=== PATIENT | male | born 1935 | race Caucasian/White ===

== ENCOUNTER 2017-11-11 20:40 | Observation (INO) | payer MEDICARE, OTHER ==
[~2017-11-11] VITALS: Ht 182.9 cm; Wt 96.5 kg
[~2017-11-11 20:40] MED LIST: ASPI81EC PO; Bactrim Ds Tab1 EACH PO; CALC.25 PO; CALCAVITDA PO; CARV6.25 PO; CLON.1 PO; DOXA4 PO; FURO20 PO; FURO40 PO; FURO80 PO; GABA100 PO; HYDCHL25 PO; LOSA50 PO; MERIBIN5 MG PO; POTA10T PO; POTCHL10ER PO
[2017-11-11 21:39] LABS: BASOPHILS ABSOLUTE AUTO 0.02 K/mm3 (0.00-0.23); BASOPHILS PERCENT AUTO 0 % (0-2); EOSINOPHILS PERCENT AUTO 0 % (0-6); Hematocrit 41.3 % (37.0-53.0); Hemoglobin 14.2 g/dL (13.5-17.5); IMMATURE GRAN ABSOLUTE AUTO 0.33 K/mm3 (0.00-0.10); IMMATURE GRAN PERCENT AUTO 3 % (0-1); LYMPHOCYTES ABSOLUTE AUTO 1.25 K/mm3 (0.84-5.20); LYMPHOCYTES PERCENT AUTO 9 % (21-46); MONOCYTES ABSOLUTE AUTO 0.71 K/mm3 (0.16-1.47); MONOCYTES PERCENT AUTO 5 % (4-13); Mean Corpuscular HGB 30.3 pg (26.0-34.0); Mean Corpuscular HGB Conc 34.4 g/dL (31.5-36.5); Mean Corpuscular Volume 88 fL (80-100); Mean Platelet Volume 9.9 fL (9.1-12.4); NEUTROPHILS ABSOLUTE AUTO 11.08 K/mm3 (1.96-9.15); NEUTROPHILS PERCENT AUTO 83 % (41-73); NRBC ABSOLUTE 0.02 K/mm3 (0.00-0.02); NRBC Auto 0.1 /100 WBC (0.0-0.2); Platelet Count 130 K/mm3 (150-400); RDW Coefficient Variation 14.7 % (11.7-14.2); RDW Standard Deviation 46.8 fL (35.1-46.3); Red Blood Cell Count 4.68 M/mm3 (4.30-5.90); White Blood Cell Count 13.39 K/mm3 (4.00-11.30)
[2017-11-11 21:57] LABS: Albumin, Blood 2.8 g/dL (3.4-5.0); Albumin/Globulin Ratio 0.8 (0.8-1.8); Bilirubin, Total 0.7 mg/dL (0.1-1.0); Bun/Creatinine Ratio 28.8 (12.0-20.0); Calcium, Blood 8.8 mg/dL (8.5-10.1); Creatinine, Blood 1.84 mg/dL (0.60-1.20); Globulin, Blood 3.5 g/dL (2.2-4.0); Potassium, Blood 4.1 mmol/L (3.5-5.5); Total Protein, Blood 6.3 g/dL (6.4-8.2)
[2017-11-11] MEDS ORDERED: CARV3.125 PO (22:39)
[2017-11-11] MEDS ORDERED: NYSTRITC TOP (22:39)
[2017-11-11] MEDS ORDERED: BUME2 PO (22:39)
[2017-11-11] MEDS ORDERED: ATOR10 PO (22:40)
[2017-11-11] MEDS ORDERED: PRED20 PO (22:40)
[2017-11-11] MEDS ORDERED: FAMO20 PO (22:40)
[2017-11-11 22:58] LABS: Source, Urine Catheter
[2017-11-11 23:12] LABS: Appearance, Urine Clear (Clear); Bilirubin, Urine Neg (Neg); Blood, Urine Neg (Neg); Color, Urine Yellow (P-Yellow); Glucose Qualitative, Urine 3+ (Neg); Ketones, Urine Neg (Neg); Leukocyte Esterase, Urine Neg (Neg); Nitrite, Urine Neg (Neg); Protein, Urine 3+ (Neg); Urobilinogen, Urine NORM (Normal); pH, Urine 6.5 (5.0-8.0)
[2017-11-11 23:18] LABS: Bacteria Not Seen /hpf; Red Blood Cells, Urine Not Seen /hpf (0-2); Squamous Epithelial Cells Few /hpf (Few); White Blood Cells, Urine Rare /hpf (0-5)
[2017-11-12 04:39] LABS: Hematocrit 34.5 % (37.0-53.0); Hemoglobin 11.7 g/dL (13.5-17.5); Mean Corpuscular HGB 30.5 pg (26.0-34.0); Mean Corpuscular HGB Conc 33.9 g/dL (31.5-36.5); Mean Corpuscular Volume 90 fL (80-100); Mean Platelet Volume 9.5 fL (9.1-12.4); NRBC ABSOLUTE 0.03 K/mm3 (0.00-0.02); NRBC Auto 0.4 /100 WBC (0.0-0.2); Platelet Count 86 K/mm3 (150-400); RDW Coefficient Variation 14.7 % (11.7-14.2); RDW Standard Deviation 47.3 fL (35.1-46.3); Red Blood Cell Count 3.84 M/mm3 (4.30-5.90); White Blood Cell Count 8.38 K/mm3 (4.00-11.30)
[2017-11-12 05:02] LABS: Albumin, Blood 2.2 g/dL (3.4-5.0); Albumin/Globulin Ratio 0.8 (0.8-1.8); Bilirubin, Total 0.7 mg/dL (0.1-1.0); Bun/Creatinine Ratio 27.5 (12.0-20.0); Calcium, Blood 8.5 mg/dL (8.5-10.1); Creatinine, Blood 1.67 mg/dL (0.60-1.20); Globulin, Blood 2.9 g/dL (2.2-4.0); Potassium, Blood 3.8 mmol/L (3.5-5.5); Total Protein, Blood 5.1 g/dL (6.4-8.2)
[2017-11-13 05:20] LABS: Hematocrit 31.1 % (37.0-53.0); Hemoglobin 10.5 g/dL (13.5-17.5); Mean Corpuscular HGB 30.5 pg (26.0-34.0); Mean Corpuscular HGB Conc 33.8 g/dL (31.5-36.5); Mean Corpuscular Volume 90 fL (80-100); Platelet Count 92 K/mm3 (150-400); RDW Coefficient Variation 14.9 % (11.7-14.2); RDW Standard Deviation 48.7 fL (35.1-46.3); Red Blood Cell Count 3.44 M/mm3 (4.30-5.90); White Blood Cell Count 8.59 K/mm3 (4.00-11.30)
[2017-11-13 05:36] LABS: Bun/Creatinine Ratio 25.3 (12.0-20.0); Creatinine, Blood 1.62 mg/dL (0.60-1.20); Potassium, Blood 4.1 mmol/L (3.5-5.5)
[2017-11-14 05:48] LABS: Hematocrit 31.3 % (37.0-53.0); Hemoglobin 10.6 g/dL (13.5-17.5)
[2017-11-14 06:04] LABS: Anion Gap 8 mmol/L (6-16); Blood Urea Nitrogen 45 mg/dL (8-24); Bun/Creatinine Ratio 24.9 (12.0-20.0); CO2, Blood 28 mmol/L (21-32); Calcium, Blood 8.2 mg/dL (8.5-10.1); Chloride, Blood 104 mmol/L (98-108); Creatinine, Blood 1.81 mg/dL (0.60-1.20); Glomerular Filtration Rate 39 (60-); Glucose, Blood 157 mg/dL (70-99); Magnesium, Blood 1.9 mg/dL (1.6-2.4); Phosphorus, Blood 2.8 mg/dL (2.5-4.9); Potassium, Blood 4.1 mmol/L (3.5-5.5); Sodium, Blood 140 mmol/L (136-145)
[2017-11-14] MEDS ORDERED: LOSA25 PO (14:45)
[2017-11-14] MEDS ORDERED: ACIDOPHILUS1 EAC1 PO (14:57)
[2017-11-14] MEDS ORDERED: Bactrim 400-801 EACH PO (14:58)
[2017-11-14] MEDS ORDERED: TAMS.4ER PO (14:58)
[2017-11-14] MEDS ORDERED: CEPH500 PO (14:59)
[2017-11-14] MEDS ORDERED: METR500 PO (15:00)
== END 2017-11-14 15:41 | disposition home or self-care (01) ==
LOC: ER 20:40 → MEDS 20:41 → ER 11-12 01:13 → MEDS 11-12 01:13 → ENPENDDIS 11-14 12:00 → MEDS 11-14 15:41
PROVIDERS: Emergency Medicine; Internal Medicine; Internal Medicine Nephrology
DX: R33.9 Retention of urine, unspecified (principal); K57.32 Diverticulitis of large intestine without perforation or abscess without bleeding; E11.22 Type 2 diabetes mellitus with diabetic chronic kidney disease; I12.9 Hypertensive chronic kidney disease with stage 1 through stage 4 chronic kidney disease, or unspecified chronic kidney disease; N18.3 Chronic kidney disease, stage 3 (moderate); D63.1 Anemia in chronic kidney disease; E86.0 Dehydration; E88.09 Other disorders of plasma-protein metabolism, not elsewhere classified; E86.9 Volume depletion, unspecified; F19.20 Other psychoactive substance dependence, uncomplicated; E11.649 Type 2 diabetes mellitus with hypoglycemia without coma; Z79.52 Long term (current) use of systemic steroids; Z79.899 Other long term (current) drug therapy; Z88.8 Allergy status to other drugs, medicaments and biological substances; Z79.82 Long term (current) use of aspirin
CPT/HCPCS: 36415; 51702; 51798; 74176; 80048; 80053; 80069; 81001; 83036; 83690; 83735; 85014; 85018; 85025; 85027; 96365; 96366; 96367; 96372; 96375; 96376; 99285; G0378; J0696; J0744; J1650; J2405; J3010; J7030

== ENCOUNTER 2017-12-21 15:02 | Emergency (ER) | payer MEDICARE, OTHER ==
[~2017-12-21] VITALS: Ht 182.9 cm; Wt 97.5 kg
[~2017-12-21 15:02] MED LIST changes: +ACIDOPHILUS1 EAC1 PO; +ATOR10 PO; +BUME2 PO; +Bactrim 400-801 EACH PO; +CARV3.125 PO; +CEPH500 PO; +FAMO20 PO; +LOSA25 PO; +METR500 PO; +NYSTRITC TOP; +PRED20 PO; +TAMS.4ER PO
[2017-12-21] MEDS ORDERED: CARV3.125 PO (15:32)
[2017-12-21] MEDS ORDERED: LOSA25 PO (15:33)
[2017-12-21] MEDS ORDERED: BUME2 PO (15:33)
[2017-12-21] MEDS ORDERED: PRED20 PO (15:34)
[2017-12-21] MEDS ORDERED: TAMS.4ER PO (15:35)
[2017-12-21 16:05] LABS: Calcium, Ionized (POC) 1.04 mmol/L (1.10-1.46); Chloride (POC) 91 mmol/L (98-108); Creatinine (POC) 1.8 mg/dL (0.8-1.3); Glucose (ISTAT POC) 327 mg/dL (70-99); Hemoglobin (POC) 12.2 g/dL (13.5-17.5); Potassium (POC) 3.9 mmol/L (3.5-5.5); Sodium (POC) 132 mmol/L (135-148); Total CO2 (POC) 32 mmol/L (21-32)
[2017-12-21] MEDS ORDERED: Coumadin5 MG PO (17:47)
[2017-12-21] MEDS ORDERED: Lovenox100 MG/1 M SC (17:47)
[2017-12-21 18:27] LABS: International Normalized Ratio 1.01; Prothrombin Time Results 10.4 Sec (9.7-11.5)
[2017-12-23] MEDS ORDERED: GLIP5 PO (16:19)
== END 2017-12-21 18:22 | disposition home or self-care (01) ==
LOC: ER 15:02
PROVIDERS: Physician Assistant
DX: I82.411 Acute embolism and thrombosis of right femoral vein (principal); Z88.8 Allergy status to other drugs, medicaments and biological substances; Z79.899 Other long term (current) drug therapy; Z79.52 Long term (current) use of systemic steroids; Z79.2 Long term (current) use of antibiotics; I10 Essential (primary) hypertension; Z87.891 Personal history of nicotine dependence
CPT/HCPCS: 36415; 80047; 85014; 85610; 96372; 99283; J1650

== ENCOUNTER 2018-05-31 12:00 | Emergency (ER) | payer MEDICARE, OTHER ==
[~2018-05-31] VITALS: Ht 182.9 cm; Wt 86.2 kg
[~2018-05-31 12:00] MED LIST changes: +CIPR250 PO; +Cardizem LA180 MG PO; +Coumadin5 MG PO; +GLIP5 PO; +LEVFLO500 PO; +Lovenox100 MG/1 M SC; +Macrodantin100 MG PO; +Novolog Fl100 UNIT/1 SC; +Novolog Fl100 UNIT/1 SQ; +POTCHL20ER PO; +SPIR25 PO; +Vancocin HCL1000 M1 PO
[2018-05-31 13:31] LABS: BASOPHILS ABSOLUTE AUTO 0.05 K/mm3 (0.00-0.23); BASOPHILS PERCENT AUTO 0 % (0-2); EOSINOPHILS ABSOLUTE AUTO 0.07 K/mm3 (0.00-0.68); EOSINOPHILS PERCENT AUTO 1 % (0-6); Hematocrit 35.8 % (37.0-53.0); Hemoglobin 10.9 g/dL (13.5-17.5); IMMATURE GRAN ABSOLUTE AUTO 0.06 K/mm3 (0.00-0.10); IMMATURE GRAN PERCENT AUTO 1 % (0-1); LYMPHOCYTES ABSOLUTE AUTO 1.25 K/mm3 (0.84-5.20); LYMPHOCYTES PERCENT AUTO 11 % (21-46); MONOCYTES ABSOLUTE AUTO 1.04 K/mm3 (0.16-1.47); MONOCYTES PERCENT AUTO 9 % (4-13); Mean Corpuscular HGB 28.5 pg (26.0-34.0); Mean Corpuscular HGB Conc 30.4 g/dL (31.5-36.5); Mean Corpuscular Volume 94 fL (80-100); NEUTROPHILS ABSOLUTE AUTO 9.07 K/mm3 (1.96-9.15); NEUTROPHILS PERCENT AUTO 79 % (41-73); RDW Coefficient Variation 15.9 % (11.7-14.2); RDW Standard Deviation 54.8 fL (35.1-46.3); Red Blood Cell Count 3.83 M/mm3 (4.30-5.90); White Blood Cell Count 11.54 K/mm3 (4.00-11.30)
[2018-05-31 13:38] LABS: Albumin, Blood 2.7 g/dL (3.4-5.0); Albumin/Globulin Ratio 0.6 (0.8-1.8); Bilirubin, Total 0.5 mg/dL (0.1-1.0); Bun/Creatinine Ratio 14.7 (12.0-20.0); Calcium, Blood 10.3 mg/dL (8.5-10.1); Creatinine, Blood 2.32 mg/dL (0.60-1.20); Globulin, Blood 4.8 g/dL (2.2-4.0); Potassium, Blood 4.9 mmol/L (3.5-5.5); Total Protein, Blood 7.5 g/dL (6.4-8.2)
[2018-05-31 13:47] LABS: International Normalized Ratio 1.01; Prothrombin Time Results 10.4 Sec (9.7-11.5)
[2018-05-31 13:48] LABS: Mean Platelet Volume 10.3 fL (9.1-12.4); Platelet Count 255 K/mm3 (150-400)
[2018-05-31] MEDS ORDERED: MAGCHL64ER PO (15:17)
[2018-05-31] MEDS ORDERED: BUME2 PO (15:17)
[2018-05-31] MEDS ORDERED: FLUC150A PO (15:17)
[2018-05-31] MEDS ORDERED: NYST100000 (15:18)
== END 2018-05-31 17:39 | disposition home or self-care (01) ==
LOC: ER 12:00
PROVIDERS: Physician Assistant
DX: I82.402 Acute embolism and thrombosis of unspecified deep veins of left lower extremity (principal); I10 Essential (primary) hypertension; R22.42 Localized swelling, mass and lump, left lower limb; M79.605 Pain in left leg; I82.412 Acute embolism and thrombosis of left femoral vein; I82.432 Acute embolism and thrombosis of left popliteal vein; I82.4Z2 Acute embolism and thrombosis of unspecified deep veins of left distal lower extremity
CPT/HCPCS: 36415; 80053; 85025; 85610; 85730; 93005; 93010; 93971; 99283-25

== ENCOUNTER 2018-06-19 15:10 | Day surgery (SDC) | payer MEDICARE, OTHER ==
[~2018-06-19 15:10] MED LIST changes: +FLUC150A PO; +MAGCHL64ER PO; +NYST100000
[2018-06-19] MEDS ORDERED: Stool Softener100 MG PO (15:56)
[2018-06-19] MEDS ORDERED: 24 HOUR ALLERG9.9 ML (15:57)
--- NOTE | 2018-06-19 18:45 | NUR ---
1700: PT WAITED AFTER INFUSION FINISHED TO MONITOR FOR S/S OF REACTION. IV FLUSHED WITH 10 ML NS AND SWAB CAP PLACED. 2X2 GAUZE UNDER END CAPS/CLAMP AND OVER SITE AND WRAPPED LIGHTLY IN COBAN TO MAINTAIN INTEGRITY OF SITE. PT TEACHING ON IV SITE CARE. VERBALIZED UNDERSTANDING. PT TO RETURN TOMORROW FOR INFUSION.
== END 2018-06-19 16:55 | disposition home or self-care (01) ==
LOC: ATC 15:10
DX: N39.0 Urinary tract infection, site not specified (principal)
CPT/HCPCS: 96365; J0713

== ENCOUNTER 2018-06-20 00:05 | Day surgery (SDC) | payer MEDICARE, OTHER ==
[~2018-06-20 00:05] MED LIST changes: +24 HOUR ALLERG9.9 ML; +Stool Softener100 MG PO
== END 2018-06-20 16:39 | disposition home or self-care (01) ==
LOC: ATC 00:05
DX: N39.0 Urinary tract infection, site not specified (principal)
CPT/HCPCS: 96365; J0713

== ENCOUNTER 2018-06-21 00:18 | Day surgery (SDC) | payer MEDICARE, OTHER | END 2018-06-21 16:00 | disposition home or self-care (01) | LOC: ATC 00:18 | DX: N39.0 Urinary tract infection, site not specified (principal); I12.9 Hypertensive chronic kidney disease with stage 1 through stage 4 chronic kidney disease, or unspecified chronic kidney disease; N18.4 Chronic kidney disease, stage 4 (severe); D63.1 Anemia in chronic kidney disease; R05 Cough; J47.9 Bronchiectasis, uncomplicated; R91.8 Other nonspecific abnormal finding of lung field; J43.9 Emphysema, unspecified | CPT/HCPCS: 71250; 96365; J0713 ==

== ENCOUNTER 2018-06-22 00:58 | Day surgery (SDC) | payer MEDICARE, OTHER | END 2018-06-22 15:55 | disposition home or self-care (01) | LOC: ATC 00:58 | DX: N39.0 Urinary tract infection, site not specified (principal); I12.9 Hypertensive chronic kidney disease with stage 1 through stage 4 chronic kidney disease, or unspecified chronic kidney disease; N18.4 Chronic kidney disease, stage 4 (severe); D63.1 Anemia in chronic kidney disease | CPT/HCPCS: 96365; J0713 ==

== ENCOUNTER 2018-06-23 00:58 | Day surgery (SDC) | payer MEDICARE, OTHER | END 2018-06-23 23:06 | disposition home or self-care (01) | LOC: ATC 00:58 | DX: N39.0 Urinary tract infection, site not specified (principal); I12.9 Hypertensive chronic kidney disease with stage 1 through stage 4 chronic kidney disease, or unspecified chronic kidney disease; N18.4 Chronic kidney disease, stage 4 (severe); D63.1 Anemia in chronic kidney disease | CPT/HCPCS: 96365; J0713 ==

== ENCOUNTER 2018-11-13 10:12 | Day surgery (SDC) | payer MEDICARE, OTHER ==
[~2018-11-13] VITALS: Ht 177.8 cm; Wt 97.7 kg
[2018-11-13] MEDS ORDERED: METO5 PO (11:19)
[2018-11-13] MEDS ORDERED: CARV25 PO (11:20)
[2018-11-13] MEDS ORDERED: CYCLOPHOSPHAMID50 MG PO (11:20)
[2018-11-13] MEDS ORDERED: GLUC500 PO (11:21)
[2018-11-13] MEDS ORDERED: ASCO500 PO (11:21)
[2018-11-13 11:30] LABS: BASOPHILS ABSOLUTE AUTO 0.05 K/mm3 (0.00-0.23); BASOPHILS PERCENT AUTO 2 % (0-2); EOSINOPHILS ABSOLUTE AUTO 0.11 K/mm3 (0.00-0.68); EOSINOPHILS PERCENT AUTO 4 % (0-6); Hematocrit 33.3 % (37.0-53.0); Hemoglobin 10.4 g/dL (13.5-17.5); IMMATURE GRAN ABSOLUTE AUTO 0.02 K/mm3 (0.00-0.10); IMMATURE GRAN PERCENT AUTO 1 % (0-1); LYMPHOCYTES PERCENT AUTO 17 % (21-46); MONOCYTES ABSOLUTE AUTO 0.33 K/mm3 (0.16-1.47); MONOCYTES PERCENT AUTO 11 % (4-13); Mean Corpuscular HGB 30.6 pg (26.0-34.0); Mean Corpuscular HGB Conc 31.2 g/dL (31.5-36.5); Mean Corpuscular Volume 98 fL (80-100); Mean Platelet Volume 10.1 fL (9.1-12.4); NEUTROPHILS ABSOLUTE AUTO 1.98 K/mm3 (1.96-9.15); NEUTROPHILS PERCENT AUTO 66 % (41-73); Platelet Count 190 K/mm3 (150-400); RDW Coefficient Variation 18.2 % (11.7-14.2); RDW Standard Deviation 65.1 fL (35.1-46.3); White Blood Cell Count 2.99 K/mm3 (4.00-11.30)
[2018-11-13 11:38] LABS: International Normalized Ratio 0.98; Prothrombin Time Results 10.4 Sec (9.7-11.5)
[2018-11-13 11:39] LABS: Bun/Creatinine Ratio 15.1 (12.0-20.0); Calcium, Blood 8.5 mg/dL (8.5-10.1); Creatinine, Blood 3.65 mg/dL (0.60-1.20); Potassium, Blood 3.7 mmol/L (3.5-5.5)
--- NOTE | 2018-11-13 12:06 | NUR ---
PT PREPPED AND READY FOR PERMACATH PROCEDURE. DR. LUIS AT BEDSIDE TO SIGN PAPERWORK. PT APPEARS TO HAVE NO NEEDS AT THIS TIME.
--- NOTE | 2018-11-13 14:12 | NUR ---
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 ARMIJO. REPORTED THAT PT WILL BE CALLED BY [facility], [facility] WHEN IT IS APPROPRIATE TO SCHEDULE DIALYSIS. PT AND HIS AWARE. PT EATING AND DRINKING POST PROCEDURE. TOLERATING WELL. DENIES PAIN. PT HAVING HYPERTENSION, HAS HOME MEDS, PER DR. LUIS PT IS OKAY TO TAKE HOME BP MEDICATION, COREG. WILL CONTINUE TO MONITOR.
--- NOTE | 2018-11-13 15:01 | NUR ---
PT VERBALIZED UNDERSTANDING OF D/C INSTRUCTIONS. PERMACATH TO RIGHT CHEST WNL, STERI STRIPS OOZY, PRESSURE DRESSING REMAINS IN PLACE AT TIME OF DISPO. PT AMBULATES WITH STEADY GAIT TO RESTROOM. HERE TO DRIVE HIM HOME. PT DENIES PAIN OR SOB. BP SLOWLY DECREASING, PT REPORTS HE WILL MONITOR AT HOME. PT DENIES NEED FOR W/C OUT TO PRIVATE VEHICLE. NADN AT TIME OF DISPO. ENCOURAGED TO FOLLOW UP WITH DR ARMIJO OR ATIF.
--- NOTE | 2018-11-13 16:30 | NUR ---
PT RETURNS TO HEART CENTER C/O BLEEDING FROM SMALL INCISION FROM TUNNELED CATHETER PLACEMENT. 15 MINUTES MANUAL PRESSURE HELD ABOVE INCISION, BLEEDING STOPPED. RED CLOTH DOT DRESSING APPLIED. NEW PRESSURE DRESSING APPLIED. DR. LUIS PREVIOUSLY IN TO SEE PT. PT ENCOURAGED TO RETURN WITH ANY OTHER BLEEDING ISSUES. VSS. PT AMBULATES TO PRIVATE VEHICLE WITH STEADY GAIT, DRIVING HIM HOME.
== END 2018-11-13 16:45 | disposition home or self-care (01) ==
LOC: MHTC 10:12
PROVIDERS: Radiology Diagnostic Radiology
DX: I12.0 Hypertensive chronic kidney disease with stage 5 chronic kidney disease or end stage renal disease (principal); E11.22 Type 2 diabetes mellitus with diabetic chronic kidney disease; N18.6 End stage renal disease; G47.33 Obstructive sleep apnea (adult) (pediatric); D50.9 Iron deficiency anemia, unspecified; E78.5 Hyperlipidemia, unspecified; Z79.899 Other long term (current) drug therapy
CPT/HCPCS: 36558; 76937; 80048; 85025; 85610; 99152; 99153; C1750; C1769; J1644; J2250; J3010; J7040

== ENCOUNTER 2018-11-14 09:50 | Emergency (ER) | payer MEDICARE, OTHER ==
[~2018-11-14] VITALS: Ht 182.9 cm; Wt 99.8 kg
[~2018-11-14 09:50] MED LIST changes: +ASCO500 PO; +CARV25 PO; +CYCLOPHOSPHAMID50 MG PO; +GLUC500 PO; +METO5 PO
[2018-11-14 10:32] LABS: BASOPHILS ABSOLUTE AUTO 0.04 K/mm3 (0.00-0.23); BASOPHILS PERCENT AUTO 2 % (0-2); EOSINOPHILS ABSOLUTE AUTO 0.07 K/mm3 (0.00-0.68); EOSINOPHILS PERCENT AUTO 3 % (0-6); Hematocrit 32.6 % (37.0-53.0); Hemoglobin 10.3 g/dL (13.5-17.5); IMMATURE GRAN PERCENT AUTO 0 % (0-1); LYMPHOCYTES ABSOLUTE AUTO 0.45 K/mm3 (0.84-5.20); LYMPHOCYTES PERCENT AUTO 19 % (21-46); MONOCYTES ABSOLUTE AUTO 0.37 K/mm3 (0.16-1.47); MONOCYTES PERCENT AUTO 15 % (4-13); Mean Corpuscular HGB 31.1 pg (26.0-34.0); Mean Corpuscular HGB Conc 31.6 g/dL (31.5-36.5); Mean Corpuscular Volume 99 fL (80-100); NEUTROPHILS ABSOLUTE AUTO 1.49 K/mm3 (1.96-9.15); NEUTROPHILS PERCENT AUTO 62 % (41-73); Platelet Count 168 K/mm3 (150-400); RDW Standard Deviation 64.5 fL (35.1-46.3); Red Blood Cell Count 3.31 M/mm3 (4.30-5.90); White Blood Cell Count 2.42 K/mm3 (4.00-11.30)
[2018-11-14 10:54] LABS: Bun/Creatinine Ratio 15.3 (12.0-20.0); Calcium, Blood 8.1 mg/dL (8.5-10.1); Creatinine, Blood 3.65 mg/dL (0.60-1.20); Potassium, Blood 3.9 mmol/L (3.5-5.5)
== END 2018-11-14 11:31 | disposition home or self-care (01) ==
LOC: ER 09:50
PROVIDERS: Emergency Medicine
DX: R60.0 Localized edema (principal); I12.0 Hypertensive chronic kidney disease with stage 5 chronic kidney disease or end stage renal disease; N18.6 End stage renal disease; Z88.8 Allergy status to other drugs, medicaments and biological substances; Z79.899 Other long term (current) drug therapy; I48.91 Unspecified atrial fibrillation; Z87.891 Personal history of nicotine dependence
CPT/HCPCS: 36415; 80048; 85025; 93971; 99284-25

== ENCOUNTER → 2019-01-11 | Outpatient (CLI) | payer MEDICARE, OTHER | END | disposition home or self-care (01) | LOC: EDSTATUS 11:22 → LAB 12:23 → LAB SHORT 12:23 | DX: D51.8 Other vitamin B12 deficiency anemias (principal) | CPT/HCPCS: 82607; 82746 ==

== ENCOUNTER → 2019-04-01 | Outpatient (CLI) | payer MEDICARE, OTHER ==
[2019-04-01 16:51] LABS: Albumin, Blood 3.4 g/dL (3.4-5.0); Albumin/Globulin Ratio 1.2 (0.8-1.8); Bilirubin, Total 0.7 mg/dL (0.1-1.0); Bun/Creatinine Ratio 21.6 (12.0-20.0); Calcium, Blood 9.3 mg/dL (8.5-10.1); Creatinine, Blood 2.68 mg/dL (0.60-1.20); Globulin, Blood 2.9 g/dL (2.2-4.0); Potassium, Blood 3.8 mmol/L (3.5-5.5); Total Protein, Blood 6.3 g/dL (6.4-8.2)
== END | disposition home or self-care (01) ==
LOC: LAB SHORT 13:10 → LAB 13:10
PROVIDERS: Internal Medicine Hematology & Oncology
DX: E11.65 Type 2 diabetes mellitus with hyperglycemia (principal); D64.9 Anemia, unspecified
CPT/HCPCS: 80053

== ENCOUNTER 2019-12-05 00:09 | Day surgery (SDC) | payer MEDICARE, OTHER ==
[~2019-12-05 00:09] MED LIST changes: -24 HOUR ALLERG9.9 ML; +FERROUS SULFAT324 MG PO; +FLONASE ALLERG9.9 M2
== END 2019-12-05 15:36 | disposition home or self-care (01) ==
LOC: ATC 00:09
DX: N39.0 Urinary tract infection, site not specified (principal); I12.9 Hypertensive chronic kidney disease with stage 1 through stage 4 chronic kidney disease, or unspecified chronic kidney disease; N18.9 Chronic kidney disease, unspecified; Z79.899 Other long term (current) drug therapy
CPT/HCPCS: 96365; J0713

== ENCOUNTER 2019-12-06 01:55 | Day surgery (SDC) | payer MEDICARE, OTHER | END 2019-12-06 15:29 | disposition home or self-care (01) | LOC: ATC 01:55 | DX: N39.0 Urinary tract infection, site not specified (principal); I12.9 Hypertensive chronic kidney disease with stage 1 through stage 4 chronic kidney disease, or unspecified chronic kidney disease; N18.9 Chronic kidney disease, unspecified; Z79.899 Other long term (current) drug therapy | CPT/HCPCS: 96365; J0713 ==

== ENCOUNTER 2020-06-09 12:05 | Inpatient (IN) | payer MEDICARE, OTHER ==
[~2020-06-09] VITALS: Ht 182.9 cm; Wt 96.0 kg
[~2020-06-09 12:05] MED LIST changes: -ACIDOPHILUS1 EAC1 PO; -CARV25 PO; +CARVEDILOL12.5 MG PO; -FERROUS SULFAT324 MG PO; +FERROUS SULFAT325 M3 PO; -MAGCHL64ER PO; +Magnesium250 MG PO; +PROBIOTIC1 EA13 PO
[2020-06-09 13:28] LABS: BASOPHILS ABSOLUTE AUTO 0.02 K/mm3 (0.00-0.23); BASOPHILS PERCENT AUTO 0 % (0-2); EOSINOPHILS ABSOLUTE AUTO 0.11 K/mm3 (0.00-0.68); EOSINOPHILS PERCENT AUTO 1 % (0-6); Hematocrit 35.4 % (37.0-53.0); Hemoglobin 11.8 g/dL (13.5-17.5); IMMATURE GRAN ABSOLUTE AUTO 0.03 K/mm3 (0.00-0.10); IMMATURE GRAN PERCENT AUTO 0 % (0-1); LYMPHOCYTES PERCENT AUTO 13 % (21-46); MONOCYTES ABSOLUTE AUTO 1.02 K/mm3 (0.16-1.47); MONOCYTES PERCENT AUTO 13 % (4-13); Mean Corpuscular HGB 33.1 pg (26.0-34.0); Mean Corpuscular HGB Conc 33.3 g/dL (31.5-36.5); Mean Corpuscular Volume 99 fL (80-100); NEUTROPHILS ABSOLUTE AUTO 5.58 K/mm3 (1.96-9.15); NEUTROPHILS PERCENT AUTO 72 % (41-73); Platelet Count 195 K/mm3 (150-400); RDW Coefficient Variation 14.5 % (11.7-14.2); RDW Standard Deviation 52.8 fL (35.1-46.3); Red Blood Cell Count 3.56 M/mm3 (4.30-5.90); White Blood Cell Count 7.76 K/mm3 (4.00-11.30)
[2020-06-09 13:51] LABS: Albumin, Blood 3.1 g/dL (3.4-5.0); Albumin/Globulin Ratio 0.6 (0.8-1.8); Bilirubin, Total 0.5 mg/dL (0.1-1.0); Bun/Creatinine Ratio 32.6 (12.0-20.0); Calcium, Blood 9.7 mg/dL (8.5-10.1); Creatinine, Blood 2.91 mg/dL (0.60-1.20); Globulin, Blood 4.8 g/dL (2.2-4.0); Potassium, Blood 4.1 mmol/L (3.5-5.5); Total Protein, Blood 7.9 g/dL (6.4-8.2)
[2020-06-09 14:30] LABS: Source, Urine Voided
[2020-06-09 14:33] LABS: Bilirubin, Urine Neg (Neg); Blood, Urine Neg (Neg); Glucose Qualitative, Urine Neg (Neg); Ketones, Urine Neg (Neg); Leukocyte Esterase, Urine 1+ (Neg); Nitrite, Urine Neg (Neg); Protein, Urine Neg (Neg); Urobilinogen, Urine NORM (Normal)
[2020-06-09 14:56] LABS: Appearance, Urine Clear (Clear); Color, Urine Pale Yellow (P-Yellow)
[2020-06-09 14:57] LABS: Bacteria Few /hpf; Hyaline Casts 0-2 /lpf (0-2); Red Blood Cells, Urine 0-2 /hpf (0-2); Squamous Epithelial Cells Few /hpf (Few); White Blood Cells, Urine 0-2 /hpf (0-5)
[2020-06-09] MEDS ORDERED: POTCHL20ER PO (16:37)
[2020-06-09] MEDS ORDERED: SPIR25 PO (16:38)
[2020-06-10 04:17] LABS: BASOPHILS ABSOLUTE AUTO 0.03 K/mm3 (0.00-0.23); BASOPHILS PERCENT AUTO 0 % (0-2); EOSINOPHILS ABSOLUTE AUTO 0.12 K/mm3 (0.00-0.68); EOSINOPHILS PERCENT AUTO 2 % (0-6); Hematocrit 32.3 % (37.0-53.0); Hemoglobin 10.8 g/dL (13.5-17.5); IMMATURE GRAN ABSOLUTE AUTO 0.04 K/mm3 (0.00-0.10); IMMATURE GRAN PERCENT AUTO 1 % (0-1); LYMPHOCYTES ABSOLUTE AUTO 1.08 K/mm3 (0.84-5.20); LYMPHOCYTES PERCENT AUTO 15 % (21-46); MONOCYTES ABSOLUTE AUTO 0.81 K/mm3 (0.16-1.47); MONOCYTES PERCENT AUTO 11 % (4-13); Mean Corpuscular HGB 32.8 pg (26.0-34.0); Mean Corpuscular HGB Conc 33.4 g/dL (31.5-36.5); Mean Corpuscular Volume 98 fL (80-100); Mean Platelet Volume 9.9 fL (9.1-12.4); NEUTROPHILS ABSOLUTE AUTO 5.03 K/mm3 (1.96-9.15); NEUTROPHILS PERCENT AUTO 71 % (41-73); Platelet Count 182 K/mm3 (150-400); RDW Coefficient Variation 14.4 % (11.7-14.2); RDW Standard Deviation 51.5 fL (35.1-46.3); Red Blood Cell Count 3.29 M/mm3 (4.30-5.90); White Blood Cell Count 7.11 K/mm3 (4.00-11.30)
[2020-06-10 04:34] LABS: Bun/Creatinine Ratio 34.7 (12.0-20.0); Creatinine, Blood 2.59 mg/dL (0.60-1.20); Potassium, Blood 3.7 mmol/L (3.5-5.5)
--- NOTE | 2020-06-10 04:40 | NUR ---
SHIFT SUMMARY NO ACUTE CHANGES THIS SHIFT, NO C/O ANY KIND, NPO T/O SHIFT, ST BY ASSIST TO D/T IV LINES, SLEEPING AT THIS TIME, CALL LIGHT IN REACH, WILL CONT TO MONITOR UNTIL REPORT GIVEN TO DAY RN.
--- NOTE | 2020-06-10 15:54 | NUR ---
PT IS A/OX3, PLEASANT AND COOPERATIVE, THE PT HAS BEEN NPO T/O THE DAY, THE PT IS SOMEWHAT IRRITABLE DUE TO THE NPO STATUS AND UNSURE WHEN HIS PROCEDURE WILL TAKE PLACE, THE PT APPEARS TO BE BREATHING EASILY ON RA AT THIS TIME, THE PT REPORTED ONLY MILD ABD PAIN AT THIS TIME, IS AT THE BADSIDE, CALL LIGHT IN REACH, WILL CONTINUE TO MONITOR AND ASSESS FOR CHANGES
--- NOTE | 2020-06-10 16:35 | NUR ---
DR MACIAS RECENTLY HERE TO SEE PT, FAMILY PRESENT. THIS RN AND OTHER RN ESTRELLITA DISCUSSED PT'S STATUS WITH DR MACIAS. LAB ALSO HERE RECENLTY.
--- NOTE | 2020-06-10 16:36 | NUR ---
THIS RN RECENTLY RECIEVED REPORT AND IS ASSUMING CARE OF PT.
--- NOTE | 2020-06-10 16:37 | NUR ---
IMAGING REPORTS RECIEVING STAT ORDER FOR CT. PT REPORTS BEEN NPO. ASSISTED WITH ADL'S PRN.
[2020-06-10 16:53] LABS: International Normalized Ratio 1.08; Prothrombin Time Results 11.5 Sec (9.7-11.5)
--- NOTE | 2020-06-10 17:12 | NUR ---
PT TO IMAGING BY W/C, TELE NOTIFIED. FAMILY PRESENT.
--- NOTE | 2020-06-10 18:15 | NUR ---
PT BACK FROM HAVING DRAIN PLACED TO RIGHT LOWER ABD. APPEARS WNL. WILL ORDER DIET. PT GIVEN CRANBERRY JUICE PER HIS REQ.
--- NOTE | 2020-06-10 18:40 | NUR ---
TELE REPORTED EARLIER THAT PT NOT COMING IN ON TELE AFTER PT ARRIVED AFTER HAVING DRAIN PLACED. NEW WIRES, PADS, ADAPTER WERE CHANGED WITH NO SUCCESS. NEW TELE BOX SENT TO PLACE ON TELE. PT TELE CONFIRMED WORKING WITH TELE BOX NUMBER [id number] WITH
--- NOTE | 2020-06-10 19:27 | NUR ---
TELE REPORTS PT CONT TO BE IN PLACE WNL.
--- NOTE | 2020-06-11 06:31 | NUR ---
SHIFT SUMMARY POD#1 DRAIN PLACEMENT. AAOX4/[place]BA. PT REPORTING DISCOMFORT T/O NIGHT AT TOLERABLE LEVEL, DENIES PAIN MEDS. MILD NAUSEA YESTARDAY PM CONTROLLED WITH X1 ZOFRAN. DRAIN WITH 50cc THICK/PURULENT/FOUL DRAINAGE. TELEMETRY IN PLACE, NSR IN 70s T/O NIGHT. PT UP TO RESTROOM SBA. GOOD PO INTAKE + OUTPUT. PT RESTED WELL T/O NIGHT WITH CPAP + CONT PULSE OXIMETRY IN PLACE.
--- NOTE | 2020-06-11 17:50 | NUR ---
PATIENT HAS DECLINED PAIN MEDICATION THROUGHOUT SHIFT. FOUL SMELLING, THICK, YELLOW/MIRANDA DRAINAGE FROM PERC DRAIN. PT UP IN ROOM AND SAT IN CHAIR THIS SHIFT.
--- NOTE | 2020-06-12 08:03 | NUR ---
SHIFT SUMMARY POD#2 CT GUIDED DRAIN PLACEMENT. AAOX4/TWENTY[place]. DISCOMFORT CONTROLLED WITH 2 TYLENOL X2 THIS SHIFT. NO NAUSEA/EMESIS. DRAIN WITH 20cc THICK PURULENT FOUL DRAINAGE OUT. AMBULATING IN HALLS + IN ROOM, SBA. GOOD PO INTAKE + OUTPUT. PT RESTED WELL THIS AM. AWAITING LAB RESULTS. PT CURRENLTY SITTING UP IN BED AWAITING BREAKFAST WITH CALL LIGHT IN REACH. REPORT TO DAY SHIFT RN.
[2020-06-12 08:37] LABS: BASOPHILS ABSOLUTE AUTO 0.02 K/mm3 (0.00-0.23); BASOPHILS PERCENT AUTO 0 % (0-2); EOSINOPHILS ABSOLUTE AUTO 0.17 K/mm3 (0.00-0.68); EOSINOPHILS PERCENT AUTO 2 % (0-6); Hematocrit 32.5 % (37.0-53.0); Hemoglobin 10.8 g/dL (13.5-17.5); IMMATURE GRAN ABSOLUTE AUTO 0.05 K/mm3 (0.00-0.10); IMMATURE GRAN PERCENT AUTO 1 % (0-1); LYMPHOCYTES ABSOLUTE AUTO 1.27 K/mm3 (0.84-5.20); LYMPHOCYTES PERCENT AUTO 16 % (21-46); MONOCYTES ABSOLUTE AUTO 0.72 K/mm3 (0.16-1.47); MONOCYTES PERCENT AUTO 9 % (4-13); Mean Corpuscular HGB 32.9 pg (26.0-34.0); Mean Corpuscular HGB Conc 33.2 g/dL (31.5-36.5); Mean Corpuscular Volume 99 fL (80-100); Mean Platelet Volume 9.7 fL (9.1-12.4); NEUTROPHILS ABSOLUTE AUTO 5.55 K/mm3 (1.96-9.15); NEUTROPHILS PERCENT AUTO 71 % (41-73); Platelet Count 175 K/mm3 (150-400); RDW Coefficient Variation 14.7 % (11.7-14.2); RDW Standard Deviation 53.6 fL (35.1-46.3); Red Blood Cell Count 3.28 M/mm3 (4.30-5.90); White Blood Cell Count 7.78 K/mm3 (4.00-11.30)
[2020-06-12 08:48] LABS: Bun/Creatinine Ratio 25.9 (12.0-20.0); Calcium, Blood 8.9 mg/dL (8.5-10.1); Creatinine, Blood 2.43 mg/dL (0.60-1.20); Potassium, Blood 3.3 mmol/L (3.5-5.5)
[2020-06-12] MEDS ORDERED: SENN187 PO (11:08)
[2020-06-12] MEDS ORDERED: AMOCLA875 PO (11:09)
[2020-06-12] MEDS ORDERED: POTA10T PO (11:10)
[2020-06-12] MEDS ORDERED: PROBIOTIC1 EA13 PO (11:17)
--- NOTE | 2020-06-12 12:50 | NUR ---
provided pt and with discharge teaching re: drain and follow up visits; provided with printed education. peripheral iv removed wnl. pt transferred to awaiting vehicle via wheelchair, pt's transported belongings. pt and state undertanding of discharge instructions
[2020-07-15] MEDS ORDERED: FERSU300 PO (16:29)
[2020-07-15] MEDS ORDERED: PROBIOTIC1 EA13 PO (16:29)
[2020-08-07] MEDS ORDERED: VANCOCIN HCL125 MG PO (13:07)
== END 2020-06-12 13:00 | disposition home or self-care (01) | DRG 393 ==
LOC: ER 12:05 → SURS 12:06
PROVIDERS: Emergency Medicine; Internal Medicine; Nurse Practitioner Acute Care; ADMIT Internal Medicine
PROC: 0K9N30Z Drainage of Right Hip Muscle with Drainage Device, Percutaneous Approach (ICD-10-PCS; principal; 2020-06-10)
DX: K63.2 Fistula of intestine (principal); K68.12 Psoas muscle abscess; K57.20 Diverticulitis of large intestine with perforation and abscess without bleeding; N18.4 Chronic kidney disease, stage 4 (severe); I12.9 Hypertensive chronic kidney disease with stage 1 through stage 4 chronic kidney disease, or unspecified chronic kidney disease; Z90.79 Acquired absence of other genital organ(s); Z87.891 Personal history of nicotine dependence; D50.9 Iron deficiency anemia, unspecified; E87.6 Hypokalemia; J98.4 Other disorders of lung; K59.09 Other constipation
CPT/HCPCS: 36415; 74176; 75989; 80048; 80053; 81001; 85025; 85610; 85730; 86850; 86900; 86901; 87070; 87075; 87076; 87086; 87185; 87205; 94762; 96365; 96366; 96375; 96376; 99285-25; A9270; G0378; J0295; J0744; J2405; J7030

== ENCOUNTER 2020-07-17 14:01 | Inpatient (IN) | payer MEDICARE, OTHER ==
[~2020-07-17] VITALS: Ht 182.9 cm; Wt 100.3 kg
[~2020-07-17 14:01] MED LIST changes: +AMOCLA875 PO; +FERSU300 PO; +SENN187 PO
[2020-07-22] MEDS ORDERED: GABA100 PO (07:01)
[2020-07-22] MEDS ORDERED: MAGNESIUM OXID500 MG PO (07:01)
[2020-07-22] MEDS ORDERED: CENTRUM SILVER1 EAC2 PO (07:01)
[2020-07-22 13:35] LABS: BASOPHILS ABSOLUTE AUTO 0.02 K/mm3 (0.00-0.23); BASOPHILS PERCENT AUTO 0 % (0-2); EOSINOPHILS ABSOLUTE AUTO 0.03 K/mm3 (0.00-0.68); EOSINOPHILS PERCENT AUTO 0 % (0-6); Hematocrit 33.2 % (37.0-53.0); Hemoglobin 10.8 g/dL (13.5-17.5); IMMATURE GRAN ABSOLUTE AUTO 0.03 K/mm3 (0.00-0.10); IMMATURE GRAN PERCENT AUTO 0 % (0-1); LYMPHOCYTES PERCENT AUTO 5 % (21-46); MONOCYTES ABSOLUTE AUTO 0.42 K/mm3 (0.16-1.47); MONOCYTES PERCENT AUTO 5 % (4-13); Mean Corpuscular HGB 31.6 pg (26.0-34.0); Mean Corpuscular HGB Conc 32.5 g/dL (31.5-36.5); Mean Corpuscular Volume 97 fL (80-100); Mean Platelet Volume 9.9 fL (9.1-12.4); NEUTROPHILS ABSOLUTE AUTO 7.59 K/mm3 (1.96-9.15); NEUTROPHILS PERCENT AUTO 89 % (41-73); Platelet Count 134 K/mm3 (150-400); RDW Standard Deviation 53.7 fL (35.1-46.3); Red Blood Cell Count 3.42 M/mm3 (4.30-5.90); White Blood Cell Count 8.49 K/mm3 (4.00-11.30)
--- NOTE | 2020-07-22 14:05 | NUR ---
PT ARRIVED TO ROOM 231 FROM PACU PT IS AWAKE REPORTS PAIN TO HIS THROAT ONLY A FEW ICE CHIPS GIVE NO NAUSEA WILL ASK DR REDDING FOR LOZENGES PT DENIES ABD PAIN NUMB TO ABD WITH EPIDURAL GOOD PAIN CONTROL ORIENTED TO ROOM PT COLD SHIVERING WARM BLANKETS ADDED JAYLENE WOUND VAC MIDLINE HAS SCANT SANG DRAINAGE PT COUGHED UP LG AMT OF THICK YELLOW MUCUS
--- NOTE | 2020-07-22 17:09 | NUR ---
dr sewell and dr londono by to see pt ok to have ice chips prn
--- NOTE | 2020-07-22 18:01 | NUR ---
pt resting offered ice chips pt declined at this time
--- NOTE | 2020-07-22 22:45 | NUR ---
PT ASLEEP, CPAP IN PLACE.
--- NOTE | 2020-07-23 00:41 | NUR ---
CPAP IN PLACE
[2020-07-23 01:45] LABS: Hematocrit 28.4 % (37.0-53.0); Hemoglobin 9.6 g/dL (13.5-17.5); Mean Corpuscular HGB 31.1 pg (26.0-34.0); Mean Corpuscular HGB Conc 33.8 g/dL (31.5-36.5); Mean Platelet Volume 10.1 fL (9.1-12.4); Platelet Count 127 K/mm3 (150-400); RDW Coefficient Variation 15.7 % (11.7-14.2); RDW Standard Deviation 52.3 fL (35.1-46.3); Red Blood Cell Count 3.09 M/mm3 (4.30-5.90); White Blood Cell Count 10.33 K/mm3 (4.00-11.30)
[2020-07-23 01:47] LABS: Bun/Creatinine Ratio 21.9 (12.0-20.0); Calcium, Blood 7.9 mg/dL (8.5-10.1); Creatinine, Blood 3.33 mg/dL (0.60-1.20); Potassium, Blood 4.6 mmol/L (3.5-5.5)
[2020-07-23 01:48] LABS: Mean Corpuscular Volume 92 fL (80-100)
[2020-07-23 02:07] LABS: BAND PERCENT MAN 1 % (0-8); BASOPHILS PERCENT MAN 0 % (0-2); EOSINOPHILS PERCENT MAN 0 % (0-6); LYMPHOCYTES ABSOLUTE MAN 1.13 K/mm3 (0.84-5.20); LYMPHOCYTES PERCENT MAN 11 % (21-46); MONOCYTES PERCENT MAN 2 % (4-13); NEUTROPHILS ABSOLUTE MAN 8.98 K/mm3 (1.96-9.15); SEG NEUTROPHILS PERCENT MAN 86 % (41-73); TOTAL CELLS COUNTED 100
--- NOTE | 2020-07-23 02:53 | NUR ---
PT SLEEPING, CPAP IN PLACE.
--- NOTE | 2020-07-23 06:37 | NUR ---
SHIFT SUMMARY: PURA IS A&OX4. VSS, NO ACUTE EVENTS OVERNIGHT. O2 SATS MAINTAINING ORA. EPIDURAL PATENT. PURA DID USE THE DEMAND BUTTON ONE TIME THIS SHIFT. HE REPORTS GOOD PAIN CONTROL. QUIÑONES IN PLACE DRAINING DARK YELLOW URINE, GFR 19. HE REPORTS SEEING DR. ARMIJO OUTPATIENT AND THAT HIS GFR HAS BEEN RUNNING 18-[address] ARMIJO HAS RECOMMENDED DIALYSIS IF HIS GFR REACHES 12. WILL REQUEST CONSULTATION. JAYLENE WITH SMALL AMOUNT DRAINAGE, COMPRESSED AND PATENT. IV X 2 TO RIGHT ARM PATENT. HE IS ABLE TO MOVE HIMSELF IN BED WELL. HE IS LYING IN BED WITH HIS CALL LIGHT IN REACH. WILL REPORT TO DAY SHIFT RN.
--- NOTE | 2020-07-23 07:48 | NUR ---
DR REDDING HERE WHILE DOING BEDSIDE REPORTING. REPORTS TO DECREASE IVF TO 50/HR AND HAVE THERAPY COME SEE PT.
--- NOTE | 2020-07-23 09:27 | NUR ---
THERAPY HERE TO SEE PT. PT MOVING WELL IN BED. VSS.
--- NOTE | 2020-07-23 10:07 | NUR ---
PT UP IN CHAIR. REPORTS PAIN "NOT TO BAD". PT USED PAIN BUTTON. PT TO CHAIR WITH THERAPY. IVF IN PLACE. DISCUSSED PAIN MGMT.
--- NOTE | 2020-07-23 11:11 | NUR ---
PT CONT TO BE UP IN CHAIR. PT RECLINED PER PT REQ. PT REPORTS PAIN DOING FINE. PT REPORTS HICCUPS BETTER RIGHT NOW. SPIRITUAL CARE HERE TO SEE PT.
--- NOTE | 2020-07-23 11:31 | NUR ---
Patient is sitting on a chair and alert. Patient tells me about his medical issues and the what has taken place to eleviate those issues. Patient repeats himself several times in our conversation but is able to talk about his family, about his life with his as they are [employer] and their many adventures. Patient also shares about his yuliana. He was baptized into the [employer] but attends the [facility] [employer] when they are in the area. Patient is happy to be in town so he could get his health conditions dealt with at [facility]. I normalize patient's experience, reinforce helpful attitudes and practices and provide therapeutic listening and prayer. Patient responds well and shows signs of being encouraged in his yuliana. I will continue to remain available to patient and family.
[2020-07-23 12:22] LABS: Albumin, Blood 2.5 g/dL (3.4-5.0); Anion Gap 14 mmol/L (6-16); Blood Urea Nitrogen 77 mg/dL (8-24); Bun/Creatinine Ratio 21.8 (12.0-20.0); CO2, Blood 18 mmol/L (21-32); Calcium, Blood 8.4 mg/dL (8.5-10.1); Chloride, Blood 104 mmol/L (98-108); Creatinine, Blood 3.53 mg/dL (0.60-1.20); Glomerular Filtration Rate 18 (60-); Glucose, Blood 124 mg/dL (70-99); Phosphorus, Blood 4.7 mg/dL (2.5-4.9); Potassium, Blood 4.4 mmol/L (3.5-5.5); Sodium, Blood 136 mmol/L (136-145)
--- NOTE | 2020-07-23 12:30 | NUR ---
PT BACK TO BED WITH ASSIST PER PT REQ. PT BEEN UP IN CHAIR. PAS IN PLACE. CONT BIOX IN PLACE.
--- NOTE | 2020-07-23 16:49 | NUR ---
DR REDDING HERE TO SEE PT.
--- NOTE | 2020-07-23 18:23 | NUR ---
IMAGING IN ROOM WITH PT.
--- NOTE | 2020-07-23 18:34 | NUR ---
SHIFT SUMMARY PT BEEN TOLERATING ICE CHIPS TODAY ALTHOUGH PT DISCUSSED HAVING NAUSEA X1 TODAY TO DR REDDING, "THAT PASSED ON IT'S OWN". PT REPORTS PASSING GAS. PT BEEN UP TO CHAIR AND TOOK NAP THIS AFTERNOON. EPIDURAL CONTINUES TO BE IN PLACE. DR ARMIJO CONSULTED TODAY. IMAGING IN ROOM AT THIS TIME FOR U.S.. PT USING CALL LIGHT APPR. PT BEEN ASSISTED WITH ADL'S PRN. PT FAMILY BEEN TO SEE PT EARLIER TODAY.
--- NOTE | 2020-07-24 01:18 | NUR ---
PT IS COMPLAINING OF INCREASED PAIN AND ABDOMINAL BLOATING WHICH IS CAUSING SOB. BP IS INCREASED, HAS BEEN TRENDING UP. O2 SATS MAINTAINING ORA. HR STABLE. PT REPORTS NAUSEA WITHOUT EMESIS, MEDICATED PER MAR WITHOUT RELIEF. ACTIVE BT X 4 QUADRANTS. PT DENIES PASSING FLATUS SINCE YESTERDAY, NO BM. ON-CALL PHYSICIAN NOTIFIED, NO NEW ORDERS AT THIS TIME.
--- NOTE | 2020-07-24 02:10 | NUR ---
PT REPORTS INCREASED PAIN EACH TIME HE USES THE BOLUS HANDLE. WETNESS FOUND ON EPIDURAL DRESSING AND SHEET. DR. HERNANDEZ CONTACTED ORDER GIVEN TO D/C EPIDURAL AND COMPLETE Q1 NEURO CHECKS.
--- NOTE | 2020-07-24 02:24 | NUR ---
CATHETER INTACT. APPROX 3 ML SS FLUID LEAKED FROM SITE UPON REMOVAL.
[2020-07-24 02:37] LABS: BASOPHILS ABSOLUTE AUTO 0.03 K/mm3 (0.00-0.23); BASOPHILS PERCENT AUTO 0 % (0-2); EOSINOPHILS PERCENT AUTO 0 % (0-6); Hematocrit 33.7 % (37.0-53.0); Hemoglobin 11.5 g/dL (13.5-17.5); IMMATURE GRAN ABSOLUTE AUTO 0.16 K/mm3 (0.00-0.10); IMMATURE GRAN PERCENT AUTO 1 % (0-1); LYMPHOCYTES ABSOLUTE AUTO 1.13 K/mm3 (0.84-5.20); LYMPHOCYTES PERCENT AUTO 6 % (21-46); MONOCYTES ABSOLUTE AUTO 1.32 K/mm3 (0.16-1.47); MONOCYTES PERCENT AUTO 7 % (4-13); Mean Corpuscular HGB 31.6 pg (26.0-34.0); Mean Corpuscular HGB Conc 34.1 g/dL (31.5-36.5); Mean Corpuscular Volume 93 fL (80-100); Mean Platelet Volume 9.8 fL (9.1-12.4); NEUTROPHILS PERCENT AUTO 87 % (41-73); Platelet Count 193 K/mm3 (150-400); RDW Coefficient Variation 15.7 % (11.7-14.2); RDW Standard Deviation 54.2 fL (35.1-46.3); Red Blood Cell Count 3.64 M/mm3 (4.30-5.90); White Blood Cell Count 20.34 K/mm3 (4.00-11.30)
[2020-07-24 02:53] LABS: Albumin, Blood 2.5 g/dL (3.4-5.0); Anion Gap 13 mmol/L (6-16); Blood Urea Nitrogen 81 mg/dL (8-24); Bun/Creatinine Ratio 20.7 (12.0-20.0); CO2, Blood 19 mmol/L (21-32); Calcium, Blood 8.3 mg/dL (8.5-10.1); Chloride, Blood 104 mmol/L (98-108); Creatinine, Blood 3.92 mg/dL (0.60-1.20); Glomerular Filtration Rate 16 (60-); Glucose, Blood 147 mg/dL (70-99); Magnesium, Blood 2.1 mg/dL (1.6-2.4); Phosphorus, Blood 4.8 mg/dL (2.5-4.9); Potassium, Blood 4.2 mmol/L (3.5-5.5); Sodium, Blood 136 mmol/L (136-145)
--- NOTE | 2020-07-24 05:48 | NUR ---
SHIFT SUMMARY: PURA IS A&OX4. VS W/INCREASED BP, MAINTAINING SATS ORA, CONTINUOUS BIOX IN PLACE. HE HAS BEEN HAVING EPISODES OF EMESIS THIS MORNING. HE REPORTS MODERATE PAIN RELIEF WITH THE F[place]ANYL TRAINING AND DEVELOPMENT PROFESSIONAL, USES THE BOLUS HANDLE APPROPRIATELY. QUIÑONES IN PLACE DRAINING DARK YELLOW URINE WITH SOME SEDIMENT NOTED. HE MOVES HIMSELF IN BED WELL. HE DENIES ANY NEW NUMBNESS OR TINGLING, ABLE TO MOVE ALL EXTREMITIES WITHOUT DIFFICULTY. HE IS LYING IN BED WITH HIS CALL LIGHT IN REACH. WILL REPORT TO DAY SHIFT RN.
--- NOTE | 2020-07-24 07:46 | NUR ---
NGT TO L NARES RECENTLY PLACED WITH MATTRESS SPRING ENCASER A.G. ASSISTANCE. PT TOLERATED WELL. PT HAD 500 ML OF BROWN LIQUID INITIALLY COME OUT. NGT TO LIS. PT WAS EXPLAINED PROCEDURE PRIOR TO PLACING NGT. NGT TO NOSE WITH ADHESIVE, CLAMPED TO GOWN. PT REPORTS TUBE NOT IN VISION. PT CLEANED UP AND GIVEN NEW GOWN. PT HAD CALL LIGHT AND MIXED CROP FARMER.
--- NOTE | 2020-07-24 08:19 | NUR ---
DR REDDING HERE TO SEE PT.
--- NOTE | 2020-07-24 09:32 | NUR ---
TELE PLACED PT TO HAVE IV METOPROLOL. TELE REPORTS PT SINUS 82. PT REPORTS FINALLY ABLE TO SLEEP AN HOUR WITHOUT WAKING UP. PT HAD 1000 ML OUT OF NGT SO FAR.
--- NOTE | 2020-07-24 16:06 | NUR ---
DR REDDING HERE TO SEE PT.
--- NOTE | 2020-07-24 18:21 | NUR ---
SHIFT SUMMARY PT HAD NGT PLACED EARLY THIS AM. PT BEEN NPO WITH VERY FEW ICE CHIPS. NGT BEEN IN PLACE ALTHOUGH HE REPORTED NAUSEA IT WAS NOTICED THAT TAPE WAS COMING UNDONE, NGT WAS ADVANCED, PLACEMENT CHECKED. NGT TAPE WITH ADHESIVE TAPE. PT TOLERATED WELL. PT BEEN RESTING WHEN NOT DISTURBED. PT FAMILY IN TO SEE PT TODAY. DR REDDING BEEN TO SEE PT MULT TIMES TODAY. PT TO HAVE BLADDER TRAINING OVER-NIGHT AND HAVE QUIÑONES DC'D IN AM. PAS IN PLACE. THERAPY WAS IN ROOM AND WORKED WITH PT TODAY. NGT TO LIS, NEW CANISTER PLACED AT END OF THIS SHIFT. PT HAD 1650 ML OF BROWN LIQUID OUT OF NGT TODAY. CALL LIGHT IN REACH. IMAGING NURSE BUTTON IN REACH. PT REMAINED PLEASANT AND COOPERATIVE TODAY.
--- NOTE | 2020-07-24 18:40 | NUR ---
QUIÑONES CLAMPED FOR BLADDER TRAINING. DISCUSSED WITH TOP KNITTER'S. WILL REPORT TO PAULETTE BRAGA.
[2020-07-25 04:40] LABS: BASOPHILS ABSOLUTE AUTO 0.01 K/mm3 (0.00-0.23); BASOPHILS PERCENT AUTO 0 % (0-2); EOSINOPHILS ABSOLUTE AUTO 0.09 K/mm3 (0.00-0.68); EOSINOPHILS PERCENT AUTO 1 % (0-6); Hematocrit 27.8 % (37.0-53.0); Hemoglobin 9.3 g/dL (13.5-17.5); IMMATURE GRAN ABSOLUTE AUTO 0.06 K/mm3 (0.00-0.10); IMMATURE GRAN PERCENT AUTO 1 % (0-1); LYMPHOCYTES ABSOLUTE AUTO 1.06 K/mm3 (0.84-5.20); LYMPHOCYTES PERCENT AUTO 9 % (21-46); MONOCYTES ABSOLUTE AUTO 1.01 K/mm3 (0.16-1.47); MONOCYTES PERCENT AUTO 9 % (4-13); Mean Corpuscular HGB 31.4 pg (26.0-34.0); Mean Corpuscular HGB Conc 33.5 g/dL (31.5-36.5); Mean Corpuscular Volume 94 fL (80-100); Mean Platelet Volume 9.5 fL (9.1-12.4); NEUTROPHILS ABSOLUTE AUTO 9.35 K/mm3 (1.96-9.15); NEUTROPHILS PERCENT AUTO 81 % (41-73); Platelet Count 132 K/mm3 (150-400); RDW Coefficient Variation 15.5 % (11.7-14.2); RDW Standard Deviation 53.1 fL (35.1-46.3); Red Blood Cell Count 2.96 M/mm3 (4.30-5.90); White Blood Cell Count 11.58 K/mm3 (4.00-11.30)
--- NOTE | 2020-07-25 04:51 | NUR ---
PT WITH SUDDEN SPIKE IN HEART RATE. MAINTAINING 130-140'S.SINUS TACH PER TELE. STARLA CONFIRMED. I CALLED DR DOMINGO AND DISCUSSED NG COLOR PINK STAINED BROWN. 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 DR ARMIJO NOTE OF 07/23 SPEAKS OF FLUID VOLUME EXCESS AND EDEMA. PT CONT WITH EDEMA. CURRENT IV RATE AT 50 ML/HR.PT DISCUSSED METOPROLOL ORDERED FOR HYPERTENSION TODAY.HEART RATE SPIKE IS NEW THIS SHIFT.SEE ORDERS FOR METOPROLOL NOW DOSE.
[2020-07-25 05:08] LABS: Albumin, Blood 2.1 g/dL (3.4-5.0); Anion Gap 14 mmol/L (6-16); Blood Urea Nitrogen 97 mg/dL (8-24); Bun/Creatinine Ratio 22.6 (12.0-20.0); CO2, Blood 21 mmol/L (21-32); Calcium, Blood 7.8 mg/dL (8.5-10.1); Chloride, Blood 108 mmol/L (98-108); Glomerular Filtration Rate 14 (60-); Glucose, Blood 95 mg/dL (70-99); Phosphorus, Blood 4.8 mg/dL (2.5-4.9); Potassium, Blood 3.8 mmol/L (3.5-5.5); Sodium, Blood 143 mmol/L (136-145)
--- NOTE | 2020-07-25 06:24 | NUR ---
METOPROLOL 5 MG IV WAS GIVEN-SEE F/U VS .PCU SKULL SPLITTER SINUS TACH WITH PCS RATE 110 AT THIS TIME.
[2020-07-25 08:16] LABS: Magnesium, Blood 2.1 mg/dL (1.6-2.4); Thyroid Stimulating Hormone 2.21 uIU/mL (0.360-4.800)
--- NOTE | 2020-07-25 15:12 | NUR ---
NGT TO GRAVITY AT THIS TIME. WILL CTM
--- NOTE | 2020-07-25 18:48 | NUR ---
SUMMARY: PT IS POD3 L CHARLES COLECTOMY. A/O, VSS.NO ACUTE CHANGE TODAY. SURGICAL SITES WNL. PT ABLE TO WALK IN HALLS WITH THERAPY. NGT TO GRAVITY AND ADVANCED TO CLEAR LIQ. PT TOLERATED THIS WELL, TOLD TO TAKE PO INTAKE SLOW. NO ACUTE CONCERNS AT THIS TIME. WILL REPORT TO ARIAN BRAGA.
--- NOTE | 2020-07-26 06:42 | NUR ---
SUMMARY HEART RATE STABLE TONIGHT.NG TO GRAVITY WITH NO C/O NAUSEA.PT ABLE TO REPOSTITION P IN BED.
[2020-07-26 07:14] LABS: Hematocrit 27.5 % (37.0-53.0)
[2020-07-26 07:27] LABS: Albumin, Blood 2.1 g/dL (3.4-5.0); Anion Gap 12 mmol/L (6-16); Blood Urea Nitrogen 96 mg/dL (8-24); Bun/Creatinine Ratio 24.1 (12.0-20.0); CO2, Blood 23 mmol/L (21-32); Calcium, Blood 7.8 mg/dL (8.5-10.1); Chloride, Blood 111 mmol/L (98-108); Creatinine, Blood 3.99 mg/dL (0.60-1.20); Glomerular Filtration Rate 15 (60-); Glucose, Blood 102 mg/dL (70-99); Magnesium, Blood 2.2 mg/dL (1.6-2.4); Phosphorus, Blood 4.8 mg/dL (2.5-4.9); Potassium, Blood 3.6 mmol/L (3.5-5.5); Sodium, Blood 146 mmol/L (136-145)
--- NOTE | 2020-07-26 12:29 | NUR ---
NGT DC'D AT THIS TIME. HUMIDIFIER MAINTENANCE WORKER STOPPED, NO VALUE WASTED, VIAL WAS EMPTY. WILL CTM PT STATUS
--- NOTE | 2020-07-26 17:42 | NUR ---
SUMMARY: PT IS POD4 L CHARLES COLECTOMY. NO ACUTE CHANGE, VSS, NSR. SURGICAL SITE WNL. PT HAD SMALL LIQ BM TODAY, REPORTS PASSING GAS. TOLERATING SIPS OF CLEAR LIQ, DIET ADVANCED TO FULL LIQ FOR DINNER. PT DENIES N/V, ABD APPEARS MODERATELY DISTENDED, NO NOTED CHANGE FROM THIS MORNING. PT REPORTS PAIN HAS BEEN WELL MANAGED WITH 1 NARCO. NO SAFETY CONCERNS AT THIS TIME.
[2020-07-27 04:32] LABS: Hematocrit 25.9 % (37.0-53.0); Hemoglobin 8.5 g/dL (13.5-17.5)
[2020-07-27 04:54] LABS: Anion Gap 10 mmol/L (6-16); Blood Urea Nitrogen 94 mg/dL (8-24); Bun/Creatinine Ratio 25.3 (12.0-20.0); CO2, Blood 25 mmol/L (21-32); Calcium, Blood 7.5 mg/dL (8.5-10.1); Chloride, Blood 109 mmol/L (98-108); Creatinine, Blood 3.71 mg/dL (0.60-1.20); Glomerular Filtration Rate 17 (60-); Glucose, Blood 115 mg/dL (70-99); Magnesium, Blood 2.1 mg/dL (1.6-2.4); Phosphorus, Blood 5.3 mg/dL (2.5-4.9); Potassium, Blood 3.4 mmol/L (3.5-5.5); Sodium, Blood 144 mmol/L (136-145)
--- NOTE | 2020-07-27 07:39 | NUR ---
SUMMARY PT AMBULATORY IN HALLS AND ROOM TONIGHTWITH SBA. TOLERATING PO LIQ. HAVING LOOSE GREEN BM THIS AM.REPORTED TO DAY RN MAY WANT TO QUESTION IF NURIA CAN BE DCD TODAY AND NURSE JESSIE SHI RN AGREES TO FOLLOW UP.
--- NOTE | 2020-07-27 17:02 | NUR ---
SHIFT SUMMARY PT A&OX4, TELE SINUS PVCS @ 77 BPM. POD5 CHARLES COLECTOMY, JAYLENE WNL/DRY/INTACT. PAIN MANAGED WITH 5 MG NORCO. JEWEL PO FULL LIQUID DIET. QUIÑONES REMOVED; AWAITING POST REMOVAL VOID. MULTIPLE BM'S. AMBULATING WITH SBA, FWW & GB TO BRP AND HALLWAYS; UP TO CHAIR FOR MEALS. AT BEDSIDE. WILL REPORT TO ONCOMING NOC RN.
[2020-07-28 04:12] LABS: Hematocrit 26.9 % (37.0-53.0); Hemoglobin 8.7 g/dL (13.5-17.5)
--- NOTE | 2020-07-28 04:35 | NUR ---
SHIFT SUMMARY PT IS A/O X4, SBA UP TO BATHROOM. PT TOLERATING FULL LIQUID DIET AND VOIDING. JAYLENE IN PLACE TO ABD WITH FOAM COMPRESSED AND GREEN LIGHT ON. USING 2L O2 NC WHILE ASLEEP. PAIN MANAGED WITH NORCO X1 PRN. BP WAS ELEVATED AT START OF SHIFT; PROVIDER NOTIFIED AND ORDER FOR IV HYDRALAZINE 10MG OBTAINED AND ADMINISTERED. PT RESTING IN BED AT THIS TIME WITH CALL LIGHT IN REACH.
[2020-07-28 04:36] LABS: Anion Gap 10 mmol/L (6-16); Blood Urea Nitrogen 87 mg/dL (8-24); Bun/Creatinine Ratio 26.9 (12.0-20.0); CO2, Blood 22 mmol/L (21-32); Calcium, Blood 7.2 mg/dL (8.5-10.1); Chloride, Blood 110 mmol/L (98-108); Creatinine, Blood 3.24 mg/dL (0.60-1.20); Glomerular Filtration Rate 20 (60-); Glucose, Blood 112 mg/dL (70-99); Magnesium, Blood 1.8 mg/dL (1.6-2.4); Phosphorus, Blood 5.2 mg/dL (2.5-4.9); Sodium, Blood 142 mmol/L (136-145)
--- NOTE | 2020-07-28 15:30 | NUR ---
BLADDER SCAN 225, URINE OUT 250
[2020-07-28] MEDS ORDERED: HYDR1TAB94 PO (15:37)
--- NOTE | 2020-07-28 18:13 | NUR ---
DISCHARGE SUMMARY PT A&OX4, VSS, LEFT FLOOR VIA WC WITH WOOD DIE MAKER, TO GO HOME WITH , WITH ALL PERSONAL POSSESSIONS INCLUDING DC PACKET, MEDIPORE DRESSINGS, AND 1 NARC SCRIPT. DC INSTRUCTIONS PROVIDED. PT AND SPOUSE REP UDNERSTANDING THOSE INSTRUCTIONS INCLUDING FU WITH SURGEON FOR STAPLE REMOVAL, OK TO SHOWER, CHANGE MEDIPORE DRESSINGS DAILY. IV DC'D.
[2020-08-07] MEDS ORDERED: VANCOCIN HCL125 MG PO (13:07)
== END 2020-07-28 16:07 | disposition home or self-care (01) | DRG 330 ==
LOC: SURS 07-22 06:08 → PRE IP 07-22 07:30 → SURS 07-22 14:21
PROVIDERS: Hospitalist; Internal Medicine Nephrology; ADMIT Surgery
PROC: 0DTG0ZZ Resection of Left Large Intestine, Open Approach (ICD-10-PCS; principal; 2020-07-22 07:30)
DX: K57.20 Diverticulitis of large intestine with perforation and abscess without bleeding (principal); K63.2 Fistula of intestine; N25.81 Secondary hyperparathyroidism of renal origin; E87.2 Acidosis; E87.0 Hyperosmolality and hypernatremia; N17.9 Acute kidney failure, unspecified; I48.92 Unspecified atrial flutter; Z87.891 Personal history of nicotine dependence; E88.09 Other disorders of plasma-protein metabolism, not elsewhere classified; E87.6 Hypokalemia; N18.9 Chronic kidney disease, unspecified; I12.9 Hypertensive chronic kidney disease with stage 1 through stage 4 chronic kidney disease, or unspecified chronic kidney disease; E87.70 Fluid overload, unspecified; I48.0 Paroxysmal atrial fibrillation; D50.9 Iron deficiency anemia, unspecified
CPT/HCPCS: 0241U; 36415; 36430; 76770; 80048; 80069; 83735; 84443; 85014; 85018; 85025; 86850; 86900; 86901; 86923; 88305; 94660; 94762; 97110; 97116; 97162; 97530; A9270; J0360; J0690; J0881; J1940; J2405; J2765; J3010; J3480; J7030; J7050; J7120; P9016

== ENCOUNTER 2020-08-03 19:26 | Inpatient (IN) | payer MEDICARE, OTHER ==
[~2020-08-03] VITALS: Ht 180.3 cm; Wt 104.7 kg
[~2020-08-03 19:26] MED LIST changes: +CENTRUM SILVER1 EAC2 PO; +HYDR1TAB94 PO; +MAGNESIUM OXID500 MG PO
[2020-08-03 20:28] LABS: BASOPHILS ABSOLUTE AUTO 0.02 K/mm3 (0.00-0.23); BASOPHILS PERCENT AUTO 0 % (0-2); EOSINOPHILS ABSOLUTE AUTO 0.27 K/mm3 (0.00-0.68); EOSINOPHILS PERCENT AUTO 2 % (0-6); Hematocrit 28.4 % (37.0-53.0); Hemoglobin 9.1 g/dL (13.5-17.5); IMMATURE GRAN ABSOLUTE AUTO 0.06 K/mm3 (0.00-0.10); IMMATURE GRAN PERCENT AUTO 1 % (0-1); LYMPHOCYTES PERCENT AUTO 6 % (21-46); MONOCYTES ABSOLUTE AUTO 1.26 K/mm3 (0.16-1.47); MONOCYTES PERCENT AUTO 10 % (4-13); Mean Corpuscular HGB 31.8 pg (26.0-34.0); Mean Corpuscular Volume 99 fL (80-100); Mean Platelet Volume 10.2 fL (9.1-12.4); NEUTROPHILS ABSOLUTE AUTO 10.08 K/mm3 (1.96-9.15); NEUTROPHILS PERCENT AUTO 81 % (41-73); Platelet Count 225 K/mm3 (150-400); RDW Standard Deviation 57.3 fL (35.1-46.3); Red Blood Cell Count 2.86 M/mm3 (4.30-5.90); White Blood Cell Count 12.49 K/mm3 (4.00-11.30)
[2020-08-03 20:45] LABS: Magnesium, Blood 1.9 mg/dL (1.6-2.4)
[2020-08-03 20:51] LABS: Albumin, Blood 2.2 g/dL (3.4-5.0); Albumin/Globulin Ratio 0.6 (0.8-1.8); Bilirubin, Total 0.4 mg/dL (0.1-1.0); Bun/Creatinine Ratio 18.2 (12.0-20.0); Calcium, Blood 8.3 mg/dL (8.5-10.1); Creatinine, Blood 5.33 mg/dL (0.60-1.20); Globulin, Blood 3.8 g/dL (2.2-4.0); Potassium, Blood 6.8 mmol/L (3.5-5.5)
[2020-08-04 03:10] LABS: BASOPHILS ABSOLUTE AUTO 0.04 K/mm3 (0.00-0.23); BASOPHILS PERCENT AUTO 0 % (0-2); EOSINOPHILS ABSOLUTE AUTO 0.33 K/mm3 (0.00-0.68); EOSINOPHILS PERCENT AUTO 3 % (0-6); Hematocrit 27.9 % (37.0-53.0); Hemoglobin 8.9 g/dL (13.5-17.5); IMMATURE GRAN ABSOLUTE AUTO 0.08 K/mm3 (0.00-0.10); IMMATURE GRAN PERCENT AUTO 1 % (0-1); LYMPHOCYTES ABSOLUTE AUTO 0.92 K/mm3 (0.84-5.20); LYMPHOCYTES PERCENT AUTO 7 % (21-46); MONOCYTES PERCENT AUTO 9 % (4-13); Mean Corpuscular HGB 31.2 pg (26.0-34.0); Mean Corpuscular HGB Conc 31.9 g/dL (31.5-36.5); Mean Corpuscular Volume 98 fL (80-100); Mean Platelet Volume 9.8 fL (9.1-12.4); NEUTROPHILS ABSOLUTE AUTO 10.26 K/mm3 (1.96-9.15); NEUTROPHILS PERCENT AUTO 80 % (41-73); Platelet Count 200 K/mm3 (150-400); RDW Coefficient Variation 15.9 % (11.7-14.2); RDW Standard Deviation 56.7 fL (35.1-46.3); Red Blood Cell Count 2.85 M/mm3 (4.30-5.90); White Blood Cell Count 12.83 K/mm3 (4.00-11.30)
[2020-08-04 03:43] LABS: Magnesium, Blood 1.9 mg/dL (1.6-2.4)
[2020-08-04 03:45] LABS: Albumin, Blood 2.1 g/dL (3.4-5.0); Anion Gap 9 mmol/L (6-16); Blood Urea Nitrogen 96 mg/dL (8-24); Bun/Creatinine Ratio 18.1 (12.0-20.0); CO2, Blood 20 mmol/L (21-32); Calcium, Blood 8.4 mg/dL (8.5-10.1); Chloride, Blood 109 mmol/L (98-108); Creatinine, Blood 5.29 mg/dL (0.60-1.20); Glomerular Filtration Rate 11 (60-); Glucose, Blood 89 mg/dL (70-99); Phosphorus, Blood 8.1 mg/dL (2.5-4.9); Potassium, Blood 6.8 mmol/L (3.5-5.5); Sodium, Blood 138 mmol/L (136-145)
[2020-08-04 04:21] LABS: C DIFFICILE DNA POSITIVE (Negative)
--- NOTE | 2020-08-04 07:24 | NUR ---
SHIFT SUMMARY PT ARRIVED TO THE UNIT AROUND 0300 IN STABLE CONDTION. VITALS WERE, BP 148/85. HR 80'S. O2 SATS >98% ON ROOM AIR, PT STATED SLEEPING WITH A CPAP AT HOME AND HIS WOULD BRING IT IN IN THE MORNING, O2 SATS REMAINED >95% T/O THE NIGHT. PT HAD SEVERAL LOOSE/WATERY BOWEL MOVEMENTS T/O THE NIGHT, PT WAS UNABLE TO CONTROL BM'S AND HAD THEM IN THE BED. BED CHANGES AND ATTENDS CHANGES COMPLETED. AM LABS SHOWED ELEVATED POTASSIUM AND PHOS, CALLED AND HE ORDERED INSULIN, BICARB, D50, AND BUMEX. CONSULT CALLED IN FOR DIALYSIS PORT PLACEMENT. PT HAS BEEN NPO SINCE ARRIVAL.
[2020-08-04 10:54] LABS: Influenza A, PCR NEGATIVE (NEGATIVE); Influenza B, PCR NEGATIVE (NEGATIVE); Resp Syncytial Virus, PCR NEGATIVE (NEGATIVE); SARS-Cov-2 (COVID-19) PCR, MMC NEGATIVE (NEGATIVE)
--- NOTE | 2020-08-04 13:57 | NUR ---
PT TO SDS FROM PCU 5. PT ABLE TO AMBULATES FROM BED IN ROOM TO RESTROOM, INCREASED SOB c WHEEZING NOTED DURING EXERTION. PT SITS ON BED AND RECOVERS WITHIN MINUTE. NO WHEEZING NOTED ON AUSCULTATION. History, Chart, Medications and Allergies reviewed before start of procedure. Lungs clear T/O to Auscultation. Patient confirms NPO status and agrees with scheduled surgery. Patient reports completing Chlorhexadine shower X2 prior to admission to hospital. L PICC LINE FLUSED s DIFFICULTY. APPROX 200 CC OF URINE DRAINED FROM QUIÑONES CATH BAG.
--- NOTE | 2020-08-04 15:38 | NUR ---
08/04/20 1538 Onur Guerra PATIENT IS ON SCHEDULED ANTIBIOTICS. ARRIVED TO OR WITH QUIÑONES CATH
--- NOTE | 2020-08-04 19:20 | NUR ---
SHIFT SUMMARY PT A&Ox3; CALM AND COOPERATIVE WITH CARE. PT RESTING IN BED DURING SHIFT. UP TO BATHROOM WITH 1 PERSON ASSIST. PT SOB WITH EXERTIONS; EPISODE THIS EVENING OF AUDIBLE WHEEZING WHEN TRANSFERING TO OR BED. PT ON RA THIS AM, BACK FORM OR ON 2L O2 VIA NC, TITERATED BACK TO RA. PERMACATH PLACED TO LEFT CHEST WALL, C/D/I. ABD INCISION SLIGHTLY PINK, JAMAAL NOTED. PT HAVING MULTIPLE BOUTS OF LOOSE STOOL T/O SHIFT. QUIÑONES IN PLACE, PATENT AND DRAINING. DR ARMIJO NOTIFIED OF CRITICAL POTASSIUM LEVELS, ORDERS ENTERED; PLANS FOR DIALYSIS TOMORROW. CLARIFIED ORDERS FOR BUMEX T/O SHIFT. VSS. NO OTHER ACUTE CHAGNES NOTED. REPORT GIVEN TO ARMEN BRAGA.
--- NOTE | 2020-08-05 04:59 | NUR ---
SHIFT SUMMARY - PT UP X2 TO BRP WITH 2 PERSON SBA AND WALKER - PT STABLE WITH AMBULATION. PT HAD A LOOSE MUCOUS MIRANDA COLORED BM. QUIÑONES PUT OUT CLEAR YELLOW URINE. POWER GLIDE TO MICHELE DIDN'T DRAW THIS AM - FLUSHED EASILY. LAB CAME FOR DRAW. PT'S DIALYSIS PORT TO LEFT CHEST WALL HASN'T CHANGED FROM THE BEGINNING OF THE SHIFT - SCANT SANGUINOUS AMOUNT. PT SLEPT FOR APPX 7-8 HOURS TONIGHT WITH HOME CPAP IN PLACE - SATS WNL. CALL LIGHT WITHIN REACH. BED IN LOW POSITION. FLUIDS AT BEDSIDE. PAS ON.
[2020-08-05 05:10] LABS: Hematocrit 27.4 % (37.0-53.0); Hemoglobin 8.7 g/dL (13.5-17.5)
[2020-08-05 05:39] LABS: Magnesium, Blood 1.8 mg/dL (1.6-2.4)
[2020-08-05 05:51] LABS: Anion Gap 12 mmol/L (6-16); Blood Urea Nitrogen 93 mg/dL (8-24); Bun/Creatinine Ratio 16.3 (12.0-20.0); CO2, Blood 19 mmol/L (21-32); Calcium, Blood 7.8 mg/dL (8.5-10.1); Chloride, Blood 109 mmol/L (98-108); Creatinine, Blood 5.72 mg/dL (0.60-1.20); Glomerular Filtration Rate 10 (60-); Glucose, Blood 148 mg/dL (70-99); Phosphorus, Blood 7.9 mg/dL (2.5-4.9); Potassium, Blood 6.9 mmol/L (3.5-5.5); Sodium, Blood 140 mmol/L (136-145)
--- NOTE | 2020-08-05 06:27 | NUR ---
CRITICAL K+ 6.9 THIS AM - SPOKE TO DR. ARMIJO - HE REPORTED PT IS GOING TO DIALYSIS THIS AM - NO ORDERS RECEIVED.
--- NOTE | 2020-08-05 06:41 | NUR ---
DR. ARMIJO HERE - REPORTED TO CALL DOPE HOUSE OPERATOR HELPER - I SPOKE TO JARRELL DOPE HOUSE OPERATOR HELPER - AND HE REPORTED A 9 AM RUN TIME - RELAYED THIS INFORMATION TO DR. ARMIJO.
--- NOTE | 2020-08-05 14:51 | NUR ---
JAMAAL REMOVED FROM SURGICAL SITE TO ABD; 25 JAMAAL REMOVED. A SMALL SHALLOW OPENING NOTED, PLACED STERI STRIPS.
--- NOTE | 2020-08-05 18:28 | NUR ---
SHIFT SUMMARY PT A&Ox4; CALM AND COOPERATIVE WITH CARE. PT MORE ALERT T/O SHIFT. PT UP 1 PERSON ASSIST IN ROOM. PT DENIES PAIN, CHEST PAIN, NAUSEA, SOB, AND DIZZINESS. PT HAD DIALYSIS THIS AM; PERMACATH TO LEFT CHEST; C/D/I. PT ABS JAMAAL REMOVED PER ORDERS. BLE EDEMA; ENCOURAGED TO ELEVATED. PT CONTINUES WITH PO VANCO. VSS. NO OTHER ACUTE CHANGES NOTED DURING SHIFT. WILL CONTINUE TO MONITOR UNITL REPORT GIVEN TO ONCOMING RN.
[2020-08-06 04:39] LABS: Hematocrit 22.9 % (37.0-53.0); Hemoglobin 7.3 g/dL (13.5-17.5)
[2020-08-06 05:06] LABS: Albumin, Blood 1.9 g/dL (3.4-5.0); Anion Gap 8 mmol/L (6-16); Blood Urea Nitrogen 81 mg/dL (8-24); Bun/Creatinine Ratio 14.4 (12.0-20.0); CO2, Blood 23 mmol/L (21-32); Calcium, Blood 7.3 mg/dL (8.5-10.1); Chloride, Blood 108 mmol/L (98-108); Creatinine, Blood 5.62 mg/dL (0.60-1.20); Glomerular Filtration Rate 10 (60-); Glucose, Blood 101 mg/dL (70-99); Magnesium, Blood 1.7 mg/dL (1.6-2.4); Potassium, Blood 5.6 mmol/L (3.5-5.5); Sodium, Blood 139 mmol/L (136-145)
[2020-08-06 05:40] LABS: Phosphorus, Blood 8.5 mg/dL (2.5-4.9)
--- NOTE | 2020-08-06 06:39 | NUR ---
SHIFT SUMMARY NO ACUTE CHANGES THIS SHIFT. PT A&OX4. SP02>90% ON RA, PT USED CPAP TO SLEEP. PT IS SR. QUIÑONES CATHETER DRAINING TO GRAVITY. NO BM THIS SHIFT. PT REPOSITIONS SELF IN BED. PT DENIES PAIN. SCDS ON THIS SHIFT. PT USES CALL LIGHT APPROPRIATELY. PT SLEPT MOST OF SHIFT. CALL LIGHT IN REACH.
[2020-08-06 07:10] LABS: HBSAG SCREEN Negative (Negative); HEP A AB, IGM Negative (Negative); HEP B CORE AB, IGM Negative (Negative); HEP C VIRUS AB 0.1 (0.0-0.9)
--- NOTE | 2020-08-06 17:49 | NUR ---
SHIFT SUMMARY: PT ALERT AND ORIENTED X4. ON ROOM AIR SATING ABOVE 92%. TELE SHOWING NSR WITH HR 80'S. DENIES CHEST PAIN. DIALYSIS THIS AM. LEFT CHEST DIALYSIS PORT. PT COMPLAINS OF HICCUPS AND LACK OF SLEEP THE PREVIOUS NIGHT. DR. VILCHIS AWARE AND MELITONIN ORDERED FOR BEDTIME. QUIÑONES CATH IN PLACE DRAINING TO GRAVITY. UP IN CHAIR FOR MEALS. IN TO VISIT THIS AFTERNOON. TEARFUL IN ROOM. QUESTIONS AND CONCERNS ANSWERED. PT AND EXPRESSED GRATITUDE FOR TIME SPENT WITH THEM. SBA WITH WALKER AND GAIT BELT TO BATHROOM. IV'S SALINE LOCKED AND FLUSHING WELL. MIDLINE ABDOMEN SCAR HEALING STAGES. VITAL SIGNS STABLE. WILL CONTINUE TO MONITOR AND REPORT OFF.
[2020-08-07 04:17] LABS: Albumin, Blood 1.8 g/dL (3.4-5.0); Anion Gap 7 mmol/L (6-16); Blood Urea Nitrogen 67 mg/dL (8-24); Bun/Creatinine Ratio 12.8 (12.0-20.0); CO2, Blood 27 mmol/L (21-32); Calcium, Blood 7.2 mg/dL (8.5-10.1); Chloride, Blood 106 mmol/L (98-108); Creatinine, Blood 5.22 mg/dL (0.60-1.20); Glomerular Filtration Rate 11 (60-); Glucose, Blood 90 mg/dL (70-99); Magnesium, Blood 1.6 mg/dL (1.6-2.4); Phosphorus, Blood 7.2 mg/dL (2.5-4.9); Potassium, Blood 5.3 mmol/L (3.5-5.5); Sodium, Blood 140 mmol/L (136-145)
--- NOTE | 2020-08-07 05:39 | NUR ---
SHIFT SUMMARY NO ACUTE CHANGES THIS SHIFT. PT A&OX4. SP02>92% RA. PT DID NOT WANT TO WEAR CPAP WHILE SLEEPING THIS EVENING, REQUESTED TO WEAR 2L NC WHILE ASLEEP. TELEMETRY READS SINUS RHYTHM, HR 80'S. PT DENIES PAIN. QUIÑONES CATHETER DRAINING CLEAR YELLOW URINE TO GRAVITY. PT STATED HE WAS ABLE TO SLEEP MUCH BETTER THAN PREVIOUS NIGHT. PT IN ROOM RESTING NOW AFTER GETTING WARM BLANKET. CALL LIGHT IN REACH. WILL GIVE REPORT TO ONCOMING SHIFT.
[2020-08-07] MEDS ORDERED: VANCOCIN HCL125 MG PO ×2 (13:07)
--- NOTE | 2020-08-07 14:41 | NUR ---
DISCHARGE: PT ALERT AND ORIENTED X4. ON TELE SHOWING SR WITH HR 80'S. DENIES CHEST PAIN. ON ROOM AIR SATING ABOVE 92%. DIALYSIS TODAY. VITAL SIGNS STABLE. NO ACUTE CHANGES. POWERGLIDE AND QUIÑONES CATHETER REMOVED PER PROTOCOL. DISCHARGE INSTRUCTIONS REVIEWED AND QUESTIONS ANSWERED. PRESENT WITH INSTRUCTIONS. TAKEN TO VEHICLE VIA WHEELCHAR.
== END 2020-08-07 14:38 | disposition home or self-care (01) | DRG 674 ==
LOC: ER 19:26 → PCU 19:27 → ERHOLD 19:27 → PCU 08-04 02:51
PROVIDERS: Internal Medicine Nephrology; Nurse Practitioner Acute Care; Physician Assistant; Surgery; ADMIT Internal Medicine
PROC: 02HV33Z Insertion of Infusion Device into Superior Vena Cava, Percutaneous Approach (ICD-10-PCS; 2020-08-04)
PROC: B518ZZA Fluoroscopy of Superior Vena Cava, Guidance (ICD-10-PCS; 2020-08-04)
PROC: 5A1D70Z Performance of Urinary Filtration, Intermittent, Less than 6 Hours Per Day (ICD-10-PCS; 2020-08-04)
PROC: 0JH63XZ Insertion of Tunneled Vascular Access Device into Chest Subcutaneous Tissue and Fascia, Percutaneous Approach (ICD-10-PCS; principal; 2020-08-04 14:30)
PROC: 30233N1 Transfusion of Nonautologous Red Blood Cells into Peripheral Vein, Percutaneous Approach (ICD-10-PCS; 2020-08-07)
DX: N17.9 Acute kidney failure, unspecified (principal); E87.2 Acidosis; A04.72 Enterocolitis due to Clostridium difficile, not specified as recurrent; E87.5 Hyperkalemia; N18.4 Chronic kidney disease, stage 4 (severe); E55.9 Vitamin D deficiency, unspecified; D63.1 Anemia in chronic kidney disease; E78.5 Hyperlipidemia, unspecified; I48.0 Paroxysmal atrial fibrillation; D50.9 Iron deficiency anemia, unspecified; G47.33 Obstructive sleep apnea (adult) (pediatric); E83.39 Other disorders of phosphorus metabolism; I12.9 Hypertensive chronic kidney disease with stage 1 through stage 4 chronic kidney disease, or unspecified chronic kidney disease; N25.81 Secondary hyperparathyroidism of renal origin; M19.90 Unspecified osteoarthritis, unspecified site; Z98.890 Other specified postprocedural states; Z87.891 Personal history of nicotine dependence; Z79.899 Other long term (current) drug therapy; Z86.718 Personal history of other venous thrombosis and embolism; Z90.79 Acquired absence of other genital organ(s); Z90.49 Acquired absence of other specified parts of digestive tract; Z88.8 Allergy status to other drugs, medicaments and biological substances
CPT/HCPCS: 0241U; 36415; 36430; 51702; 51798; 71046; 76770; 77001; 80048; 80053; 80069; 80074; 82947; 83735; 84100; 84132; 85014; 85018; 85025; 86317; 86850; 86900; 86901; 86923; 87324; 87493; 93005; 93010; 94762; 96374-59; 96375; 96375-59; 96376; 99285-25; A9270; C1750; C1751; C1894; G0378; J0881; J1100; J1644; J1815; J2250; J2370; J2405; J2704; J2997; J3010; J7030; P9016

== ENCOUNTER 2020-08-10 13:28 | Emergency (ER) | payer MEDICARE, OTHER ==
[~2020-08-10] VITALS: Ht 182.9 cm; Wt 104.3 kg
[~2020-08-10 13:28] MED LIST changes: +VANCOCIN HCL125 MG PO
[2020-08-10 15:50] LABS: Calcium, Ionized (POC) 0.96 mmol/L (1.10-1.46); Chloride (POC) 99 mmol/L (98-108); Glucose (ISTAT POC) 102 mg/dL (70-99); Hemoglobin (POC) 8.8 g/dL (13.5-17.5); Potassium (POC) 5.1 mmol/L (3.5-5.5); Sodium (POC) 136 mmol/L (135-148); Total CO2 (POC) 31 mmol/L (21-32)
== END 2020-08-10 17:02 | disposition home or self-care (01) ==
LOC: ER 13:28
PROVIDERS: Emergency Medicine
DX: I12.0 Hypertensive chronic kidney disease with stage 5 chronic kidney disease or end stage renal disease (principal); N18.6 End stage renal disease; E78.5 Hyperlipidemia, unspecified; Z79.899 Other long term (current) drug therapy; Z88.8 Allergy status to other drugs, medicaments and biological substances; Z86.718 Personal history of other venous thrombosis and embolism; Z87.891 Personal history of nicotine dependence
CPT/HCPCS: 36415; 71045; 80047; 85014; 99284; A9270

== ENCOUNTER 2020-08-18 19:52 | Emergency (ER) | payer MEDICARE, OTHER ==
[~2020-08-18] VITALS: Ht 182.9 cm; Wt 95.2 kg
[2020-08-18 20:40] LABS: BASOPHILS ABSOLUTE AUTO 0.03 K/mm3 (0.00-0.23); BASOPHILS PERCENT AUTO 0 % (0-2); EOSINOPHILS ABSOLUTE AUTO 0.48 K/mm3 (0.00-0.68); EOSINOPHILS PERCENT AUTO 7 % (0-6); Hematocrit 25.9 % (37.0-53.0); Hemoglobin 8.2 g/dL (13.5-17.5); IMMATURE GRAN ABSOLUTE AUTO 0.02 K/mm3 (0.00-0.10); IMMATURE GRAN PERCENT AUTO 0 % (0-1); LYMPHOCYTES PERCENT AUTO 13 % (21-46); MONOCYTES ABSOLUTE AUTO 0.99 K/mm3 (0.16-1.47); MONOCYTES PERCENT AUTO 15 % (4-13); Mean Corpuscular HGB Conc 31.7 g/dL (31.5-36.5); Mean Corpuscular Volume 95 fL (80-100); Mean Platelet Volume 10.5 fL (9.1-12.4); NEUTROPHILS ABSOLUTE AUTO 4.42 K/mm3 (1.96-9.15); NEUTROPHILS PERCENT AUTO 65 % (41-73); Platelet Count 186 K/mm3 (150-400); RDW Coefficient Variation 16.3 % (11.7-14.2); RDW Standard Deviation 57.5 fL (35.1-46.3); Red Blood Cell Count 2.73 M/mm3 (4.30-5.90); White Blood Cell Count 6.84 K/mm3 (4.00-11.30)
[2020-08-18 20:57] LABS: Albumin/Globulin Ratio 0.5 (0.8-1.8); Bilirubin, Total 0.4 mg/dL (0.1-1.0); Bun/Creatinine Ratio 8.5 (12.0-20.0); Creatinine, Blood 6.1 mg/dL (0.60-1.20); Globulin, Blood 4.2 g/dL (2.2-4.0); Potassium, Blood 5.2 mmol/L (3.5-5.5); Total Protein, Blood 6.2 g/dL (6.4-8.2)
[2020-08-19] MEDS ORDERED: AMOX-CLAV 500-1 EAC1 PO (01:11)
== END 2020-08-19 01:26 | disposition home or self-care (01) ==
LOC: ER 19:52
PROVIDERS: Emergency Medicine
DX: J18.9 Pneumonia, unspecified organism (principal); I10 Essential (primary) hypertension; E78.5 Hyperlipidemia, unspecified; Z86.718 Personal history of other venous thrombosis and embolism; Z79.899 Other long term (current) drug therapy; Z87.891 Personal history of nicotine dependence; J47.9 Bronchiectasis, uncomplicated; N26.1 Atrophy of kidney (terminal); N62 Hypertrophy of breast
CPT/HCPCS: 36415; 71046; 71250; 80053; 84145; 85025; 99283; A9270

== ENCOUNTER → 2020-08-31 | Outpatient (CLI) | payer MEDICARE, OTHER ==
[~2020-08-31] MED LIST changes: +AMOX-CLAV 500-1 EAC1 PO; +Acetaminophen650 M1 PO; +ONDA4ODT MM; +Vancocin HCl125 MG
[2020-08-31 20:09] LABS: Hematocrit 19.4 % (37.0-53.0)
== END | disposition home or self-care (01) ==
LOC: LAB SHORT 18:42 → LAB 18:42
PROVIDERS: Internal Medicine Nephrology
DX: N18.6 End stage renal disease (principal)
CPT/HCPCS: 85014; 85018

== ENCOUNTER 2020-09-01 11:03 | Observation (INO) | payer MEDICARE, OTHER ==
[~2020-09-01] VITALS: Ht 182.9 cm; Wt 96.7 kg
[~2020-09-01 11:03] MED LIST changes: -Acetaminophen650 M1 PO; -ONDA4ODT MM; -Vancocin HCl125 MG
[2020-09-01 12:24] LABS: BASOPHILS ABSOLUTE AUTO 0.02 K/mm3 (0.00-0.23); BASOPHILS PERCENT AUTO 0 % (0-2); EOSINOPHILS ABSOLUTE AUTO 0.51 K/mm3 (0.00-0.68); EOSINOPHILS PERCENT AUTO 7 % (0-6); Hematocrit 24.3 % (37.0-53.0); Hemoglobin 6.2 g/dL (13.5-17.5); IMMATURE GRAN ABSOLUTE AUTO 0.04 K/mm3 (0.00-0.10); IMMATURE GRAN PERCENT AUTO 1 % (0-1); LYMPHOCYTES ABSOLUTE AUTO 0.72 K/mm3 (0.84-5.20); LYMPHOCYTES PERCENT AUTO 10 % (21-46); MONOCYTES ABSOLUTE AUTO 0.81 K/mm3 (0.16-1.47); MONOCYTES PERCENT AUTO 12 % (4-13); Mean Corpuscular HGB 29.5 pg (26.0-34.0); Mean Corpuscular HGB Conc 25.5 g/dL (31.5-36.5); Mean Corpuscular Volume 116 fL (80-100); Mean Platelet Volume 11.9 fL (9.1-12.4); NEUTROPHILS ABSOLUTE AUTO 4.82 K/mm3 (1.96-9.15); NEUTROPHILS PERCENT AUTO 70 % (41-73); Platelet Count 145 K/mm3 (150-400); RDW Standard Deviation 71.9 fL (35.1-46.3); White Blood Cell Count 6.92 K/mm3 (4.00-11.30)
[2020-09-01 12:43] LABS: Albumin, Blood 1.8 g/dL (3.4-5.0); Albumin/Globulin Ratio 0.4 (0.8-1.8); Bilirubin, Total 0.4 mg/dL (0.1-1.0); Bun/Creatinine Ratio 4.7 (12.0-20.0); Calcium, Blood 7.9 mg/dL (8.5-10.1); Creatinine, Blood 5.1 mg/dL (0.60-1.20); Globulin, Blood 4.2 g/dL (2.2-4.0); Potassium, Blood 3.7 mmol/L (3.5-5.5)
[2020-09-01 13:48] LABS: Percent Saturation 22.4 % (20.0-50.0)
--- NOTE | 2020-09-01 18:59 | NUR ---
SHIFT SUMMARY: PATIENT ADMIT FROM ED THIS SHIFT. PT A&O; CALM AND COOEPRATIVE WITH CARE. NO C/O PAIN SINCE ARRIVAL ON MEDICAL. DIALYSIS PATIENT; NEW PERMACATH PLACED TO R CHEST PRIOR TO ARRIVAL ON MEDICAL; OLD PERMACATH REMOVED FROM L CHEST; STERI-STRIPS IN PLACE; SITE C/D/I. ONE UNIT PRBCS TRANSFUSING THIS SHIFT; ADDITIONAL UNIT PLANNED WITH DIALYSIS 09/02. NEPHROLOGY (DR ARMIJO) FOLLOWING. REPORT GIVEN TO ONCOMING RN.
[2020-09-02 05:00] LABS: Hematocrit 21.2 % (37.0-53.0); Hemoglobin 6.7 g/dL (13.5-17.5)
[2020-09-02] MEDS ORDERED: Acetaminophen650 M1 PO (15:21)
[2020-09-02] MEDS ORDERED: ONDA4ODT MM (15:22)
--- NOTE | 2020-09-02 16:13 | NUR ---
DISCHARGE NOTE PT ABLE TO MAKE NEEDS KNONW. PT VERY ANXIOUS TO GO HOME AFTER COMING BACK TO ROOM FROM DIALYSIS. PT HAD O2 EVAL AND GIVEN ORDERS FOR 1L OF OXYGEN WHILE HOME [facility] CAME AND GAVE PT O2 CANASTER AND CARD TO CALL WHEN HE GETS HOME. PT STATED HE DID NOT NEED OXYGEN AND WOULD NOT BE USING IT. WENT OVER DC PACKET WITH PATIENT AND HIS . PT DID NOT HAVE ANY QUESTIONS. TOOK OUT IV. COMPUTER AIDED DESIGN DESIGNER TOOK PATIENT TO EXIT VIA WHEELCHAIR.
== END 2020-09-02 15:42 | disposition home or self-care (01) ==
LOC: ER 11:03 → MEDS 11:04
PROVIDERS: Emergency Medicine; Nurse Practitioner Acute Care; ADMIT Hospitalist
DX: N17.9 Acute kidney failure, unspecified (principal); D64.9 Anemia, unspecified; I12.0 Hypertensive chronic kidney disease with stage 5 chronic kidney disease or end stage renal disease; N18.6 End stage renal disease; D50.9 Iron deficiency anemia, unspecified; I48.0 Paroxysmal atrial fibrillation; G47.33 Obstructive sleep apnea (adult) (pediatric); T82.41XA Breakdown (mechanical) of vascular dialysis catheter, initial encounter; Y84.9 Medical procedure, unspecified as the cause of abnormal reaction of the patient, or of later complication, without mention of misadventure at the time of the procedure; Z99.2 Dependence on renal dialysis; Z88.8 Allergy status to other drugs, medicaments and biological substances; Z87.891 Personal history of nicotine dependence; Z86.718 Personal history of other venous thrombosis and embolism
CPT/HCPCS: 36415; 36430; 36558; 36589; 76937; 77001; 80053; 82272; 82607; 82728; 82746; 83540; 83550; 85014; 85018; 85025; 86850; 86900; 86901; 86923; 93005; 93010; 94761; 94762; 97112; 97162; 99152; 99285-25; A9270; C1750; C1769; C1894; G0257; G0378; J1644; J2250; J3010; J7040; P9016

== ENCOUNTER → 2020-10-07 | Outpatient (CLI) | payer MEDICARE, OTHER ==
[~2020-10-07] MED LIST changes: +Acetaminophen650 M1 PO; +ONDA4ODT MM; +Vancocin HCl125 MG
== END ==
LOC: LAB 10:20 → LAB SHORT 10:20
DX: R05 Cough (principal)
CPT/HCPCS: 87015; 87116; 87206

== ENCOUNTER 2020-10-08 02:08 | Day surgery (SDC) | payer MEDICARE, OTHER ==
[~2020-10-08 02:08] MED LIST changes: -Vancocin HCl125 MG
[2020-10-08] MEDS ORDERED: Vancocin HCl125 MG (15:26)
== END 2020-10-08 15:46 | disposition home or self-care (01) ==
LOC: ATC 02:08
DX: N18.6 End stage renal disease (principal); D64.9 Anemia, unspecified
CPT/HCPCS: 36415; 36430; 86850; 86900; 86901; 86923; J7050; P9016

== ENCOUNTER → 2020-10-08 | Outpatient (CLI) | payer MEDICARE, OTHER | END | disposition home or self-care (01) | LOC: LAB 13:39 → LAB SHORT 13:39 | DX: R05 Cough (principal) | CPT/HCPCS: 87015; 87116; 87206 ==

== ENCOUNTER 2020-11-02 15:30 | Emergency (ER) | payer MEDICARE, OTHER ==
[~2020-11-02] VITALS: Ht 180.3 cm; Wt 90.7 kg
[~2020-11-02 15:30] MED LIST changes: +Vancocin HCl125 MG
[2020-11-02 16:53] LABS: Albumin/Globulin Ratio 0.5 (0.8-1.8); Bilirubin, Total 0.4 mg/dL (0.1-1.0); Bun/Creatinine Ratio 8.8 (12.0-20.0); Calcium, Blood 8.4 mg/dL (8.5-10.1); Creatinine, Blood 2.96 mg/dL (0.60-1.20); Globulin, Blood 4.2 g/dL (2.2-4.0); Potassium, Blood 3.4 mmol/L (3.5-5.5); Total Protein, Blood 6.2 g/dL (6.4-8.2)
== END 2020-11-02 21:45 | disposition home or self-care (01) ==
LOC: ER 15:30
PROVIDERS: Physician Assistant
DX: D64.9 Anemia, unspecified (principal); E87.6 Hypokalemia; I10 Essential (primary) hypertension; R05 Cough; Z88.8 Allergy status to other drugs, medicaments and biological substances
CPT/HCPCS: 36415; 36430; 80053; 84484; 86850; 86900; 86901; 86923; 93005; 93010; 99283-25; J7030; P9016

== ENCOUNTER 2020-12-15 18:50 | Emergency (ER) | payer MEDICARE, OTHER ==
[~2020-12-15] VITALS: Ht 182.9 cm; Wt 90.7 kg
[2020-12-15 19:51] LABS: BASOPHILS ABSOLUTE AUTO 0.02 K/mm3 (0.00-0.23); BASOPHILS PERCENT AUTO 0 % (0-2); EOSINOPHILS ABSOLUTE AUTO 0.03 K/mm3 (0.00-0.68); EOSINOPHILS PERCENT AUTO 0 % (0-6); Hemoglobin 8.5 g/dL (13.5-17.5); IMMATURE GRAN ABSOLUTE AUTO 0.11 K/mm3 (0.00-0.10); IMMATURE GRAN PERCENT AUTO 1 % (0-1); LYMPHOCYTES ABSOLUTE AUTO 0.76 K/mm3 (0.84-5.20); LYMPHOCYTES PERCENT AUTO 6 % (21-46); MONOCYTES ABSOLUTE AUTO 1.31 K/mm3 (0.16-1.47); MONOCYTES PERCENT AUTO 10 % (4-13); Mean Corpuscular HGB Conc 32.7 g/dL (31.5-36.5); Mean Corpuscular Volume 95 fL (80-100); Mean Platelet Volume 10.1 fL (9.1-12.4); NEUTROPHILS ABSOLUTE AUTO 11.07 K/mm3 (1.96-9.15); NEUTROPHILS PERCENT AUTO 83 % (41-73); Platelet Count 160 K/mm3 (150-400); RDW Coefficient Variation 15.9 % (11.7-14.2); Red Blood Cell Count 2.74 M/mm3 (4.30-5.90)
[2020-12-15 19:59] LABS: Source, Urine Clean Catch
[2020-12-15 20:02] LABS: Appearance, Urine Clear (Clear); Bilirubin, Urine Neg (Neg); Blood, Urine 1+ (Neg); Color, Urine Yellow (P-Yellow); Glucose Qualitative, Urine 3+ (Neg); Ketones, Urine 1+ (Neg); Leukocyte Esterase, Urine 1+ (Neg); Nitrite, Urine Neg (Neg); Protein, Urine 4+ (Neg); Urobilinogen, Urine NORM (Normal)
[2020-12-15 20:09] LABS: Bacteria Mod /hpf; Red Blood Cells, Urine 0-2 /hpf (0-2); Squamous Epithelial Cells Few /hpf (Few)
[2020-12-15 20:10] LABS: Albumin, Blood 2.2 g/dL (3.4-5.0); Albumin/Globulin Ratio 0.5 (0.8-1.8); Bilirubin, Total 0.6 mg/dL (0.1-1.0); Bun/Creatinine Ratio 9.5 (12.0-20.0); Calcium, Blood 8.9 mg/dL (8.5-10.1); Creatinine, Blood 4.74 mg/dL (0.60-1.20); Globulin, Blood 4.4 g/dL (2.2-4.0); Potassium, Blood 3.4 mmol/L (3.5-5.5); Total Protein, Blood 6.6 g/dL (6.4-8.2)
[2020-12-15] MEDS ORDERED: CEPH500 PO (22:00)
== END 2020-12-15 23:28 | disposition home or self-care (01) ==
LOC: ER 18:50
PROVIDERS: Physician Assistant
DX: N39.0 Urinary tract infection, site not specified (principal); R41.82 Altered mental status, unspecified; I10 Essential (primary) hypertension; Z99.2 Dependence on renal dialysis; Z88.8 Allergy status to other drugs, medicaments and biological substances; Z87.891 Personal history of nicotine dependence; Z79.899 Other long term (current) drug therapy
CPT/HCPCS: 36415; 51701; 70450; 80053; 81001; 82947; 83605; 83735; 85025; 87086; 93005; 93010; 96365; 99285-25; A9270; J0690

== ENCOUNTER 2021-01-05 18:29 | Inpatient (IN) | payer MEDICARE, OTHER ==
[~2021-01-05] VITALS: Ht 182.9 cm; Wt 92.0 kg
[~2021-01-05 18:29] MED LIST changes: -CARVEDILOL12.5 MG PO; -CENTRUM SILVER1 EAC2 PO
[2021-01-05 21:02] LABS: BASOPHILS ABSOLUTE AUTO 0.02 K/mm3 (0.00-0.23); BASOPHILS PERCENT AUTO 0 % (0-2); EOSINOPHILS ABSOLUTE AUTO 0.01 K/mm3 (0.00-0.68); EOSINOPHILS PERCENT AUTO 0 % (0-6); Hematocrit 26.2 % (37.0-53.0); Hemoglobin 8.2 g/dL (13.5-17.5); IMMATURE GRAN ABSOLUTE AUTO 0.19 K/mm3 (0.00-0.10); IMMATURE GRAN PERCENT AUTO 1 % (0-1); LYMPHOCYTES ABSOLUTE AUTO 0.55 K/mm3 (0.84-5.20); LYMPHOCYTES PERCENT AUTO 4 % (21-46); MONOCYTES ABSOLUTE AUTO 1.09 K/mm3 (0.16-1.47); MONOCYTES PERCENT AUTO 8 % (4-13); Mean Corpuscular HGB 29.9 pg (26.0-34.0); Mean Corpuscular HGB Conc 31.3 g/dL (31.5-36.5); Mean Corpuscular Volume 96 fL (80-100); Mean Platelet Volume 10.4 fL (9.1-12.4); NEUTROPHILS ABSOLUTE AUTO 12.26 K/mm3 (1.96-9.15); NEUTROPHILS PERCENT AUTO 87 % (41-73); Platelet Count 197 K/mm3 (150-400); RDW Coefficient Variation 16.9 % (11.7-14.2); RDW Standard Deviation 59.2 fL (35.1-46.3); Red Blood Cell Count 2.74 M/mm3 (4.30-5.90); White Blood Cell Count 14.12 K/mm3 (4.00-11.30)
[2021-01-05 21:21] LABS: Albumin, Blood 2.2 g/dL (3.4-5.0); Albumin/Globulin Ratio 0.5 (0.8-1.8); Bilirubin, Total 0.4 mg/dL (0.1-1.0); Bun/Creatinine Ratio 13.2 (12.0-20.0); Creatinine, Blood 4.85 mg/dL (0.60-1.20); Globulin, Blood 4.7 g/dL (2.2-4.0); Potassium, Blood 3.4 mmol/L (3.5-5.5); Total Protein, Blood 6.9 g/dL (6.4-8.2)
[2021-01-05 23:11] LABS: International Normalized Ratio 1.22
--- NOTE | 2021-01-06 01:30 | NUR ---
RECEIVED REPORT FROM MAGEN ARANDA RN. PT TRANSPORTED TO MEDICAL FLOOR VIA GURNEY, TRANSFERRED TO BED VIA SLIDE-SHEET AND ASSIST OF 3. VS TAKEN, WNL. ORIENTED TO ROOM/UNIT. PT NPO. NO ACUTE NEEDS ASSESSED AT THIS TIME. CALL LIGHT, POSSESSIONS IN REACH, BED IN LOW AND LOCKED POSITION WITH ALARMS ON.
[2021-01-06 05:39] LABS: BASOPHILS ABSOLUTE AUTO 0.02 K/mm3 (0.00-0.23); BASOPHILS PERCENT AUTO 0 % (0-2); EOSINOPHILS ABSOLUTE AUTO 0.02 K/mm3 (0.00-0.68); EOSINOPHILS PERCENT AUTO 0 % (0-6); Hematocrit 20.9 % (37.0-53.0); Hemoglobin 6.4 g/dL (13.5-17.5); IMMATURE GRAN ABSOLUTE AUTO 0.08 K/mm3 (0.00-0.10); IMMATURE GRAN PERCENT AUTO 1 % (0-1); LYMPHOCYTES ABSOLUTE AUTO 0.78 K/mm3 (0.84-5.20); LYMPHOCYTES PERCENT AUTO 8 % (21-46); MONOCYTES ABSOLUTE AUTO 0.74 K/mm3 (0.16-1.47); MONOCYTES PERCENT AUTO 8 % (4-13); Mean Corpuscular HGB 29.5 pg (26.0-34.0); Mean Corpuscular HGB Conc 30.6 g/dL (31.5-36.5); Mean Corpuscular Volume 96 fL (80-100); Mean Platelet Volume 10.8 fL (9.1-12.4); NEUTROPHILS ABSOLUTE AUTO 7.86 K/mm3 (1.96-9.15); NEUTROPHILS PERCENT AUTO 83 % (41-73); Platelet Count 162 K/mm3 (150-400); RDW Standard Deviation 59.8 fL (35.1-46.3); Red Blood Cell Count 2.17 M/mm3 (4.30-5.90)
[2021-01-06 06:06] LABS: Albumin, Blood 1.9 g/dL (3.4-5.0); Albumin/Globulin Ratio 0.5 (0.8-1.8); Bilirubin, Total 0.4 mg/dL (0.1-1.0); Bun/Creatinine Ratio 11.8 (12.0-20.0); Calcium, Blood 8.7 mg/dL (8.5-10.1); Creatinine, Blood 5.24 mg/dL (0.60-1.20); Globulin, Blood 4.1 g/dL (2.2-4.0); Potassium, Blood 3.6 mmol/L (3.5-5.5)
--- NOTE | 2021-01-06 06:30 | NUR ---
DIRECTOR OF STUDENT SERVICES SUMMARY PT ASLEEP, IN NAD. APPEARED TO SLEEP WELL T/O NIGHT. VS REVIEWED,WNL. NO C/O PAIN. SPOKE TO DR. BUSTAMANTE REGARDING PT'S H&H, WHO DIRECTED THIS RN TO CONTACT DR. ARMIJO. DR. ARMIJO INFORMED OF PT'S H&H, ORDERS RECEIVED. NO OTHER ACUTE NEEDS ASSESSED AT THIS TIME. CALL LIGHT, POSSESSIONS IN REACH, BED IN LOW AND LOCKED POSITION WITH ALARMS ON. WILL CONTINUE TO PROVIDE CARE UNTIL REPORT GIVEN TO ONCOMING RN.
--- NOTE | 2021-01-06 18:29 | NUR ---
PT TO DIALYSIS THIS MORNING, RECEIVED TWO UNITS PRBC THERE. APPEARS TO HAVE TOLERATED WELL. UP TO BEDSIDE CHAIR FOR A FEW HOURS THIS AFTERNOON WHILE HIS WAS VISITING. NO ACUTE CHANGES NOTED THIS SHIFT, WILL CONTINUE TO MONITOR AND REPORT TO ONCOMING RN
--- NOTE | 2021-01-07 04:46 | NUR ---
YOUTH MANAGER SUMMARY NO ACUTE CHANGES THIS SHIFT. PT [id number] AND PLEASANT. DENIES PAIN, SOB, N/V. CONTINUES ON IV ZOSYN. SET UP WITH HOME CPAP FOR BEDTIME. VSS, WILL CONTINUE TO MONITOR.
[2021-01-07 05:34] LABS: BASOPHILS ABSOLUTE AUTO 0.02 K/mm3 (0.00-0.23); BASOPHILS PERCENT AUTO 0 % (0-2); EOSINOPHILS ABSOLUTE AUTO 0.13 K/mm3 (0.00-0.68); EOSINOPHILS PERCENT AUTO 2 % (0-6); Hematocrit 23.2 % (37.0-53.0); Hemoglobin 7.2 g/dL (13.5-17.5); IMMATURE GRAN ABSOLUTE AUTO 0.04 K/mm3 (0.00-0.10); IMMATURE GRAN PERCENT AUTO 1 % (0-1); LYMPHOCYTES PERCENT AUTO 10 % (21-46); MONOCYTES ABSOLUTE AUTO 0.52 K/mm3 (0.16-1.47); MONOCYTES PERCENT AUTO 6 % (4-13); Mean Corpuscular HGB 29.6 pg (26.0-34.0); Mean Corpuscular Volume 96 fL (80-100); Mean Platelet Volume 10.6 fL (9.1-12.4); NEUTROPHILS ABSOLUTE AUTO 6.87 K/mm3 (1.96-9.15); NEUTROPHILS PERCENT AUTO 82 % (41-73); Platelet Count 160 K/mm3 (150-400); RDW Coefficient Variation 17.4 % (11.7-14.2); RDW Standard Deviation 61.4 fL (35.1-46.3); Red Blood Cell Count 2.43 M/mm3 (4.30-5.90); White Blood Cell Count 8.38 K/mm3 (4.00-11.30)
[2021-01-07 06:00] LABS: Albumin, Blood 1.8 g/dL (3.4-5.0); Anion Gap 7 mmol/L (6-16); Blood Urea Nitrogen 55 mg/dL (8-24); Bun/Creatinine Ratio 11.8 (12.0-20.0); CO2, Blood 31 mmol/L (21-32); Calcium, Blood 8.4 mg/dL (8.5-10.1); Chloride, Blood 100 mmol/L (98-108); Creatinine, Blood 4.67 mg/dL (0.60-1.20); Glomerular Filtration Rate 12 (60-); Glucose, Blood 93 mg/dL (70-99); Magnesium, Blood 2.1 mg/dL (1.6-2.4); Phosphorus, Blood 4.4 mg/dL (2.5-4.9); Potassium, Blood 3.7 mmol/L (3.5-5.5); Sodium, Blood 138 mmol/L (136-145)
[2021-01-07 12:46] LABS: Vancomycin, Random 19.3 ug/mL
--- NOTE | 2021-01-07 15:41 | NUR ---
Spiritual care visit conducted. Patient is lying in bed and resting but responds occationally in our conversation. Patient's spouse, Divina is bedside. Divina tells me about their life as "RVers" travelling around since 1998 for pleasure and then they volunteered for [email or web address] for several years. She explains about the [place] and how residents have become their family and support. She explains about the infection in a "blot clot" and the concerns that go with that condition. I reinforce their helpful attitudes and practices and provide a calming presence and prayer. Patient and Mode repond well and show signs of being encouraged in their yuliana. I will continue to remain available to patient and family.
--- NOTE | 2021-01-07 16:58 | NUR ---
SHIFT SUMMARY PATIENT ALERT AND ORIENTED THIS SHIFT. PATIENT IS SBA FROM BED TO CHAIR. NO ACUTE CHANGES THIS SHIFT. PATIENT UP IN CHAIR FOR BREAKFAST AND LUNCH. PATIENT IN BED THIS AFTERNOON FOR NAP. PATIENT CURRENTLY RESTING IN BED WITH AT BEDSIDE.
--- NOTE | 2021-01-07 22:59 | NUR ---
NOTIFIED PHYSICIAN PT HAS BEEN VERY CONFUSED TONIGHT WHICH IS A COMPLETE CHANGE FROM THIS MORNING WHEN PT WAS AAOX4. DAY SHIFT RN REPORTED THAT PT STARTED HAVING "OWNING BEHAVIOR" STARTING LATE THIS AFTERNOON. PT ABLE TO TELL ME HIS NAME AND YEAR BUT WAS UNSURE WHERE HE WAS OR WHY. PT ALSO FEBRILE WITH TEMP 102 AND THEN DOWN TO 100.3 AFTER TYLENOL GIVEN. NOTIFIED DR AYALA REGARDING PT'S CHANGE IN STATUS. DR AYALA STATED THAT HE HAD ADMITTED PT INITIALLY AND WAS FAMILIAR WITH HIM. STATED TO CONTINUE TO MONITOR PT AT THIS POINT AND NOTIFIY HOSPITALIST IF PT GOT WORSE. WILL CONTINUE TO MONITOR.
--- NOTE | 2021-01-08 05:18 | NUR ---
LOG CARRIER OPERATOR SUMMARY PT HAS HAD DRASTIC CHANGE IN MENTATION. PT IS AAOX1, FOLLOWS DIRECTION BUT DOES NOT KNOW WHERE HE IS OR WHY HE'S HERE. YESTERDAY PT WAS AAOX4. FEBRILE AT START OF SHIFT WITH TEMP OF 102, NOW 99.3 AFTER TYLENOL TREATMENT. PT REQUIRED 2L O2 WHILE AWAKE DUE TO SATTING 88-89% ON RA. PT ABLE TO MAINTAIN O2 SATS WHILE SLEEPING WITH CPAP. WHEEL WORKER HOSPITALIST DR AYALA NOTIFIED OF CHANGES, SEE PREVIOUS NOTE. PT HAS SLEPT THROUGH MOST OF THE NIGHT. PT HAS NOT HAD A BM TONIGHT SO UNABLE TO COLLECT SPECIMEN FOR C. DIFF CHECK. WILL CONTINUE TO MONITOR.
[2021-01-08 05:56] LABS: BASOPHILS ABSOLUTE AUTO 0.03 K/mm3 (0.00-0.23); BASOPHILS PERCENT AUTO 0 % (0-2); EOSINOPHILS ABSOLUTE AUTO 0.02 K/mm3 (0.00-0.68); EOSINOPHILS PERCENT AUTO 0 % (0-6); Hematocrit 26.7 % (37.0-53.0); Hemoglobin 8.1 g/dL (13.5-17.5); IMMATURE GRAN PERCENT AUTO 2 % (0-1); LYMPHOCYTES ABSOLUTE AUTO 0.67 K/mm3 (0.84-5.20); LYMPHOCYTES PERCENT AUTO 4 % (21-46); MONOCYTES PERCENT AUTO 6 % (4-13); Mean Corpuscular HGB 29.6 pg (26.0-34.0); Mean Corpuscular HGB Conc 30.3 g/dL (31.5-36.5); Mean Corpuscular Volume 97 fL (80-100); Mean Platelet Volume 10.4 fL (9.1-12.4); NEUTROPHILS ABSOLUTE AUTO 14.97 K/mm3 (1.96-9.15); NEUTROPHILS PERCENT AUTO 88 % (41-73); Platelet Count 205 K/mm3 (150-400); RDW Coefficient Variation 16.8 % (11.7-14.2); RDW Standard Deviation 60.3 fL (35.1-46.3); Red Blood Cell Count 2.74 M/mm3 (4.30-5.90); White Blood Cell Count 17.09 K/mm3 (4.00-11.30)
[2021-01-08 06:25] LABS: Albumin, Blood 1.8 g/dL (3.4-5.0); Anion Gap 10 mmol/L (6-16); Blood Urea Nitrogen 63 mg/dL (8-24); Bun/Creatinine Ratio 10.5 (12.0-20.0); CO2, Blood 27 mmol/L (21-32); Calcium, Blood 8.9 mg/dL (8.5-10.1); Chloride, Blood 100 mmol/L (98-108); Creatinine, Blood 5.99 mg/dL (0.60-1.20); Glomerular Filtration Rate 9 (60-); Glucose, Blood 95 mg/dL (70-99); Magnesium, Blood 1.9 mg/dL (1.6-2.4); Phosphorus, Blood 4.8 mg/dL (2.5-4.9); Potassium, Blood 4.1 mmol/L (3.5-5.5); Sodium, Blood 137 mmol/L (136-145)
[2021-01-08 14:30] LABS: C DIFFICILE DNA NEGATIVE (Negative)
--- NOTE | 2021-01-08 17:06 | NUR ---
SHIFT SUMMARY PATIENT A/O X2 THIS AM. PATIENT CALM AND COOPERATIVE WITH CARE. PATIENT WAS LETHARGIC EARLY THIS SHIFT. PATIENT DOWN FOR DIALYSIS AT 0900. PATIENT BACK FROM DIALYSIS AND MORE ALERT. PATIENT UP INDEPENDENTLY AT THIS TIME, SAT UP IN CHAIR AND RESPONDED APPROPRIATELY TO QUESTIONS. PATIENT BACK TO BED EARLY AFTERNOON. PATIENT CONTINUES TO RESPOND APPROPRIATELY, YET RESTING IN BED WHEN NOT INTERACTING WITH SPOUSE OR STAFF. PATIENT'S SPOUSE IN THE ROOM THROUGHOUT THE AFTERNOON. PATIENT CURRENTLY LYING IN BED SLEEPING.
--- NOTE | 2021-01-09 04:38 | NUR ---
SHIFT SUMMARY ADMITTED FOR SEPSIS. FULL CODE. 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 PLAN MAY BE TO DC HOME W/HH IN 1-2 DAYS. HE LIVES WITH HIS . IV ANTIBIOTICS ARE SCHEDULED. ESRD PT, DIALYSIS IS SCHEDULED. DR ARMIJO IS RENAL CONSULT. CHRONIC ANEMIA, WE ARE MONITORING HIS H&H. WBC'S HAVE BEEN ELEVATED WELL. PERMACATH FOR DIALYSIS LOCATED IN RT CHEST WALL. HE USES A CPAP AT NIGHT. NO FEVER THIS SHIFT. HX OF DEMENTIA. IT WAS REPORTED TO ME THAT HIS MENTATION HAS DECLINED.
[2021-01-09 05:48] LABS: Hematocrit 24.5 % (37.0-53.0); Hemoglobin 7.5 g/dL (13.5-17.5); Mean Corpuscular HGB 29.8 pg (26.0-34.0); Mean Corpuscular HGB Conc 30.6 g/dL (31.5-36.5); Mean Corpuscular Volume 97 fL (80-100); Mean Platelet Volume 10.4 fL (9.1-12.4); Platelet Count 177 K/mm3 (150-400); RDW Coefficient Variation 16.7 % (11.7-14.2); RDW Standard Deviation 59.7 fL (35.1-46.3); Red Blood Cell Count 2.52 M/mm3 (4.30-5.90); White Blood Cell Count 9.21 K/mm3 (4.00-11.30)
[2021-01-09 06:12] LABS: Albumin, Blood 1.7 g/dL (3.4-5.0); Anion Gap 7 mmol/L (6-16); Blood Urea Nitrogen 51 mg/dL (8-24); Bun/Creatinine Ratio 10.3 (12.0-20.0); CO2, Blood 30 mmol/L (21-32); Calcium, Blood 8.7 mg/dL (8.5-10.1); Chloride, Blood 101 mmol/L (98-108); Creatinine, Blood 4.93 mg/dL (0.60-1.20); Glomerular Filtration Rate 11 (60-); Glucose, Blood 97 mg/dL (70-99); Phosphorus, Blood 3.8 mg/dL (2.5-4.9); Potassium, Blood 3.7 mmol/L (3.5-5.5); Sodium, Blood 138 mmol/L (136-145)
--- NOTE | 2021-01-09 18:40 | NUR ---
SHIFT SUMMARY. A&OX3, FORGETFULL AT TIMES, ONE ASSIST TO BATHROOM WITH FWW AND GB. PLEASANT AND COOPERATIVE WITH CARE. PT DENIES N/V, SOB, AND PAIN. PT REPORTS POOR APPETITE, ASSISTED WITH ENCOURAGING ADEQUATE INTAKE WITH DINNER. NO DIALYSIS TODAY. PT PARTICIPATED WITH P/T AND TOLERATED WELL, P/T RECOMMENDS HOME WITH HH. NO OTHER CHANGES OR CONCERNS.
[2021-01-10 05:33] LABS: Hematocrit 24.1 % (37.0-53.0); Hemoglobin 7.2 g/dL (13.5-17.5)
[2021-01-10 05:53] LABS: Albumin, Blood 1.8 g/dL (3.4-5.0); Anion Gap 8 mmol/L (6-16); Blood Urea Nitrogen 67 mg/dL (8-24); CO2, Blood 29 mmol/L (21-32); Calcium, Blood 8.7 mg/dL (8.5-10.1); Chloride, Blood 101 mmol/L (98-108); Creatinine, Blood 6.11 mg/dL (0.60-1.20); Glomerular Filtration Rate 9 (60-); Glucose, Blood 93 mg/dL (70-99); Magnesium, Blood 2.2 mg/dL (1.6-2.4); Phosphorus, Blood 5.1 mg/dL (2.5-4.9); Potassium, Blood 3.9 mmol/L (3.5-5.5); Sodium, Blood 138 mmol/L (136-145)
--- NOTE | 2021-01-10 06:11 | NUR ---
Rn summary: Patient has rested well all shift. Lungs are clear. Pt did get up to BR and is steady on feet. Pt has been cooperative and appropriate. Pt has slept with cpap on RA, sats 93%. Bed alarm on. Call light in reach.
[2021-01-10] MEDS ORDERED: AMOCLA875 PO (12:27)
--- NOTE | 2021-01-10 14:18 | NUR ---
8672 PT DISHCARGED HOME WITH HH WITH . PT ESCORTED TO ENTRANCE VIA W/C. IV REMOVED. D/C INSTRUCTIONS REVIEWED WITH PT AND COPY PROVIDED. DIALYSIS COMPLETED TODAY WITH 2 UNITS PRBC GIVEN. NO OTHER CHANGES OR CONCERNS.
[2021-01-11] MEDS ORDERED: LACT (23:57)
[2021-01-11] MEDS ORDERED: AMOX-CLAV 875-1 EAC5 PO (23:57)
== END 2021-01-10 13:52 | disposition home health service (06) | DRG 871 ==
LOC: ER 18:29 → MEDS 23:17
PROVIDERS: Emergency Medicine; Internal Medicine; Internal Medicine Nephrology; Physician Assistant; ADMIT Internal Medicine
PROC: 30233N1 Transfusion of Nonautologous Red Blood Cells into Peripheral Vein, Percutaneous Approach (ICD-10-PCS; principal; 2021-01-06)
PROC: 5A1D70Z Performance of Urinary Filtration, Intermittent, Less than 6 Hours Per Day (ICD-10-PCS; 2021-01-06)
DX: A41.9 Sepsis, unspecified organism (principal); N18.6 End stage renal disease; I12.0 Hypertensive chronic kidney disease with stage 5 chronic kidney disease or end stage renal disease; D62 Acute posthemorrhagic anemia; E87.1 Hypo-osmolality and hyponatremia; N25.81 Secondary hyperparathyroidism of renal origin; M60.004 Infective myositis, unspecified left leg; I48.91 Unspecified atrial fibrillation; M79.81 Nontraumatic hematoma of soft tissue; G47.33 Obstructive sleep apnea (adult) (pediatric); E87.6 Hypokalemia; E86.9 Volume depletion, unspecified; E88.09 Other disorders of plasma-protein metabolism, not elsewhere classified; Z99.2 Dependence on renal dialysis; E78.5 Hyperlipidemia, unspecified; M79.605 Pain in left leg; M79.604 Pain in right leg; D63.1 Anemia in chronic kidney disease; Z86.718 Personal history of other venous thrombosis and embolism; Z88.8 Allergy status to other drugs, medicaments and biological substances; Z79.899 Other long term (current) drug therapy; Z87.891 Personal history of nicotine dependence; Z98.890 Other specified postprocedural states; Z90.49 Acquired absence of other specified parts of digestive tract
CPT/HCPCS: 36415; 36430; 74176; 80053; 80069; 80202; 83605; 83735; 85014; 85018; 85025; 85027; 85610; 86850; 86900; 86901; 86923; 87040; 87493; 94760; 94762; 96365; 96367; 97110; 97161; 99285-25; A9270; J2543; J3370; J7050; J7120; P9016

== ENCOUNTER 2021-01-11 10:43 | Observation (INO) | payer MEDICARE, OTHER ==
[~2021-01-11] VITALS: Ht 182.9 cm; Wt 91.2 kg
[2021-01-11 11:39] LABS: BASOPHILS ABSOLUTE AUTO 0.04 K/mm3 (0.00-0.23); BASOPHILS PERCENT AUTO 0 % (0-2); EOSINOPHILS ABSOLUTE AUTO 0.04 K/mm3 (0.00-0.68); EOSINOPHILS PERCENT AUTO 0 % (0-6); Hemoglobin 10.2 g/dL (13.5-17.5); IMMATURE GRAN ABSOLUTE AUTO 0.18 K/mm3 (0.00-0.10); IMMATURE GRAN PERCENT AUTO 1 % (0-1); LYMPHOCYTES PERCENT AUTO 4 % (21-46); MONOCYTES ABSOLUTE AUTO 1.29 K/mm3 (0.16-1.47); MONOCYTES PERCENT AUTO 7 % (4-13); Mean Corpuscular HGB 29.6 pg (26.0-34.0); Mean Corpuscular HGB Conc 31.9 g/dL (31.5-36.5); Mean Corpuscular Volume 93 fL (80-100); Mean Platelet Volume 9.8 fL (9.1-12.4); NEUTROPHILS PERCENT AUTO 88 % (41-73); Platelet Count 217 K/mm3 (150-400); RDW Coefficient Variation 16.5 % (11.7-14.2); RDW Standard Deviation 56.3 fL (35.1-46.3); Red Blood Cell Count 3.45 M/mm3 (4.30-5.90); White Blood Cell Count 19.35 K/mm3 (4.00-11.30)
[2021-01-11 12:03] LABS: Albumin, Blood 1.9 g/dL (3.4-5.0); Albumin/Globulin Ratio 0.5 (0.8-1.8); Bilirubin, Total 0.8 mg/dL (0.1-1.0); Calcium, Blood 8.4 mg/dL (8.5-10.1); Creatinine, Blood 5.37 mg/dL (0.60-1.20); Globulin, Blood 4.1 g/dL (2.2-4.0); Magnesium, Blood 1.7 mg/dL (1.6-2.4); Potassium, Blood 3.9 mmol/L (3.5-5.5)
[2021-01-11 14:41] LABS: Source, Urine Clean Catch
[2021-01-11 14:44] LABS: Bilirubin, Urine Neg (Neg); Blood, Urine 3+ (Neg); Glucose Qualitative, Urine Neg (Neg); Ketones, Urine Neg (Neg); Leukocyte Esterase, Urine 3+ (Neg); Nitrite, Urine Neg (Neg); Protein, Urine 4+ (Neg); Specific Gravity, Urine 1.015 (1.003-1.022); Urobilinogen, Urine NORM (Normal)
[2021-01-11 15:01] LABS: SARS-Cov-2 (COVID-19) PCR, MMC NEGATIVE (NEGATIVE)
[2021-01-11 15:11] LABS: Appearance, Urine Cloudy (Clear); Color, Urine Yellow (P-Yellow)
[2021-01-11 15:13] LABS: White Blood Cells, Urine TNTC /hpf (0-5)
[2021-01-11 15:14] LABS: Bacteria Many /hpf; Squamous Epithelial Cells Rare /hpf (Few)
[2021-01-11 21:49] LABS: C DIFFICILE DNA Duplicate (Negative)
[2021-01-11] MEDS ORDERED: LACT (23:57)
[2021-01-11] MEDS ORDERED: AMOX-CLAV 875-1 EAC5 PO (23:57)
[2021-01-12 05:14] LABS: BASOPHILS ABSOLUTE AUTO 0.02 K/mm3 (0.00-0.23); BASOPHILS PERCENT AUTO 0 % (0-2); EOSINOPHILS ABSOLUTE AUTO 0.05 K/mm3 (0.00-0.68); EOSINOPHILS PERCENT AUTO 1 % (0-6); Hematocrit 28.5 % (37.0-53.0); IMMATURE GRAN ABSOLUTE AUTO 0.06 K/mm3 (0.00-0.10); IMMATURE GRAN PERCENT AUTO 1 % (0-1); LYMPHOCYTES ABSOLUTE AUTO 0.95 K/mm3 (0.84-5.20); LYMPHOCYTES PERCENT AUTO 9 % (21-46); MONOCYTES PERCENT AUTO 7 % (4-13); Mean Corpuscular HGB 29.8 pg (26.0-34.0); Mean Corpuscular HGB Conc 31.6 g/dL (31.5-36.5); Mean Corpuscular Volume 94 fL (80-100); Mean Platelet Volume 10.2 fL (9.1-12.4); NEUTROPHILS ABSOLUTE AUTO 8.88 K/mm3 (1.96-9.15); NEUTROPHILS PERCENT AUTO 83 % (41-73); Platelet Count 174 K/mm3 (150-400); RDW Coefficient Variation 16.5 % (11.7-14.2); RDW Standard Deviation 56.8 fL (35.1-46.3); Red Blood Cell Count 3.02 M/mm3 (4.30-5.90); White Blood Cell Count 10.66 K/mm3 (4.00-11.30)
[2021-01-12 05:34] LABS: Bun/Creatinine Ratio 10.5 (12.0-20.0); Calcium, Blood 8.3 mg/dL (8.5-10.1); Creatinine, Blood 6.1 mg/dL (0.60-1.20); Potassium, Blood 4.8 mmol/L (3.5-5.5)
[2021-01-13 06:05] LABS: Hematocrit 28.2 % (37.0-53.0); Hemoglobin 8.6 g/dL (13.5-17.5); Mean Corpuscular HGB 29.6 pg (26.0-34.0); Mean Corpuscular HGB Conc 30.5 g/dL (31.5-36.5); Mean Corpuscular Volume 97 fL (80-100); Mean Platelet Volume 10.4 fL (9.1-12.4); Platelet Count 176 K/mm3 (150-400); RDW Coefficient Variation 16.7 % (11.7-14.2); RDW Standard Deviation 59.3 fL (35.1-46.3); Red Blood Cell Count 2.91 M/mm3 (4.30-5.90)
[2021-01-13 06:25] LABS: Albumin, Blood 1.8 g/dL (3.4-5.0); Anion Gap 8 mmol/L (6-16); Blood Urea Nitrogen 50 mg/dL (8-24); CO2, Blood 26 mmol/L (21-32); Calcium, Blood 8.2 mg/dL (8.5-10.1); Chloride, Blood 103 mmol/L (98-108); Creatinine, Blood 5.02 mg/dL (0.60-1.20); Glomerular Filtration Rate 11 (60-); Glucose, Blood 85 mg/dL (70-99); Magnesium, Blood 2.1 mg/dL (1.6-2.4); Phosphorus, Blood 5.3 mg/dL (2.5-4.9); Sodium, Blood 137 mmol/L (136-145)
[2021-01-13 08:35] LABS: C DIFFICILE DNA Negative (Negative)
[2021-01-13] MEDS ORDERED: AZIT500 PO (14:44)
[2021-01-14 07:11] LABS: HIV SCREEN 4TH GENERATION WRFX Non Reactive (Non Reactive)
== END 2021-01-13 16:15 | disposition home health service (06) ==
LOC: ER 10:43 → ERHOLD 10:44 → MEDS 10:44
PROVIDERS: Student in an Organized Health Care Education/Training Program; ADMIT Internal Medicine
DX: R50.9 Fever, unspecified (principal); G92 Toxic encephalopathy; M79.81 Nontraumatic hematoma of soft tissue; J90 Pleural effusion, not elsewhere classified; R19.7 Diarrhea, unspecified; E11.22 Type 2 diabetes mellitus with diabetic chronic kidney disease; I12.0 Hypertensive chronic kidney disease with stage 5 chronic kidney disease or end stage renal disease; N18.6 End stage renal disease; G47.33 Obstructive sleep apnea (adult) (pediatric); E86.9 Volume depletion, unspecified; E88.09 Other disorders of plasma-protein metabolism, not elsewhere classified; D64.9 Anemia, unspecified; I48.0 Paroxysmal atrial fibrillation; J44.9 Chronic obstructive pulmonary disease, unspecified; Z90.49 Acquired absence of other specified parts of digestive tract; Z99.2 Dependence on renal dialysis; Z88.8 Allergy status to other drugs, medicaments and biological substances; Z86.19 Personal history of other infectious and parasitic diseases; Z86.718 Personal history of other venous thrombosis and embolism; Z87.891 Personal history of nicotine dependence; Z20.822 Contact with and (suspected) exposure to COVID-19
CPT/HCPCS: 36415; 71045; 71260; 74176; 74177; 80048; 80053; 80069; 81001; 82595; 83605; 83615; 83735; 84145; 85025; 85027; 85651; 86140; 86430; 87040; 87086; 87389; 87493; 93005; 93010; 93306; 94762; 96365-59; 96366; 96367; 96376; 99285-25; A9270; G0257; G0378; J0456; J2543; J7050; J7120; Q9967; U0004

== ENCOUNTER 2021-01-18 08:08 | Inpatient (IN) | payer MEDICARE, OTHER ==
[~2021-01-18] VITALS: Ht 182.9 cm; Wt 92.9 kg
[~2021-01-18 08:08] MED LIST changes: +AMOX-CLAV 875-1 EAC5 PO; +AZIT500 PO; +LACT
[2021-01-18 08:30] LABS: BASOPHILS ABSOLUTE AUTO 0.02 K/mm3 (0.00-0.23); BASOPHILS PERCENT AUTO 0 % (0-2); EOSINOPHILS ABSOLUTE AUTO 0.02 K/mm3 (0.00-0.68); EOSINOPHILS PERCENT AUTO 0 % (0-6); Hematocrit 28.6 % (37.0-53.0); Hemoglobin 8.9 g/dL (13.5-17.5); IMMATURE GRAN ABSOLUTE AUTO 0.06 K/mm3 (0.00-0.10); IMMATURE GRAN PERCENT AUTO 1 % (0-1); LYMPHOCYTES ABSOLUTE AUTO 0.43 K/mm3 (0.84-5.20); LYMPHOCYTES PERCENT AUTO 6 % (21-46); MONOCYTES ABSOLUTE AUTO 0.45 K/mm3 (0.16-1.47); MONOCYTES PERCENT AUTO 6 % (4-13); Mean Corpuscular HGB 29.2 pg (26.0-34.0); Mean Corpuscular HGB Conc 31.1 g/dL (31.5-36.5); Mean Corpuscular Volume 94 fL (80-100); Mean Platelet Volume 9.3 fL (9.1-12.4); NEUTROPHILS ABSOLUTE AUTO 6.31 K/mm3 (1.96-9.15); NEUTROPHILS PERCENT AUTO 87 % (41-73); Platelet Count 171 K/mm3 (150-400); RDW Coefficient Variation 16.2 % (11.7-14.2); RDW Standard Deviation 55.5 fL (35.1-46.3); Red Blood Cell Count 3.05 M/mm3 (4.30-5.90); White Blood Cell Count 7.29 K/mm3 (4.00-11.30)
[2021-01-18 08:53] LABS: Albumin, Blood 1.9 g/dL (3.4-5.0); Albumin/Globulin Ratio 0.4 (0.8-1.8); Bilirubin, Total 0.4 mg/dL (0.1-1.0); Bun/Creatinine Ratio 8.3 (12.0-20.0); Calcium, Blood 8.3 mg/dL (8.5-10.1); Creatinine, Blood 7.08 mg/dL (0.60-1.20); Globulin, Blood 4.3 g/dL (2.2-4.0); Potassium, Blood 4.3 mmol/L (3.5-5.5); Total Protein, Blood 6.2 g/dL (6.4-8.2)
[2021-01-18 09:53] LABS: SARS-Cov-2 (COVID-19) PCR, MMC POSITIVE (NEGATIVE)
--- NOTE | 2021-01-18 11:57 | NUR ---
Called to ER to see pt and assist with plan of care. Pt is oriented to self and with struggled but could tell me where he was at. He was able to answer yes or no to most questions. He denies headaches some mild nausea, and mild shortness of breath. He denies chest pain. His main complaint is great fatigue and weakness. His affect is flat he states he can barely walk anymore and has fallen at home. 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 Called Rosita bardales manager reading at clinic and reviewed his care. She states up until recently he has been tolerating his treatments. He has had issues with worsening anemia, frailty and stlightly worse dementia and memory. His last treatment was difficult and he had a near fall after treatment. spoke with the social studies teacher about his care and he stated some decline. Both staff expressed hospice may be of benefit very soon. Spoke with about his care and prognosis. She sounded ill and is tyring to get a covid test. She states he has been dializing three days a week for four hours. It have been very difficult and he has been having more weakness. She stated the clinic has been short staffed and he hates going and is some times fearful. She states she spoke with dr wilcox today and will reduce treatment times. Discussed with that we will need to come up with a plan as he has been in hospital more and now has covid. She stated they have not discussed a plan. But recently his daughter wants them to move colser to her in [place]. We discussed hospice care and home health. She is not ready for hospice and wants him to rehab. Advised her that with covid he may not be able to reahb. discussed the risks of bein in the hospialt and his infrection risks in general. Discussed whet it take to qualify for rehab. Review of function and potential to recover from covid might be poot. Encouraged her to accempt hospice when it is time so the both do not experince terrible suffering. She was understanding and expressed having to reach some acceptance. Saturnino has an advance directive on file that states no life support. Reviewed carefully with cpr and ventilation and prognoiss. she is ok with DNR. updated animal care supervisor and hospitalist. He has his cell phone will have thaeraputdic calls with advised her to stay home.
[2021-01-18] MEDS ORDERED: GABA100 PO (12:36)
[2021-01-18] MEDS ORDERED: CARVEDILOL12.5 MG PO (12:36)
[2021-01-18] MEDS ORDERED: FLUT.05NI (12:37)
[2021-01-18] MEDS ORDERED: BUME2 PO (12:38)
[2021-01-18] MEDS ORDERED: Hair, Skin & N1 EACH PO (12:57)
[2021-01-18] MEDS ORDERED: VISBIOME 112.51 EACH PO (12:57)
--- NOTE | 2021-01-18 18:02 | NUR ---
PT ADMITED TO [facility] RM 353 FOR COVID+. REPORT RECIEVED FROM OMI MCINTOSH IN ER. PT ARRIVED TO [facility] AT 1600. ON ASSESSMENT PT IS A&O, PLEASANT AND COOPERATIVE WITH CARE. PT CHANGED IN TO HOSPITAL GOWN, ORIENTED TO ROOM, CALL LIGHT SYSTEM AND SAFETY PROCEDURES. PT VERBALIZED UNDERSTANDING AND AGREED TO USE CALL LIGHT FOR ASSISTANCE. PT HAS 20G IV SL IN RFA, PT HAS R SUBCLAVIAN CVC FOR HEMODIALYSIS IN PLACE, DRSMarty C/D/I. NEPHROLOGY CONSULT CALLED TO VERÓNICA JOLLEY CASTING CARRIER NOTIFIED OF PT'S ADMIT, PALLITVE CARE NOTIFIED OF PENDING CONSULT. PT REPORTS HE USES CPAP AT [facility] AND WILL NOT BE ABLE TO BRING IN HIS HOME EQUIPMENT UNTIL TOMORROW. RT NOTIFIED OF NEED FOR EQUIPMENT. CASTING CARRIER PRESENT AT 1815 TO START HEMODIALYSIS.
--- NOTE | 2021-01-19 04:51 | NUR ---
SHIFT SUMMARY A/O 2-3, IRRITABLE AT TIMES. ATTEMPTING TO GET OOB DESPITE NOT BEING ABLE TO STAND. COMPLIANT WITH CPAP AT NIGHT. PERMCATH TO RCW, HD COMPLETED AROUND BEGINNING OF SHIFT. BLOOD CULTURES SENT AT THAT TIME. PT REFUSING AM LABS, WILL CONTINUE TO ATTEMPT. BED IN LOWEST POSITION WITH CALL LIGHT IN REACH. BED ALARM ON FOR SAFETY. REPORT TO BE GIVEN TO ONCOMING RN.
[2021-01-19 08:17] LABS: BASOPHILS PERCENT AUTO 0 % (0-2); EOSINOPHILS PERCENT AUTO 0 % (0-6); Hemoglobin 8.3 g/dL (13.5-17.5); IMMATURE GRAN ABSOLUTE AUTO 0.02 K/mm3 (0.00-0.10); IMMATURE GRAN PERCENT AUTO 1 % (0-1); LYMPHOCYTES ABSOLUTE AUTO 0.25 K/mm3 (0.84-5.20); LYMPHOCYTES PERCENT AUTO 9 % (21-46); MONOCYTES ABSOLUTE AUTO 0.15 K/mm3 (0.16-1.47); MONOCYTES PERCENT AUTO 5 % (4-13); Mean Corpuscular HGB 29.5 pg (26.0-34.0); Mean Corpuscular HGB Conc 30.7 g/dL (31.5-36.5); Mean Corpuscular Volume 96 fL (80-100); Mean Platelet Volume 9.4 fL (9.1-12.4); NEUTROPHILS ABSOLUTE AUTO 2.49 K/mm3 (1.96-9.15); NEUTROPHILS PERCENT AUTO 86 % (41-73); Platelet Count 155 K/mm3 (150-400); RDW Coefficient Variation 15.9 % (11.7-14.2); RDW Standard Deviation 57.1 fL (35.1-46.3); Red Blood Cell Count 2.81 M/mm3 (4.30-5.90); White Blood Cell Count 2.91 K/mm3 (4.00-11.30)
[2021-01-19 08:41] LABS: Magnesium, Blood 2.1 mg/dL (1.6-2.4)
[2021-01-19 08:48] LABS: Albumin, Blood 1.9 g/dL (3.4-5.0); Albumin/Globulin Ratio 0.5 (0.8-1.8); Bilirubin, Total 0.4 mg/dL (0.1-1.0); Bun/Creatinine Ratio 9.3 (12.0-20.0); Calcium, Blood 8.2 mg/dL (8.5-10.1); Creatinine, Blood 5.94 mg/dL (0.60-1.20); Globulin, Blood 4.2 g/dL (2.2-4.0); Potassium, Blood 4.2 mmol/L (3.5-5.5); Total Protein, Blood 6.1 g/dL (6.4-8.2)
[2021-01-19 08:53] LABS: Phosphorus, Blood 8.5 mg/dL (2.5-4.9)
--- NOTE | 2021-01-19 11:39 | NUR ---
Review of pt with nursing, worked with ot well increased aggitation at night. gave them pass code to phone and aked staff to have him call his . Tried to call no answer pt kps score 40%. review of past medical care more frequent use of medical care. high risk for readmission. Will speak with again about getting more assistance or moving close to family.
--- NOTE | 2021-01-19 17:07 | NUR ---
PT DOING WELL TODAY ON ROOM AIR. PT UP IND IN ROOM W/ FWW AND DESPITE MX REMINDERS TO CALL FOR ASSIST WHEN GETTING UP. PT REPORTS HE FELLS BETTER TODAY. DR. MACIAS IN TODAY AND PLANNED TO D/C BUT FAMILY REQUESTING FURTHER EVAL AND E/C PLANNING FOR INCREASED LEVEL OF CARE AT HOME.
--- NOTE | 2021-01-20 04:16 | NUR ---
SHIFT SUMMARY A/OX3, FORGETFUL AT TIMES. 1 ASSIST WITH FWW. PERMCATH TO RCW. DENIES PAIN OR SOB. COMPLIANT WITH CPAP AT NIGHT. VSS, NO ACUTE CHANGES AT THIS TIME. BED IN LOWEST POSITION WITH CALL LIGHT IN REACH. WILL CONTINUE TO MONITOR AND REPORT TO ONCOMING RN.
[2021-01-20 05:39] LABS: Hematocrit 24.4 % (37.0-53.0); Hemoglobin 7.7 g/dL (13.5-17.5)
[2021-01-20 06:05] LABS: Albumin, Blood 1.8 g/dL (3.4-5.0); Anion Gap 11 mmol/L (6-16); Blood Urea Nitrogen 74 mg/dL (8-24); Bun/Creatinine Ratio 10.9 (12.0-20.0); CO2, Blood 27 mmol/L (21-32); Calcium, Blood 7.9 mg/dL (8.5-10.1); Chloride, Blood 94 mmol/L (98-108); Creatinine, Blood 6.79 mg/dL (0.60-1.20); Glomerular Filtration Rate 8 (60-); Glucose, Blood 126 mg/dL (70-99); Potassium, Blood 4.6 mmol/L (3.5-5.5); Sodium, Blood 132 mmol/L (136-145)
[2021-01-20 06:08] LABS: Phosphorus, Blood 8.3 mg/dL (2.5-4.9)
--- NOTE | 2021-01-20 18:13 | NUR ---
PT UP TO CHAIR FOR ALL MEALS TODAY SBA ASSIST WITH FWW TO BATHROOM. PT UP TO SHOWER AND WORK WITH PT TODAY. PT IS PLEASANT AND COOPERATIVE WITH CARE. PLANS FOR PT TO D/C HOME TOMORROW BEFORE NOON ESTABLISHED. PT WILL HAVE HH W/ AMEDYSIS AND RESUME HIS NORMAL OUTPATIENT DIALYSIS ON //. NO OTHER ACUTE CHANGES THIS SHIFT.
--- NOTE | 2021-01-21 04:06 | NUR ---
SHIFT SUMMARY A/OX3, FORGETFUL AT TIMES. DENIES PAIN OR SOB. COMPLIANT WITH HOME CPAP AT NIGHT. PERMCATH TO RCW. 1 ASSIST WITH FWW TO BATHROOM. VSS, NO ACUTE CHANGES AT THIS TIME. BED IN LOWEST POSITION WITH CALL LIGHT IN REACH. WILL CONTINUE TO MONITOR AND REPORT TO ONCOMING RN.
[2021-01-21 04:51] LABS: Hematocrit 24.2 % (37.0-53.0); Hemoglobin 7.7 g/dL (13.5-17.5)
[2021-01-21 05:25] LABS: Albumin, Blood 1.9 g/dL (3.4-5.0); Anion Gap 13 mmol/L (6-16); Blood Urea Nitrogen 95 mg/dL (8-24); Bun/Creatinine Ratio 12.6 (12.0-20.0); CO2, Blood 24 mmol/L (21-32); Chloride, Blood 94 mmol/L (98-108); Creatinine, Blood 7.51 mg/dL (0.60-1.20); Glomerular Filtration Rate 7 (60-); Glucose, Blood 121 mg/dL (70-99); Potassium, Blood 4.9 mmol/L (3.5-5.5); Sodium, Blood 131 mmol/L (136-145)
[2021-01-21 05:34] LABS: Phosphorus, Blood 8.2 mg/dL (2.5-4.9)
[2021-01-21] MEDS ORDERED: DEXA6 PO (11:23)
[2021-01-21] MEDS ORDERED: AMOCLA500 PO (11:23)
--- NOTE | 2021-01-21 12:09 | NUR ---
DISCHARGE PATIENT TRANSPORTED VIA WHEELCHAIR TO PRIVATE VEHICLE. DISCHARGE INSTRUCTIONS EXPLAINED TO PATIENT. PATIENT STATED UNDERSTANDING. PACKET SENT WITH PATIENT. BELONGININGS SENT WITH PATIENT. IV REMOVED WITHOUT DIFFICULTY. DIALYSIS APPOINTMENT SCHEDULED FOR 01/22 AT 1300.
== END 2021-01-21 11:54 | disposition home health service (06) | DRG 177 ==
LOC: ER 08:08 → ERHOLD 13:45 → MEDS 13:45
PROVIDERS: Emergency Medicine; Internal Medicine Nephrology; Nurse Practitioner Acute Care; ADMIT Hospitalist
PROC: 8E0ZXY6 Isolation (ICD-10-PCS; principal; 2021-01-18)
PROC: 3E0333Z Introduction of Anti-inflammatory into Peripheral Vein, Percutaneous Approach (ICD-10-PCS; 2021-01-18)
PROC: 5A1D70Z Performance of Urinary Filtration, Intermittent, Less than 6 Hours Per Day (ICD-10-PCS; 2021-01-19)
DX: U07.1 COVID-19 (principal); N18.6 End stage renal disease; J96.90 Respiratory failure, unspecified, unspecified whether with hypoxia or hypercapnia; I12.0 Hypertensive chronic kidney disease with stage 5 chronic kidney disease or end stage renal disease; N25.81 Secondary hyperparathyroidism of renal origin; Z66 Do not resuscitate; E83.39 Other disorders of phosphorus metabolism; J44.9 Chronic obstructive pulmonary disease, unspecified; E78.5 Hyperlipidemia, unspecified; I48.0 Paroxysmal atrial fibrillation; G47.33 Obstructive sleep apnea (adult) (pediatric); E88.09 Other disorders of plasma-protein metabolism, not elsewhere classified; I48.91 Unspecified atrial fibrillation; N40.0 Benign prostatic hyperplasia without lower urinary tract symptoms; D63.1 Anemia in chronic kidney disease; Z88.8 Allergy status to other drugs, medicaments and biological substances; Z79.899 Other long term (current) drug therapy; Z99.2 Dependence on renal dialysis; Z98.890 Other specified postprocedural states; Z86.718 Personal history of other venous thrombosis and embolism
CPT/HCPCS: 36415; 71045; 80053; 80069; 83735; 84100; 85014; 85018; 85025; 87040; 93005; 93010; 94660; 94760; 94761; 94762; 96374; 97110; 97116; 97161; 97165; 97530; 97535; 99285-25; A9270; J0881; J1100; J1644; U0004

== ENCOUNTER 2021-01-24 11:29 | Inpatient (IN) | payer MEDICARE, OTHER ==
[~2021-01-24] VITALS: Ht 182.9 cm; Wt 84.9 kg
[~2021-01-24 11:29] MED LIST changes: +AMOCLA500 PO; +CARVEDILOL12.5 MG PO; +DEXA6 PO; +FLUT.05NI; +Hair, Skin & N1 EACH PO; +VISBIOME 112.51 EACH PO
[2021-01-24 12:04] LABS: BASOPHILS ABSOLUTE AUTO 0.02 K/mm3 (0.00-0.23); BASOPHILS PERCENT AUTO 0 % (0-2); EOSINOPHILS PERCENT AUTO 0 % (0-6); Hematocrit 34.3 % (37.0-53.0); IMMATURE GRAN ABSOLUTE AUTO 0.33 K/mm3 (0.00-0.10); IMMATURE GRAN PERCENT AUTO 2 % (0-1); LYMPHOCYTES ABSOLUTE AUTO 0.32 K/mm3 (0.84-5.20); LYMPHOCYTES PERCENT AUTO 2 % (21-46); MONOCYTES ABSOLUTE AUTO 0.36 K/mm3 (0.16-1.47); MONOCYTES PERCENT AUTO 2 % (4-13); Mean Corpuscular HGB 29.5 pg (26.0-34.0); Mean Corpuscular HGB Conc 32.1 g/dL (31.5-36.5); Mean Corpuscular Volume 92 fL (80-100); NEUTROPHILS ABSOLUTE AUTO 14.63 K/mm3 (1.96-9.15); NEUTROPHILS PERCENT AUTO 94 % (41-73); Platelet Count 176 K/mm3 (150-400); RDW Coefficient Variation 15.8 % (11.7-14.2); RDW Standard Deviation 52.6 fL (35.1-46.3); Red Blood Cell Count 3.73 M/mm3 (4.30-5.90); White Blood Cell Count 15.66 K/mm3 (4.00-11.30)
[2021-01-24 12:21] LABS: Albumin, Blood 2.3 g/dL (3.4-5.0); Albumin/Globulin Ratio 0.5 (0.8-1.8); Bilirubin, Total 0.6 mg/dL (0.1-1.0); Bun/Creatinine Ratio 16.1 (12.0-20.0); Calcium, Blood 7.5 mg/dL (8.5-10.1); Creatinine, Blood 6.54 mg/dL (0.60-1.20); Globulin, Blood 4.6 g/dL (2.2-4.0); Potassium, Blood 5.4 mmol/L (3.5-5.5); Total Protein, Blood 6.9 g/dL (6.4-8.2); Troponin I 0.149 ng/mL (0.000-0.040)
--- NOTE | 2021-01-24 19:56 | NUR ---
PT ARRIVED TO ROOM APPROX 1630 AND SETTLED IN TO ROOM. CAME UP ON BIPAP. FOUND TO BE ATTEMPTING TO REMOVE SEVERAL TIMES. RT CAME AND REPLACED BIPAP WITH AIRVO WHICH PT CONTINUED TO TRY AND REMOVE. REQUIRED RESTRAINTS TO KEEP OXYGENATION IN PLACE. HD COMPLETED WHEN ARRIVED TO ROOM. HAS SAID A FEW WORDS BUT DON'T MAKE SENSE TO SITUATION. SPOKE WITH DAUGHTER ON PHONE JUST PRIOR TO SHIFT CHANGE. SATS BEGAN DROPPING JUST PRIOR TO SHIFT CHANGE AND HEART RATE INCREASED STARTING APPROX 1800. NOTIFIED OF ELEVATED HEART RATE WITH NEW ORDER FOR LORAZEPAM X1. Fi02 INCREASED TO 65% TO MAINTAIN SATS 90-92%. ONCOMING SHIFT NOTIFIED OF PT CONDTION.
--- NOTE | 2021-01-24 21:44 | NUR ---
PATIENT CALLED [facility] GAVE UPDATE, SHE GAVE ME SOME INFORMATION THAT PATIENT HEART RATE IS TYPICALLY HIGH HE DOESN'T USE HIS CPAP AT HOME, HE WAS RECENTLY ADMITTED ON 01/11 WITH DIAGNOSIS OF COVID DISCHARGED ON 01/13 WITH PNU ON 01/15 HE WAS TOO WEAK TO GET INTO THE CAR AFTER DIALYSIS, ON 01/16 BECOME FEBRILE AND STAYED UP WITH IM ALL NIGHT AND THEN HARD FOR HER TO REMEMBER SHE WAS UP TRYING TO TAKE CARE OF HIM UNTIL HE WAS ADMITTED HERE, SHE LET ME KNOW HE HAD PFIZER VACCINATION ON 08/12/20 AND SECOND DOSE ON 09/12/20, SHE WOULD LIKE IT IF WE COULD USE HIS CELL PHONE TO FACETIME WITH HER SO SHE CAN SEE HIM, VERY TEARFUL AND WORRIED ABOUT HIM, SHE HAD A TEST AND WAS COVID NEGATIVE. I LET HER KNOW THAT I WILL BE HERE FOR HER ANYTIME AND SHE CAN CALL TO CHECK ON HIM, HER NAME IS KATSANTA CASTILLO [phone].
--- NOTE | 2021-01-25 06:00 | NUR ---
REVIEWED ORIENTEE CHARTING
[2021-01-25 07:50] LABS: Hematocrit 31.7 % (37.0-53.0)
[2021-01-25 08:16] LABS: Anion Gap 12 mmol/L (6-16); Blood Urea Nitrogen 79 mg/dL (8-24); Bun/Creatinine Ratio 14.1 (12.0-20.0); CO2, Blood 29 mmol/L (21-32); Calcium, Blood 8.2 mg/dL (8.5-10.1); Chloride, Blood 98 mmol/L (98-108); Creatinine, Blood 5.61 mg/dL (0.60-1.20); Glomerular Filtration Rate 10 (60-); Glucose, Blood 139 mg/dL (70-99); Potassium, Blood 4.9 mmol/L (3.5-5.5); Sodium, Blood 139 mmol/L (136-145)
[2021-01-25 08:48] LABS: Phosphorus, Blood 8.4 mg/dL (2.5-4.9)
--- NOTE | 2021-01-25 11:10 | NUR ---
PT ALERT TO SELF. ABLE TO STATE NAME AND DATE OF . PATIENT STATED HE IS IN [facility]. ASKING REPETATIVE QUESTIONS. PUPILS REOUND, EQUAL, AND REACTIVE. DENIES NUMBNESS/TINGLING. TELE SHOWING SINUS WITH HR 80-90'S. DENIES CHEST PAIN/PRESSURE. VITAL SIGNS STABLE. ON AIRVO 60L AT 85% THIS AM, TURNED UP TO 100% AND PATIENT SATING MID 90'S. PATIENT PULLING AT AIRVO AND IV LINES. BILATERAL WRIST RESTRAINTS IN PLACE. Q2 TURNING. BOWEL TONES PRESENT. ATTENDS IN PLACE. DIALYSIS THIS AM IN ROOM. NPO AT THIS TIME. NURSING BEDSIDE SWALLOW EVAL DONE. PATIENT ABLE TO TAKE PILLS WITH WATER THIS AM, PATIENT PROCEEDED TO COUGH AFTER PILLS. SPEECH THERAPY ORDERED. WILL REMAIN NPO UNTIL SPEECH THERAPY EVALUATES. DIALYSIS IN ROOM AT THIS TIME. CALL LIGHT IN REACH. WILL CONTINUE TO MONITOR.
--- NOTE | 2021-01-25 11:47 | NUR ---
PT HR SUSTAINING 130-140'S. BP STABLE. DIALYSIS IN ROOM AT THIS TIME. DIALYSIS NURSE DECREASED AMOUNT OF FLUIDS TAKING OFF PATIENT. HR NOT DECREASING. CALL PLACED TO DR. SERNA, NEW ORDERS FOR IV METOPROLOL.
--- NOTE | 2021-01-25 14:18 | NUR ---
CALLED, UPDATE GIVEN. VERY EMOTIONAL MISSING . DIALYSIS FINISHED, 2L TAKEN OFF. PATIENT REPOSITIONED, HIPS FLOATED AND ORAL CARE DONE. SPEECH UNABLE TO SEE PATIENT TILL AM. PATIENT WILL REMAIN NPO UNTIL SPEECH EVAL. HR MAINTAINING 80'S. CALL LIGHT IN REACH. PATIENT SLEEPING AT THIS TIME. WILL CONTINUE TO MONITOR.
--- NOTE | 2021-01-25 16:48 | NUR ---
PT SLEEPING ON AND OFF THIS AFTERNOON. REMAINS NPO. ORAL CARE Q4. Q2 TURNING. PATIENT ABLE TO TALK WITH FROM ROOM PHONE. REMAINS CONFUSED, REPEATING "WHERE IS MY CANDY". BLADDER SCAN DONE WITH 35 ML. ATTENDS CHECKED AND DRY. CALL LIGHT IN REACH. WILL CONTINUE TO MONITOR.
--- NOTE | 2021-01-25 18:08 | NUR ---
SHIFT SUMMARY: NO ACUTE CHANGES. REMAINS CONFUSED. PATIENT SLEEPING ON AND OFF. REMAINS NPO. SEE PREVIOUS NOTES. AIRVO 60L AT 100% SATING LOW-MID 90'S. BILATERAL WRIST RESTRAINTS IN PLACE DUE TO PATIENT PULLING OFF AIRVO. Q2 TURNING. TELE REMAINS NS WITH HR 80-90'S. BP SLIGHTLY ELEVATED, DR. SERNA AWARE. CALL LIGHT IN REACH. DENIES PAINS/NEEDS AT THIS TIME. PLAN FOR SPEECH EVAL IN AM. WILL CONTINUE TO MONITOR AND REPORT OFF TO ONCOMING RN.
[2021-01-26 04:25] LABS: Hematocrit 31.9 % (37.0-53.0); Hemoglobin 9.9 g/dL (13.5-17.5)
[2021-01-26 04:43] LABS: Albumin, Blood 1.9 g/dL (3.4-5.0); Anion Gap 10 mmol/L (6-16); Blood Urea Nitrogen 64 mg/dL (8-24); Bun/Creatinine Ratio 14.3 (12.0-20.0); CO2, Blood 29 mmol/L (21-32); Calcium, Blood 8.8 mg/dL (8.5-10.1); Chloride, Blood 101 mmol/L (98-108); Creatinine, Blood 4.49 mg/dL (0.60-1.20); Glomerular Filtration Rate 13 (60-); Glucose, Blood 123 mg/dL (70-99); Magnesium, Blood 2.5 mg/dL (1.6-2.4); Phosphorus, Blood 7.3 mg/dL (2.5-4.9); Potassium, Blood 4.4 mmol/L (3.5-5.5); Sodium, Blood 140 mmol/L (136-145)
--- NOTE | 2021-01-26 18:33 | NUR ---
PT SUMMARY: PT REMAINED CONFUSED ALL SHIFT ONLY ALERT TO SELF, DOESNT KNOWN WHERE HE'S AT, REMAINS ON WRIST RESTRAINTS, KEEPS ON PULLING LINES AND TUBINGS, MULTIPLE ATTEMPTS OF GETTING OUT OF BED, BED ALARM ON. PT ALTERNATING BIPAP 14/8 65% FIO2 AND AIRVO 60L 60% TOLERATED WELL DESATS TO LOW 70'S WITH EXERTION RECOVERS QUICK. PT FAILED SPEECH EVAL THIS AM PT REMAINED NPO ORDER RECEIVED FOR CLINIMIX RUNNING AT 50MLS/HR. PT HAD 2 SOFT BMS FOR THE SHIFT, UNABLE TO TELL IF PT HAD URINE OUTPUT OR NOT, BLADDER SCAN SHOWS 200MLS RETAINED, PROVIDER IS AWARE. TO BLADDER SCAN Q6HRS NEEDED IF NO URINE OUTPUT. FAMILY IS UPDATED REGARDING PT'S SITUATION. ORAL CARE PROVIDED Q4 HRS, SUCTION AT BEDSIDE FOR MUCUS. NO OTHER ISSUES ENCOUNTERED FOR THE SHIFT, CALL LIGHTS IN REACH WILL REPORT TO ONCOMING SHIFT
[2021-01-27 03:39] LABS: Source, Urine Clean Catch
[2021-01-27 03:42] LABS: Hematocrit 28.4 % (37.0-53.0); Hemoglobin 8.8 g/dL (13.5-17.5)
[2021-01-27 03:42] LABS: Bilirubin, Urine Neg (Neg); Blood, Urine 1+ (Neg); Glucose Qualitative, Urine 3+ (Neg); Ketones, Urine Neg (Neg); Leukocyte Esterase, Urine 1+ (Neg); Nitrite, Urine Pos (Neg); Protein, Urine 4+ (Neg); Urobilinogen, Urine NORM (Normal)
[2021-01-27 03:47] LABS: Appearance, Urine Hazy (Clear); Color, Urine Yellow (P-Yellow)
[2021-01-27 03:48] LABS: Bacteria Many /hpf; Red Blood Cells, Urine 0-2 /hpf (0-2); Squamous Epithelial Cells Not Seen /hpf (Few); White Blood Cells, Urine TNTC /hpf (0-5)
[2021-01-27 04:07] LABS: Anion Gap 11 mmol/L (6-16); Blood Urea Nitrogen 91 mg/dL (8-24); CO2, Blood 28 mmol/L (21-32); Calcium, Blood 8.5 mg/dL (8.5-10.1); Chloride, Blood 102 mmol/L (98-108); Creatinine, Blood 5.69 mg/dL (0.60-1.20); Glomerular Filtration Rate 10 (60-); Glucose, Blood 143 mg/dL (70-99); Magnesium, Blood 2.2 mg/dL (1.6-2.4); Potassium, Blood 4.6 mmol/L (3.5-5.5); Sodium, Blood 141 mmol/L (136-145)
[2021-01-27 04:10] LABS: Phosphorus, Blood 8.5 mg/dL (2.5-4.9)
--- NOTE | 2021-01-27 06:25 | NUR ---
SHIFT SUMMARY ASSUMED CARE OF PT AT 1900. PT IS NOT ALERT TO SELF AND YARI OT ANSWER QUESTIONS APROPIATELY. PT REPEATS THE WORD "PLEASE" TO INDICAT THAT HE WANTS THE RESTRAINTS OFF. HEART SOUNDS REGULAR. PT HAS BEEN HAVING HIGH BP T/O THE NIGHT. NOTIFIED HOSPITALIST WHO ORDERED HYDRALAZINE WITH LITTLE EFFET, BP CONTINUES TO INCREASE. DR ARMIJO CAME TO SEE PT THIS AM AND ORDERED LABATELOL, AWAITING RECHECK AT 0700. LUNG SOUNDS ARE COURSE T/O. PT HAS BEEN ON THE BIPAP MOST OF THE NIGHT 14/8 WITH 75% FIO2. PT IS PUT ON AIRVO FOR ORAL CARE BUT QUICKLY DESATURATIONS TO 70%. PT BLADDER SCAN SHOWED 338, QUIÑONES WAS PLACED PER NIGHT HOSPITALIST. THERE WAS ONLY 150CC OF OUTPUT. WHEN CONSULTING WITH UROLOGIST ABOUT CATHETER, HE SAID TO TAKE IT OUT AND JUST STRAIGHT CATH NEEDED. PT HAS BEEN VERY AGITATED T/O THE SHIFT, PULLING ON RESTRATINS AND LINES. ATTEMPTED TO ASK BOTH HOSPITALIST AND NUROLOGIST FOR SOMETHING BUT WAS DENIED. UROLOGIST SAID TO HAVE DAYSHIFT DOCTOR GET SOMETHING FOR THIS PM. CALL LIGHT IN REACH, BED IN LOWEST POSTION, BED ALARM ON.
--- NOTE | 2021-01-27 09:45 | NUR ---
AM NOTE PATIENT NOW RESTING. CLINIMIX STOPPED TO RUN ROCEPHIN PER ORDERS. THIS NURSE GAVE PATIENT ALTERNATE REST FROM SOFT RESTRAINTS WHILE IN ROOM AND PATIENT REMAINED COOPERATIVE. SOFT WRIST RESTRAINTS NOW IN PLACE AND SKIN REMAINS INTACT. PATIENT ON BIPAP AT 14/8 AT 75% O2 AND SATS REMAIN AT 98-100%. WILL CONTINUE CLINIMIX PER ORDERS AFTER ROCEPHIN INFUSION COMPLETE.
--- NOTE | 2021-01-27 12:01 | NUR ---
CARE NOTE THIS NURSE ATTEMPTED TO PROVIDE ORAL CARE W/ SUCTION AND PATIENT DESATURATED INTO THE 70'S VIA AIRVO. BIPAP WAS IMMEDIATLY PUT BACK ON AND SATURATIONS RETURNED TO 98%. PT REMAINS CONFUSED AND AGITATED WHEN INTERVENTIONS PROVIDED SUCH KAIT CARE, BOOSTING IN BED. PATIENT WILL BECOME RELAXED WITH REASSURANCE AND NOW APPEARS TO BE RESTING.
--- NOTE | 2021-01-27 13:31 | NUR ---
CARE NOTE BLADDER SCAN AT 1300 SHOWED 207 ML AND NO SIGNS THAT PATIENT HAS VOIDED. THIS NURSE NOTIFIED DR ARMIJO PER ORDER AT 1330. NO NEW ORDERS.
--- NOTE | 2021-01-27 18:07 | NUR ---
SHIFT SUMMARY PT REMAINS ALERT ONLY TO HIMSELF. HE APPEARS CONFUSED AND AGITATED WHEN RESTRAINTS REMOVED FOR BREAKS. WHEN RESTRAINTS REAPPLIED AND WHEN REORIENTED, PT BECOMES MORE CALM AND APPEARS MORE RELAXED. PT ON BIPAP 14/8 AT 70% O2 AND SPO2 REMAINS AT 92%. PATIENT DESATURATES WHEN REMOVED FROM BIPAP. SBP RANGED FROM 156-168. LEFT IV IN HAND WAS UNABLE TO CONTINUE INFUSING CLINIMIX AT 1600. NEW IV LINE IS CURRENTY IN PROGRESS. NO OTHER ACUTE CHANGES NOTED. WILL CONTINUE TO MONITOR.
[2021-01-28 04:55] LABS: Hemoglobin 8.6 g/dL (13.5-17.5)
[2021-01-28 05:35] LABS: Anion Gap 10 mmol/L (6-16); Blood Urea Nitrogen 82 mg/dL (8-24); Bun/Creatinine Ratio 16.5 (12.0-20.0); CO2, Blood 29 mmol/L (21-32); Calcium, Blood 7.8 mg/dL (8.5-10.1); Chloride, Blood 105 mmol/L (98-108); Creatinine, Blood 4.96 mg/dL (0.60-1.20); Glomerular Filtration Rate 11 (60-); Glucose, Blood 120 mg/dL (70-99); Magnesium, Blood 2.2 mg/dL (1.6-2.4); Phosphorus, Blood 7.2 mg/dL (2.5-4.9); Potassium, Blood 4.5 mmol/L (3.5-5.5); Sodium, Blood 144 mmol/L (136-145)
--- NOTE | 2021-01-28 06:34 | NUR ---
SHIFT SUMMARY ASSUMED CARE OF PT AT 1900. PT IS MORE SLEEPY TODAY. PT IS STILL NOT ORIENTATED AT ALL. PT WAS VERY AGITATED WHILE GETTING DIALYSIS, HOSPITALIST NOTIFIED AND ORDERED 0.5 OF ATIVAN WITH LITTLE EFFECT. PT MOANS AND CRIES SOFTLY ON THE BIPAP, ASKING FOR HIS RESTRAINTS TO BE TAKEN OFF. HEART SOUNDS REGULAR. LUNG SOUNDS HAVE CRACKLES T/O. PT REMAINED ON THE BIPAP T/O THE NIGHT. SAURATIONS ABOVE 95%. PT DID NOT VOID THIS SHIFT. PT HAS A RED AREA ON HIS COCCYX, POSSIBLY FROM MOVING HIS BOTTOM FROM SIDE TO SIDE. CALL LIGHT IN REACH, BED IN LOWEST POSTION, BED ALARM ON.
--- NOTE | 2021-01-28 11:27 | NUR ---
PT RESTLESS, THRASHING. TELEPHONE CALL MADE TO PATIENTS DAUGHTER SO PT COULD LISTEN TO HER CONVERSATION. PT REMAINS AGITATED THRASHING HEAD AND DEVIKA AT RESTRAINTS. IV ATIVAN GIVEN. HYDRALAZINE GIVEN PER PARFAMETER
--- NOTE | 2021-01-28 13:45 | NUR ---
2 FAMILY MEMBERS IN TO SEE PATIENT. FAMILY MEMBERS SPOKE WITH PALLIATIVE CARE NURS DIANN UGALDE
--- NOTE | 2021-01-28 15:58 | NUR ---
Received a call from pt's Divina today. She states she has been thinking about "everything we talked about yesterday", and asked if there is any way she could come in and see her prior to making any decisions. I told her I would check with the charge nurse, who did agree to let both pt's and sister come to see him. I assisted them along with their bedside RN Macey with donning appropriate protective equipment. They visited for a bit, then I answered their questions. They have yet to make any decisions regarding plan of care. Expecting a call from pt's daughter Amanda if any changes made to plan of care.
--- NOTE | 2021-01-28 17:03 | NUR ---
REMAINS IN BILAT SOFT WRIST RESTRAINTS RESTLESS AND PULLING AT LINES, ATTEMPTS TO REMOVE BIPAP. PT OPENS EYES WHEN NURSE SPEAKS TO HIM BUT DOES NOT ANSWER QUESTIONS OR SPEAK WORDS, OCC MOANS. ATIVAN X1 FOR RESTLESSNESS. BIPAP SETTINGS UNCHANGED THROUGHOUT SHIFT. PT HAS NOT VOIDED, BLADDER SCAN X2.
[2021-01-28 17:38] LABS: PCO2 Arterial 39.9 mmHg (35-45); PO2 Arterial 54.8 mmHg (80-100); pH Blood Arterial 7.46 (7.35-7.45)
[2021-01-29 04:07] LABS: Hemoglobin 9.3 g/dL (13.5-17.5)
[2021-01-29 04:22] LABS: Albumin, Blood 2.4 g/dL (3.4-5.0); Anion Gap 12 mmol/L (6-16); Blood Urea Nitrogen 115 mg/dL (8-24); Bun/Creatinine Ratio 19.5 (12.0-20.0); CO2, Blood 27 mmol/L (21-32); Calcium, Blood 8.3 mg/dL (8.5-10.1); Chloride, Blood 106 mmol/L (98-108); Glomerular Filtration Rate 9 (60-); Glucose, Blood 138 mg/dL (70-99); Magnesium, Blood 2.5 mg/dL (1.6-2.4); Potassium, Blood 5.4 mmol/L (3.5-5.5); Sodium, Blood 145 mmol/L (136-145)
[2021-01-29 05:33] LABS: Phosphorus, Blood 8.5 mg/dL (2.5-4.9)
--- NOTE | 2021-01-29 05:37 | NUR ---
SHIFT SUMMARY PT CONTINUES TO BE IN SOFT WRIST RESTRAINTS BILAT. PT REMOVED FROM RESTRAINTS DURING CARE PROCEDURES AND WOULD ATTEMPT TO REMOVE BIPAP MASK. PT DID NOT VOID AND BLADDER SCAN SHOWED NO URINE. PT BECAME RESTLESS AND AGITATED AND WAS MEDICATED PER MAR. PT DID ATTEMPT TO REPOSITION SELF MULTIPLE TIMES AND WAS ASSISTED WHERE POSSIBLE TO POSITION ON THE PREFERRED SIDE. NO OTHER ACUTE CHANGES NOTED.
--- NOTE | 2021-01-29 07:26 | NUR ---
ASSUMED CARE: PT CURRENTLY ON BIPAP 16/01, 70% FIO2. BILATERAL WRIST RESTRAINTS. SATTING MID 90S ON THESE SETTINGS, SINUS TACH AT 114 ON TELE AT THIS TIME. CENTER MEDICAL SPECIALIST AT BEDSIDE
--- NOTE | 2021-01-29 08:30 | NUR ---
PT WAS GIVEN BREAK FROM BIPAP FOR ORAL CARE. PT BECAME VERY ANXIOUS AND WAS THRASHING HEAD AROUND. RESPIRATIONS REACHED THE 50S. PT WAS MOANING BUT NOT VERBALIZING. WAS HARD TO REORIENT. MASK REPLACED AND PT'S RESPIRATIONS DECREASED BACK INTO 30S.
--- NOTE | 2021-01-29 11:21 | NUR ---
CALL TO PALLIATIVE CARE REGARDING PT'S STATUS. NURSE IN DISCUSSIONS WITH PT'S FAMILY REGARDING STATUS
--- NOTE | 2021-01-29 13:09 | NUR ---
PT WAS GIVEN A DOSE OF ATIVAN WITH NO EFFECT ON ANXIETY. CONTINUES TO BREATHE ON AVERAGE OF 35 PER MINUTE, HR IN 1TEENS. FAMILY TO CONVERSE ABOUT COMFORT CARE. PT CONTINUES TO CRY OUT WITH ALL CARE OR REPOSITIONING. DISCUSSED WITH WELDING MACHINE ASSEMBLER AND DR SERNA AND RECIEVED ORDERS FOR PRECEDEX GTT. RN AT BEDSIDE GETTING SECOND IV SITE AT THIS TIME.
--- NOTE | 2021-01-29 14:37 | NUR ---
STARTED PT ON PRECEDEX GTT AT 0.3MCG/KG FOR ANXIETY AND INCREASED WORK OF BREATHING WITH RESPIRATIONS IN 30S FOR SAT IN LOW 90S. RECHECKED PT IN 30 MINUTES AND NOTED RESPIRATIONS WERE IN 20S BUT BREATHING PATTERN STILL APPEARS LABORED. INCREASED PRECEDEX TO 0.5MCG/KG. DISCUSSED WITH PALLIATIVE CARE NURSE WHO STATES SHE WILL BE CALLING PT'S FAMILY SHORTLY
--- NOTE | 2021-01-29 16:10 | NUR ---
PT APPEARS MORE COMFORTABLE AT THIS DOSE OF PRECEDEX AND DID NOT FIGHT CARE OR BECOME ANXIOUS. HOWEVER, RATTLE IS NOTED DEEP IN THROAT NOW. CALL TO PALLIATIVE CARE WHO SPOKE WITH DAUGHTER WHO WAS NOT RECEPTIVE TO CONVERSATION. PALLIATIVE CARE NURSE STATED SHE WOULD CALL PT'S AND LET THEM KNOW OF CHANGE. COMMERCIAL ANALYST APPROVED FAMILY TO COME IN AND SEE PT. AWAITING FURTHER UPDATES
--- NOTE | 2021-01-29 18:12 | NUR ---
SHIFT SUMMARY: PT IS RESTING IN BED WITH BILATERAL WRIST RESTRAINTS. BIPAP ON WITH SETTINGS 14/8 WITH 80% FIO2. PRECEDEX GTT AT 0.5MCG/KG AT THIS TIME. FAMILY WAS AT BEDSIDE AND IS NOW SPEAKING WITH PALLIATIVE CARE NURSE
--- NOTE | 2021-01-29 18:57 | NUR ---
Pt's came to see him today, along with her brother after a phone call from Dr. Simms regarding pt's current status. Pt has a very poor prognosis due to Covid, as he is currently on bipap and cannot come out of restraints, as he will attempt to pull his mask off. After Divina's visit, she requested to talk with this RN. We had a discussion, and she states she would like to return in the morning, and place pt on comfort care. Relayed this information to PCU bedside RN, and OMI Ann in Palliative Care. Pt's Divina states she will call tomorrow am to coordinate a time so she can be present when pt is placed on comfort care.
[2021-01-30 04:08] LABS: Hematocrit 27.4 % (37.0-53.0); Hemoglobin 8.2 g/dL (13.5-17.5)
[2021-01-30 04:28] LABS: Albumin, Blood 2.2 g/dL (3.4-5.0); Anion Gap 10 mmol/L (6-16); Blood Urea Nitrogen 88 mg/dL (8-24); Bun/Creatinine Ratio 19.7 (12.0-20.0); CO2, Blood 27 mmol/L (21-32); Calcium, Blood 8.3 mg/dL (8.5-10.1); Chloride, Blood 104 mmol/L (98-108); Creatinine, Blood 4.46 mg/dL (0.60-1.20); Glomerular Filtration Rate 13 (60-); Glucose, Blood 172 mg/dL (70-99); Magnesium, Blood 2.3 mg/dL (1.6-2.4); Potassium, Blood 5.5 mmol/L (3.5-5.5); Sodium, Blood 141 mmol/L (136-145)
[2021-01-30 04:39] LABS: Phosphorus, Blood 8.7 mg/dL (2.5-4.9)
--- NOTE | 2021-01-30 05:41 | NUR ---
SHIFT SUMMARY NO ACUTE CHANGES THIS SHIFT. PT REMAINS ALERT TO SELF. HR 90'S. ON PRECEDEX AT 0.7, TITRATED FROM 0.5 TO REACH APPROPRIATE COMFORT LEVEL AND TO HELP DECREASE RESP DISTRESS. PT REMAINS ON BIPAP 14/8 80%, SPO2 >92%. PT REMAINS IN SBWR TO PROTECT BIPAP/LINES. CLINIMIX CONTINUES TO INFUSE. PT W/ BM THIS SHIFT. ANURIC. POSSIBLY TO BECOME COMFORT CARE TODAY PER REPORT. BED ALARM IN PLACE. REMAINS IN ISOLATION.
--- NOTE | 2021-01-30 07:24 | NUR ---
ASSUMED CARE: PT RESTING IN BED WITH PRECEDEX GTT IN PLACE AT 0.7MCG/KG. BIPAP IN PLACE AT 14/8 WITH 80% FIO2. BILATERAL WRIST RESTRAINTS. FAMILY PLANS TO MAKE PT COMFORT CARE TODAY. NO ACUTE NEEDS AT THIS TIME.
--- NOTE | 2021-01-30 10:18 | NUR ---
PT WAS GIVEN TRIAL OUT OF RESTRAINTS WHILE RN WAS AT BEDSIDE AND HE BEGAN TO PULL AT MASK IMMEDIATELY. RESTRAINTS REPLACED. FIO2 INCREASED TO 85% AND SATTING 88% ON THIS. CALL TO PT'S TO LET HER KNOW OF STATUS. INFORMED HER THAT PT'S OXYGENATION DEMAND IS INCREASING AND THERE IS NOT MUCH ROOM FOR INCREASING OXYGEN. ALSO TOLD HER THAT UNLESS SHE TELLS US WE CAN TAKE BIPAP MASK OFF, HE WILL HAVE TO KEEP RESTRAINTS ON. STATES FAMILY IS MEETING AT 11 AND THEN WILL CALL WITH DECISION. PALLIATIVE CARE AND CHARGE AWARE.
--- NOTE | 2021-01-30 12:30 | NUR ---
PT'S FAMILY CAME TO SEE PT TO MAKE A DECISION REGARDING COMFORT CARE. RN MADE THEM AWARE OF URINE CULTURE AND THAT DR CHANGED ABX DUE TO SENSITIVITIES. FAMILY IS AWARE THAT DR IS UNSURE IF ANTIBIOTICS WILL HELP AT THIS POINT OR NOT DUE TO PT HAVE COMORDBIDITIES OF COVID AND RENAL FAILURE. FAMILY DECIDED TO CONTINUE WITH CURRENT CARE AND TO REASSESS TOMORROW. PALLIATIVE CARE MADE DR AWARE OF FAMILY WISHES
--- NOTE | 2021-01-30 17:50 | NUR ---
Pt continues to struggle with maintaining sats. Family in today to discuss comfort care. Review of pt with hospitalist as family struggling with decisions. Cautures anre back and change in antibiotic. Family notified in detail of the change. The daughter wants to wait on comfort care. The patient did not want to wait. Daughter spoke with Dr Wilcox he ordered dialysis. Called and relayed he had dialysis yesterday and we will dialize out the atibiotic. Dr wilcox has stat poatassium drawn so he will run today. pt kps score is 30% pt fragil and at risk for sudden cardiac event. Will review with life team.
--- NOTE | 2021-01-30 18:19 | NUR ---
STAT , NON-ROUTINE HOURS HEMODIALYSIS ORDERED BY DR ARMIJO FOR PATIENT WITH SERUM K+ 6.0 AND ELEVATED RESPIRATORY RATE AT 44 B/ MIN.
--- NOTE | 2021-01-30 18:50 | NUR ---
DINING SERVICES DIRECTOR NOTICED ST ELEVATIONS ON TELE. POTASSIUM 6.0 AND DIALYSIS NURSE AT BEDSIDE. EKG COMPLETED AND STATES STEMI. CALL TO HOSPITALIST WHO ORDERED STAT LABS AND WILL DETERMINE FURTHER PLANS FROM THAT. LABS SENT, AWAITING RESULT TO DETERMINE COURSE OF ACTION.
[2021-01-30 20:12] LABS: Mean Platelet Volume 11.2 fL (9.1-12.4); Platelet Count 53 K/mm3 (150-400)
[2021-01-30 20:28] LABS: International Normalized Ratio 1.73; Prothrombin Time Results 18.1 Sec (9.7-11.5)
--- NOTE | 2021-01-30 22:39 | NUR ---
TROPONIN SHIFT START - ST ELEVATION NOTED TO TELEMETRY. TROPONIN PULLED, CRITICALLY HIGH >20. UNABLE TO ASSES IF PT IS HAVING CHEST PAIN HE IS NONVERBAL, NOT ORIENTED AND ON PRECEDEX @ 0.7. DR SERNA CALLED, UPDATED. ORDERS TO START HEPARIN. COAGS DRAWN VIA CLERK OPERATOR. PHARMACIST CALLED THIS RN WITH RESULTS. PLATELETS HAVE DROPPED SIGNIFICANTLY. DR TURNER ORDERS TO NOT GIVE HEPARIN IT MAY DO MORE HARM THAN GOOD.
--- NOTE | 2021-01-31 05:09 | NUR ---
SHIFT SUMMARY SEE NOTE REGARDING TROPONIN. TROPONIN TRENDING UP. PT REMAINS SEDATED ON PRECEDEX @ 0.7 WITH PRN IV ATIVAN. STARTED SHIFT 1FIB 100'S BUT HAS SINCE RISEN TO 150'S AT TIMES, PRN LOPRESSOR 5MG PUSHES SUCCESFUL AT BRINGING HR DOWN TO 110'S BUT THIS ONLY LASTS FOR AN HOUR OR SO. PROVIDER AWARE. PT REMAINS ON BIPAP 14/8 80%. HAD 1 DARK GREEN BM TODAY. PULP BEATER FINISHED DIALYSIS AT BEGINNING OF SHIFT W/ NO REPORTED EVENTS. PT REMAINS IN SBWR. OTHERWISE, PT BEING TUIRNED AND ORAL CARE BEING PROVIDED. REMAINS IN ISOLATION. BED ALARM IN PLACE.
[2021-01-31 08:17] LABS: BASOPHILS ABSOLUTE AUTO 0.04 K/mm3 (0.00-0.23); BASOPHILS PERCENT AUTO 0 % (0-2); EOSINOPHILS PERCENT AUTO 0 % (0-6); Hematocrit 31.7 % (37.0-53.0); Hemoglobin 9.6 g/dL (13.5-17.5); IMMATURE GRAN ABSOLUTE AUTO 0.56 K/mm3 (0.00-0.10); IMMATURE GRAN PERCENT AUTO 2 % (0-1); LYMPHOCYTES ABSOLUTE AUTO 0.45 K/mm3 (0.84-5.20); LYMPHOCYTES PERCENT AUTO 2 % (21-46); MONOCYTES ABSOLUTE AUTO 0.36 K/mm3 (0.16-1.47); MONOCYTES PERCENT AUTO 1 % (4-13); Mean Corpuscular HGB 29.6 pg (26.0-34.0); Mean Corpuscular HGB Conc 30.3 g/dL (31.5-36.5); Mean Corpuscular Volume 98 fL (80-100); Mean Platelet Volume 12.4 fL (9.1-12.4); NEUTROPHILS ABSOLUTE AUTO 29.52 K/mm3 (1.96-9.15); NEUTROPHILS PERCENT AUTO 95 % (41-73); NRBC ABSOLUTE 0.02 K/mm3 (0.00-0.02); NRBC Auto 0.1 /100 WBC (0.0-0.2); RDW Coefficient Variation 17.3 % (11.7-14.2); RDW Standard Deviation 60.9 fL (35.1-46.3); Red Blood Cell Count 3.24 M/mm3 (4.30-5.90); White Blood Cell Count 30.93 K/mm3 (4.00-11.30)
[2021-01-31 08:34] LABS: Platelet Count 44 K/mm3 (150-400)
[2021-01-31 08:51] LABS: Albumin, Blood 2.2 g/dL (3.4-5.0); Anion Gap 10 mmol/L (6-16); Blood Urea Nitrogen 89 mg/dL (8-24); Bun/Creatinine Ratio 21.7 (12.0-20.0); CO2, Blood 27 mmol/L (21-32); Calcium, Blood 8.3 mg/dL (8.5-10.1); Chloride, Blood 107 mmol/L (98-108); Creatinine, Blood 4.11 mg/dL (0.60-1.20); Glomerular Filtration Rate 14 (60-); Glucose, Blood 118 mg/dL (70-99); Potassium, Blood 5.4 mmol/L (3.5-5.5); Sodium, Blood 144 mmol/L (136-145)
[2021-01-31 09:06] LABS: Phosphorus, Blood 8.4 mg/dL (2.5-4.9)
--- NOTE | 2021-01-31 14:00 | NUR ---
Call facilitated with the legal proxy and of the principal, Mrs Divina Nascimento. I explained to her that her is sadly afflicted with multisystem organ failure, continues to show no signs of clinical imrpovement, and is not expected to receive meaningful benefit from ongoing therapy. Further,I told her that ethically and medically we are now obliged to transition him to non-invasive support and comfort measures only. To proceed with an aggressive line of treatment would be disproportionate, cause undue suffering, and be an affront to Mr Faulkner dignity. I also offered condolences to Mrs Nascimento, her daughter, and her daughters . They expressed appreciation. I communicated the detial of this conversation to Dr Simms, PCU Charge Yun, and Palliative Care. Thank you for this consult. Regan Crowley ThD
--- NOTE | 2021-01-31 14:32 | NUR ---
Assisted two family members with donning PPE prior to entering pt's room. Case conferenced with pt's RN re: Comfort care orders. RN updated family on plan of care also.
--- NOTE | 2021-01-31 14:47 | NUR ---
COMFORT CARE TWO PT FAMILY MEMBERS AT BEDSIDE. PT MADE COMFORT CARE AT THIS TIME. PT MEDICATED WITH 5 MG IV MORPHINE. ALL GTT'S DISCONTINUED AND BIPAP REMOVED. PT PLACED ON 2L O2 NC FOR COMFORT. PT IS MINIMALLY RESPONSIVE. FAMILY REMAINS AT BEDSIDE. WILL CONTINUE TO MONITOR.
--- NOTE | 2021-01-31 14:56 | NUR ---
review of case with hospital ethicist plan is comfort care
--- NOTE | 2021-01-31 15:25 | NUR ---
TIME OF NO HEART TONES PRESENT WITH AUSCULTATION. NO RESPIRATIONS NOTED. TIME OF 1520. PT FAMILY AT BEDSIDE. ALL PT BELONGINGS GATHERED AND SENT HOME WITH FAMILY MEMBERS. FAMILY TO CALL BACK WITH HOME OF CHOICE.
--- NOTE | 2021-01-31 15:50 | NUR ---
Introduction: Recieved a call from Regan Crowley of pt actively dying. Assessment: Pt presented laying in bed with shallow breathing and unresponsive. Tearful spouse was sitting on the side of the bed and when introductions were made reached out her arm to come to her side. Additional family member present which was support to grieving spouse and called other family members to for grieving family to say good-bye. Prayer was said through the phone and music was sung to process and grieve. Intervention: Cultivated a relationship of care and support. Explored spiritual, emotional, and relational resources and needs. Provided prayer and bereavement support for grieveing spouse and family members according to familiy yuliana tradition. Provided active presence by providing additional mask, kleenex, chairs, words of hope and encouragement. Outcome: Spouse and extended family expressed gratitude for support. Follow up: No follow up needed at this time.
== END 2021-01-31 17:05 | DRG 177 ==
LOC: ER 11:29 → PCU 13:09
PROVIDERS: Emergency Medicine; Internal Medicine; Internal Medicine Nephrology; ADMIT Hospitalist
PROC: 8E0ZXY6 Isolation (ICD-10-PCS; principal; 2021-01-24)
PROC: 5A1D70Z Performance of Urinary Filtration, Intermittent, Less than 6 Hours Per Day (ICD-10-PCS; 2021-01-24)
PROC: 5A09557 Assistance with Respiratory Ventilation, Greater than 96 Consecutive Hours, Continuous Positive Airway Pressure (ICD-10-PCS; 2021-01-24)
PROC: 3E0333Z Introduction of Anti-inflammatory into Peripheral Vein, Percutaneous Approach (ICD-10-PCS; 2021-01-24)
PROC: 3E0336Z Introduction of Nutritional Substance into Peripheral Vein, Percutaneous Approach (ICD-10-PCS; 2021-01-28)
DX: U07.1 COVID-19 (principal); J12.82 Pneumonia due to coronavirus disease 2019; J80 Acute respiratory distress syndrome; N18.6 End stage renal disease; I21.3 ST elevation (STEMI) myocardial infarction of unspecified site; G92 Toxic encephalopathy; J44.0 Chronic obstructive pulmonary disease with (acute) lower respiratory infection; I12.0 Hypertensive chronic kidney disease with stage 5 chronic kidney disease or end stage renal disease; N25.81 Secondary hyperparathyroidism of renal origin; E87.1 Hypo-osmolality and hyponatremia; N39.0 Urinary tract infection, site not specified; J81.1 Chronic pulmonary edema; Z99.2 Dependence on renal dialysis; G47.33 Obstructive sleep apnea (adult) (pediatric); Z66 Do not resuscitate; Z51.5 Encounter for palliative care; I48.91 Unspecified atrial fibrillation; E87.5 Hyperkalemia; D63.1 Anemia in chronic kidney disease; D69.59 Other secondary thrombocytopenia; E83.39 Other disorders of phosphorus metabolism; F03.90 Unspecified dementia, unspecified severity, without behavioral disturbance, psychotic disturbance, mood disturbance, and anxiety; E78.5 Hyperlipidemia, unspecified; R74.01 Elevation of levels of liver transaminase levels; E87.70 Fluid overload, unspecified; E66.9 Obesity, unspecified; R54 Age-related physical debility; R45.1 Restlessness and agitation; B96.5 Pseudomonas (aeruginosa) (mallei) (pseudomallei) as the cause of diseases classified elsewhere; N40.0 Benign prostatic hyperplasia without lower urinary tract symptoms; Z88.8 Allergy status to other drugs, medicaments and biological substances; Z86.718 Personal history of other venous thrombosis and embolism; Z95.828 Presence of other vascular implants and grafts; Z98.49 Cataract extraction status, unspecified eye; Z98.890 Other specified postprocedural states; Z90.79 Acquired absence of other genital organ(s); Z79.899 Other long term (current) drug therapy; Z87.891 Personal history of nicotine dependence; Z78.1 Physical restraint status; Z68.26 Body mass index [BMI] 26.0-26.9, adult
CPT/HCPCS: 36415; 36600; 51700; 70450; 71045; 80053; 80069; 81001; 82803; 83735; 84132; 84484; 85014; 85018; 85025; 85049; 85610; 85730; 87077; 87086; 87186; 92610; 93005; 93010; 94660; 94762; 99285-25; A9270; C1751; J0360; J0696; J0713; J0881; J1100; J2060; J2270; J2930; J7050; J7131